=== PATIENT | male | born 1960 | race American Indian/Alaskan Native ===

== ENCOUNTER 2016-05-05 17:54 | Inpatient (IN) | payer MEDICARE, BC ==
[2016-05-05 17:55] VITALS: BMI 23.9
[2016-05-05] MEDS ORDERED: Sodium Chloride 0.9% 1,000 ML IV STA ×4 (18:15→23:33)
[2016-05-05] MEDS ORDERED: Barium Sulfate Susp 2.1% w/v, 2.0% w/w 450 mL Bottle PO ONE ×3 (18:30→18:35)
[2016-05-05 18:48] LABS: BASO # 0.1 K/uL (0.0-0.2); BASO % 0.5 % (0.0-2.0); LYMPH # 0.7 K/uL (1.0-4.3); LYMPH % 5.2 % (20.0-40.0); MEAN CORPUSCULAR HEMOGLOBIN 23.8 pg (27.0-31.0); MEAN CORPUSCULAR HGB CONC 31.7 g/dL (33.0-37.0); MONO # 0.9 K/uL (0.0-0.8); MONO % 6.4 % (0.0-10.0); NEUT # 12.2 K/uL (1.8-7.0); NEUT % 87.9 % (50.0-75.0); PLATELET COUNT 300 K/uL (130-400); RED CELL DISTRIBUTION WIDTH 14.9 % (11.5-14.5); WHITE BLOOD COUNT 13.9 K/uL (4.8-10.8)
[2016-05-05 18:54] LABS: MEAN CELL VOLUME 75.2 fl (80.0-94.0)
[2016-05-05 18:56] LABS: ALB/GLOB RATIO 1.3 (1.0-2.1); ALKALINE PHOSPHATASE 116 U/L (38-126); ALT/SGPT 47 U/L (21-72); AST/SGOT 45 U/L (17-59); BILIRUBIN,TOTAL 1.1 mg/dl (0.2-1.3); BLOOD UREA NITROGEN 23 mg/dl (9-20); CALCIUM 9.9 mg/dL (8.4-10.2); CARBON DIOXIDE 26 mmol/L (22-30); CHLORIDE 93 mmol/L (98-107); GFR AFRICAN-AMERICAN > 60; GLUCOSE,RANDOM 340 mg/dL (75-110); LIPASE 69 U/L (23-300); POTASSIUM 3.6 MMOL/L (3.6-5.0); SODIUM 149 mmol/l (132-148); TOTAL PROTEIN 9.4 G/DL (6.3-8.2)
[2016-05-05 19:16] LABS: NEUTROPHIL 90 % (42-75); TOTAL CELLS COUNTED 100
[2016-05-05 19:18] LABS: GIANT PLATELETS PRESENT; LARGE PLATELETS PRESENT
--- NOTE | 2016-05-05 20:04 | ED PDOC ---
HPI: Abdomen Time Seen by Provider: 05/05/16 18:13 Chief Complaint (Nursing): GI Problem Chief Complaint (Provider): GI problem History Per: Patient History/Exam Limitations: no limitations Onset/Duration Of Symptoms: Hrs (24x) Current Symptoms Are (Timing): Still Present Severity: Moderate Location Of Pain/Discomfort: Epigastric Associated Symptoms: Vomiting (non bloody, non bilious). denies: Fever, Other ( cough, shortness of breath) Last Bowel Movement: Today (small BM today, 2 episodes of diarrhea 24x hours ago ) Additional Complaint(s): 55 year old male with a pertinent medical history of gastroparesis, chronic pain neuropathy, HTN, and IDDM presents to the ED with complaints of a GI problem that started 24x hours ago. He reports having abdominal pain and vomiting (non bloody, non bilious), feeling weak and dehydrated, and having 2 episodes of diarrhea yesterday, but a small normal bowel movement today. He is unable to tolerate fluid and any other PO intake and reports that his symptoms are similar to previous episodes of gastroparesis attacks. He denies having any other associated symptoms including fever, cough and shortness of breath. Of note, patient usually is on insulin pump, however he reports he recently moved homes and as of yesterday evening was unable to use insulin pump due to supplies being packed. PMD: Dr. Gomez Past Medical History Reviewed: Historical Data, Nursing Documentation, Vital Signs Vital Signs: Last Vital Signs Temp 98.0 F 05/05/16 17:58 Pulse 107 H 05/05/16 23:18 Resp 18 05/05/16 23:18 BP 135/81 05/05/16 23:18 Pulse Ox 100 05/06/16 00:13 - Medical History PMH: Bronchitis, Diabetes (type I, insulin pump), HTN, Pneumonia Denies: CAD, HIV, Chronic Kidney Disease - Surgical History Surgical History: Tonsillectomy - Family History Family History: States: Diabetes (grandparents), Hypertension (grandparents) - Social History Current smoker - smoking cessation education provided: No Alcohol: None Drugs: Denies - Home Medications Home Medications: Ambulatory Orders Medication Instructions Recorded HYDROmorphone [Dilaudid] 4 mg PO Q6H PRN 08/25/15 Methadone 15 mg PO BID 08/25/15 Pregabalin [Lyrica] 100 mg PO BID 08/25/15 Atenolol [Tenormin] 100 mg PO DAILY 01/05/16 - Allergies Allergies/Adverse Reactions: Allergies Allergy/AdvReac Type Severity Reaction Status Date / Time iodine Allergy RASH Verified 05/05/16 17:58 shellfish derived Allergy RASH Verified 05/05/16 17:58 Review of Systems ROS Statement: Except As Marked, All Systems Reviewed And Found Negative Constitutional: Negative for: Fever Respiratory: Negative for: Cough, Shortness of Breath Gastrointestinal: Positive for: Nausea, Vomiting, Abdominal Pain. Negative for : Diarrhea Physical Exam - Reviewed Nursing Documentation Reviewed: Yes Vital Signs Reviewed: Yes - Physical Exam Appears: Positive for: Well, Non-toxic, Uncomfortable Head Exam: Positive for: ATRAUMATIC, NORMOCEPHALIC Skin: Positive for: Normal Color, Warm, Dry Eye Exam: Positive for: Other (tachy mucous membranes) Cardiovascular/Chest: Positive for: Regular Rate, Rhythm, Chest Non Tender Respiratory: Positive for: Normal Breath Sounds. Negative for: Respiratory Distress Gastrointestinal/Abdominal: Positive for: Tenderness (epigastric tenderness) Neurologic/Psych: Positive for: Alert, Oriented (3x) - Laboratory Results Result Diagrams: 05/05/16 18:43 05/05/16 18:43 - ECG O2 Sat by Pulse Oximetry: 100 (RA) Pulse Ox Interpretation: Normal - Critical Care Total Time (In Min): 60 Medical Decision Making Medical Decision Makin:13 Initial impression: 55 year old male has abdominal pain and vomiting insetting of gastroparesis. Initial plan: * CT abd and pelvis PO contrast only * EKG * CMP * lipase * udip * CBC * dilaudid 1mg IVP * sodium chloride 1,000ml IV 1,000mls/hr * pepcid 20mg IV * readi-cat 2 150ml PO * readi-cat 2 300ml PO * readi-cat 2 450ml PO * zofran 4mg IV * accuchek * urinalysis * reevaluation 2330: Labs reviewed, show no clinically significant abnormalities with exception of mild leukocytosis, hypernatremia, and hyperglycemia consistent with patient's known diabetes. Patient reports marked improvement in symptoms after fluid boluses, IV insulin, dilaudid, and zofran. ABG shows no indication of DKA. Case discussed with Dr. Gomez who asked provider to call Dr. Metzger. Case discussed with Dr. Metzger who is covering for Dr. Mac for GI consultation. Patient admitted under Dr. Gomez. Dx: diabetic gastroparesis, hypernatremia, hyperglycemia, abdominal pain itz 0009: CT A/P impression: 1. Stable wall thickening in the distal esophagus, cannot exclude esophagitis. 2. Stable mild colonic diverticulosis without evidence for acute diverticulitis. 3. There may be punctate nonobstructive left nephrolithiasis. Scribe Attestation: Documented by Columba Faulkner and Oswald Trujillo acting as scribes for Hair Roth MD. Provider Scribe Attestation: All medical record entries made by the Scribe were at my direction and personally dictated by me. I have reviewed the chart and agree that the record accurately reflects my personal performance of the history, physical exam, medical decision making, and the department course for this patient. I have also personally directed, reviewed, and agree with the discharge instructions and disposition. Disposition - Clinical Impression Clinical Impression: Abdominal pain, Hyperglycemia, Hypernatremia, Gastroparesis due to DM - Patient ED Disposition Is Patient to be Admitted: Yes - Disposition Disposition Time: 23:30 Condition: FAIR
[2016-05-05] MEDS ORDERED: Insulin Regular 100 units/ml IV ONE (21:26)
[2016-05-05 21:55] LABS: RBC URINE 1 /hpf (0-3); URINE BILIRUBIN NEGATIVE (NEGATIVE); URINE BLOOD SMALL (NEGATIVE); URINE COLOR YELLOW (YELLOW); URINE GLUCOSE (UA) >=500 mg/dL (Normal); URINE KETONE 80 mg/dL (NEGATIVE); URINE LEUKOCYTE ESTERASE NEG Leu/uL (Negative); URINE PROTEIN 100 mg/dL (NEGATIVE); URINE UROBILINOGEN 0.2-1.0 mg/dL (0.2-1.0); WBC URINE < 1 /hpf (0-5)
[2016-05-05] MEDS ORDERED: Insulin Regular 100 units/ml ONE (22:30)
[2016-05-05] MEDS ORDERED: Glucagon Recombinant 1 mg Inj IM PRN (23:14)
[2016-05-05] MEDS ORDERED: Dextrose 50% SYRINGE Inj (50 ml) IV PRN (23:14)
[2016-05-05 23:30] LABS: ABG ALLEN TEST YES; ARTERIAL BLOOD GAS HCO3 30.1 mmol/L (21-28); ARTERIAL BLOOD GAS MODE ROOM AIR; ARTERIAL BLOOD GAS PH 7.49 (7.35-7.45); ARTERIAL BLOOD GAS PO2 88 mm/Hg (80-100)
[2016-05-05] MEDS ORDERED: Sucralfate 1 gm/10 ml Oral Susp UD PO STA (23:57)
[2016-05-06] MEDS ORDERED: Sucralfate 1 gm/10 ml Oral Susp UD ONE (00:40)
[2016-05-06] MEDS: Insulin Regular 100 units/ml SC SCH ×3 (07:30→17:07)
--- NOTE | 2016-05-06 08:06 | CARD ---
APPROVED REPORT EKG Measurement Heart [id number] <Conclusion> Normal sinus rhythm Possible Left atrial enlargement Nonspecific ST abnormality Prolonged QT Abnormal ECG
[2016-05-06] MEDS ORDERED: Enoxaparin 30 mg Syringe SC SCH (09:00)
[2016-05-06 09:22] LABS: BASO # 0.1 K/uL (0.0-0.2); BASO % 0.3 % (0.0-2.0); LYMPH # 1.2 K/uL (1.0-4.3); LYMPH % 6.2 % (20.0-40.0); MEAN CORPUSCULAR HEMOGLOBIN 24.4 pg (27.0-31.0); MEAN CORPUSCULAR HGB CONC 32.1 g/dL (33.0-37.0); MEAN PLATELET VOLUME 9.1 fl (7.2-11.7); MONO # 1.7 K/uL (0.0-0.8); MONO % 8.2 % (0.0-10.0); NEUT # 17.2 K/uL (1.8-7.0); NEUT % 85.3 % (50.0-75.0); RED CELL DISTRIBUTION WIDTH 14.8 % (11.5-14.5); WHITE BLOOD COUNT 20.2 K/uL (4.8-10.8)
[2016-05-06 09:26] LABS: CHLORIDE 102 mmol/L (98-107); SODIUM 142 mmol/l (132-148)
[2016-05-06 09:27] LABS: POTASSIUM 3.5 MMOL/L (3.6-5.0)
[2016-05-06 09:29] LABS: ALB/GLOB RATIO 1.3 (1.0-2.1); ALKALINE PHOSPHATASE 84 U/L (38-126); ALT/SGPT 36 U/L (21-72); AST/SGOT 26 U/L (17-59); BLOOD UREA NITROGEN 18 mg/dl (9-20); CALCIUM 8.5 mg/dL (8.4-10.2); CARBON DIOXIDE 26 mmol/L (22-30); GFR AFRICAN-AMERICAN > 60; GLUCOSE,RANDOM 183 mg/dL (75-110)
[2016-05-06 09:33] LABS: PARTIAL THROMBOPLASTIN TIME 28.6 SECONDS (23.3-32.5)
[2016-05-06] MEDS: Sodium Chloride 0.45% 1,000 ML IV SCH ×2 (10:00→19:20)
--- NOTE | 2016-05-06 11:18 | CT ---
PROCEDURE: CT Abdomen and Pelvis without IV contrast. HISTORY: abd pain COMPARISON: CT abdomen and pelvis without IV contrast performed 06/17/15 TECHNIQUE: Contiguous axial images of the abdomen and pelvis. Oral contrast was administered. No IV contrast given. Coronal and Sagittal reformats generated and reviewed. Radiation dose: Total exam DLP = 535.10 mGy-cm. FINDINGS: There is limited evaluation of the solid organs without the administration of IV contrast. LOWER THORAX: No visible consolidation, pleural effusion, or pneumothorax. Marked wall thickening of the distal esophagus. LIVER: Unremarkable unenhanced appearance. GALLBLADDER AND BILE DUCTS: Unremarkable unenhanced appearance. PANCREAS: Unremarkable unenhanced appearance. SPLEEN: Unremarkable unenhanced appearance. ADRENALS: Unremarkable unenhanced appearance. KIDNEYS AND URETERS: Punctate nonobstructing left renal calculus. No hydronephrosis or obstructing renal calculus. Minimal perinephric stranding. BLADDER: The urinary bladder appears unremarkable. REPRODUCTIVE: The prostate gland appears borderline enlarged. APPENDIX: The appendix appears within normal limits of caliber. No secondary signs of acute appendicitis. BOWEL: The stomach is nondistended. The bowel loops appear within normal limits of caliber without evidence of intestinal obstruction. Diverticulosis without CT evidence of acute diverticulitis. Circumferential thickening of the rectosigmoid colon. PERITONEUM: No significant free fluid. No definite free air. LYMPH NODES: Prominent mesenteric lymph nodes and associated inflammatory changes ; correlate clinically for possibility of mesenteric panniculitis. VASCULATURE: No aortic aneurysm. BONES: Degenerative changes of the spine. Large at L2 superior endplate Schmorl's node. OTHER FINDINGS: None. IMPRESSION: Marked wall thickening of the distal esophagus. Correlate clinically including endoscopy if indicated. Circumferential thickening of the rectosigmoid colon can be seen in setting of chronic diverticulosis. Clinical correlation is recommended to exclude colitis (I.e. infectious, inflammatory, ischemic), however this is considered less likely due to lack of associated inflammatory changes. Follow-up may be considered with colonoscopy when clinically feasible. Mild diverticulosis without CT evidence of acute diverticulitis. Punctate nonobstructing left renal calculus. Prominent mesenteric lymph nodes and associated inflammatory changes ; correlate clinically for possibility of mesenteric panniculitis. Borderline enlargement of the prostate gland. Recommend correlation with PSA. Preliminary impression was provided by [facility].
--- NOTE | 2016-05-06 13:57 | CP.PCM.CON ---
<Kwadwo Mathias - Last Filed: 05/06/16 17:17> History of Present Illness - History of Present Illness History of Present Illness: PGY4 GI Fellow Consult Note Patient is a 55yo male with PMHx significant for DMT2, suspected gastroparesis, HTN, opioid induced constipation, diabetic foot ulcers who presented to the ED with nausea and vomiting. Patient states that tow days prior to arrival he ate some questionable [place] food and immediately felt ill shortly thereafter with abdominal cramping, nausea and vomiting. He continued to have multiple bouts of emesis and began to notice some dark black/maroon emesis prompting him to come to the ED. Symptoms are similar to episodes he has had in the past of intractable vomiting which he attributes to gastroparesis. Does admit to more liquid/loose stool in the days leading up to admission but believes this could be secondary to his Movantik which he uses on an as needed basis. No weight loss , fever, chills, sick contacts or recent antibiotic usage. PMHx: See HPI PSHx: Right foot osteomyelitis debridement FHx: Denies Social: Denies tobacco, EtOH, illicit drug use Endo: 04/05 - EGD/Colonoscopy - 8mm cecal tubular adenoma, diverticulosis; H pylori negative gastritis Review of Systems - Constitutional Constitutional: Anorexia, Weakness. absent: Chills, Fever - EENT Eyes: absent: Change in Vision Nose/Mouth/Throat: absent: Sore Throat - Cardiovascular Cardiovascular: absent: Chest Pain, Claudication, Diaphoresis - Respiratory Respiratory: absent: Cough, Dyspnea, Excessive Mucous Production - Gastrointestinal Gastrointestinal: Abdominal Pain, Constipation, Cramping, Diarrhea, Loose Stools , Nausea, Vomiting. absent: Dyspepsia, Dysphagia, Heartburn, Hematochezia, Odynophagia - Genitourinary Genitourinary: absent: Change in Urinary Stream, Dysuria, Urinary Urgency - Musculoskeletal Musculoskeletal: absent: Back Pain, Neck Pain - Integumentary Integumentary: absent: New Lesions, Rash - Neurological Neurological: absent: Dizziness, Numbness, Focal Weakness - Psychiatric Psychiatric: absent: Anxiety, Depression - Endocrine Endocrine: absent: Polydipsia, Polyphagia, Polyuria - Hematologic/Lymphatic Hematologic: absent: Easy Bleeding, Easy Bruising, Lymphadenopathy Past Patient History - Past Medical History & Family History Past Medical History?: Yes - Past Social History Smoking Status: Never Smoked - CARDIAC Hx Cardiac Disorders: Yes Hx Hypertension: Yes - PULMONARY Hx Respiratory Disorders: Yes Hx Bronchitis: Yes Hx Pneumonia: Yes - NEUROLOGICAL Hx Neurological Disorder: Yes (Neuropathy) - HEENT Hx HEENT Problems: No - RENAL Hx Chronic Kidney Disease: No - ENDOCRINE/METABOLIC Hx Endocrine Disorders: Yes Hx Diabetes Mellitus Type 2: Yes - HEMATOLOGICAL/ONCOLOGICAL Hx Blood Disorders: No Hx Human Immunodeficiency Virus (HIV): No - INTEGUMENTARY Hx Dermatological Problems: No Other/Comment: Diabetic ulcer left foot - MUSCULOSKELETAL/RHEUMATOLOGICAL Hx Musculoskeletal Disorders: No Hx Falls: No - GASTROINTESTINAL Hx Gastrointestinal Disorders: Yes Other/Comment: gastroparesis - GENITOURINARY/GYNECOLOGICAL Hx Genitourinary Disorders: No - PSYCHIATRIC Hx Substance Use: No - SURGICAL HISTORY Hx Surgeries: Yes Hx Tonsillectomy: Yes - ANESTHESIA Hx Anesthesia: Yes Hx Anesthesia Reactions: No Hx Malignant Hyperthermia: No Has any member of the family had a problem w/ anesthesia?: No Meds Allergies/Adverse Reactions: Allergies Allergy/AdvReac Type Severity Reaction Status Date / Time iodine Allergy RASH Verified 05/05/16 17:58 shellfish derived Allergy RASH Verified 05/05/16 17:58 - Medications Medications: Current Medications Atenolol (Atenolol) 100 mg PO DAILY [facility] Dextrose (Glutose 15) 0 gm PO ONCE PRN; Protocol PRN Reason: Hypoglycemia Protocol Dextrose (Dextrose 50% Inj) 0 ml IV STAT PRN; Protocol PRN Reason: Hyglycemia Protocol Enoxaparin Sodium (Lovenox) 40 mg SC DAILY [facility] PRN Reason: Protocol Famotidine (Pepcid) 20 mg IVP Q12 [facility] Last Admin: 05/06/16 12:05 Dose: 20 mg Glucagon (Glucagen Diagnostic Kit) 0 mg IM STAT PRN; Protocol PRN Reason: Hypoglycemia Protocol Hydromorphone HCl (Dilaudid) 1 mg IVP Q6 PRN PRN Reason: abdominal pain Sodium Chloride (Sodium Chloride 0.45%) 1,000 mls @ 100 mls/hr IV .Q10H [facility] Stop: 05/07/16 09:16 Last Admin: 05/06/16 10:00 Dose: 100 mls/hr Insulin Human Regular (Humulin R) 0 units SC ACHS [facility]GEN[facility] PRN Reason: Protocol Metoclopramide HCl (Reglan) 10 mg IVPB Q6 PRN PRN Reason: Nausea/Vomiting Last Admin: 05/06/16 06:05 Dose: 10 mg Physical Exam - Constitutional Appears: Non-toxic, No Acute Distress - Eye Exam Eye Exam: EOMI, PERRL - ENT Exam ENT Exam: Mucous Membranes Moist - Respiratory Exam Respiratory Exam: Clear to Auscultation Bilateral. absent: Rales, Rhonchi, Wheezes - Cardiovascular Exam Cardiovascular Exam: RRR, +S1, +S2 - GI/Abdominal Exam GI & Abdominal Exam: Normal Bowel Sounds, Soft. absent: Distended, Firm, Guarding, Organomegaly, Rigid, Tenderness - Extremities Exam Extremities exam: Positive for: normal inspection. Negative for: pedal edema - Neurological Exam Neurological exam: Alert, Oriented x3 - Psychiatric Exam Psychiatric exam: Normal Affect, Normal Mood - Skin Skin Exam: Dry, Warm Results - Vital Signs Recent Vital Signs: Last Vital Signs Temp 99 F 05/06/16 07:53 Pulse 109 H 05/06/16 07:53 Resp 20 05/06/16 07:53 BP 155/90 H 05/06/16 07:53 Pulse Ox 98 05/06/16 07:53 - Labs Result Diagrams: 05/06/16 09:10 05/06/16 09:10 Labs: Laboratory Results - last 24 hr 05/05/16 05/05/16 05/05/16 21:43 22:34 23:02 WBC RBC Hgb Hct MCV MCH MCHC RDW Plt Count MPV Neut % (Auto) Lymph % (Auto) Clayton % (Auto) Eos % (Auto) Baso % (Auto) Neut # Lymph # Clayton # Eos # Baso # PT INR APTT pCO2 40 pO2 88 HCO3 30.1 H ABG pH 7.49 H ABG Total CO2 31.7 H ABG O2 Saturation 99.4 H ABG Base Excess 6.6 H Edmund Test Yes ABG Potassium 3.2 L A-a O2 Difference 12.0 Sodium 138.0 Chloride 106.0 Glucose 193 H Lactate 2.0 Vent Mode Room air FiO2 21.0 Crit Value Called To etta Roth md Crit Value Called By Sb Crit Value Read Back Y Blood Gas Notified Time 2330 Potassium Carbon Dioxide Anion Gap BUN Creatinine Est GFR ( Amer) Est GFR (Non-Af Amer) POC Glucose (mg/dL) 262 H Random Glucose Calcium Total Bilirubin AST ALT Alkaline Phosphatase Total Protein Albumin Globulin Albumin/Globulin Ratio Arterial Blood Potassium 3.2 L Urine Color Yellow Urine Clarity Clear Urine pH 5.0 Ur Specific Dresher 1.032 H Urine Protein 100 Urine Glucose (UA) >=500 Urine Ketones 80 Urine Blood Small Urine Nitrate Negative Urine Bilirubin Negative Urine Urobilinogen 0.2-1.0 Ur Leukocyte Esterase Neg Urine RBC (Auto) 1 Urine Microscopic WBC < 1 05/05/16 05/06/16 05/06/16 23:46 05:43 09:10 WBC 20.2 H RBC 5.66 Hgb 13.8 Hct 43.0 MCV 76.0 L MCH 24.4 L MCHC 32.1 L RDW 14.8 H Plt Count 229 MPV 9.1 Neut % (Auto) 85.3 H Lymph % (Auto) 6.2 L Clayton % (Auto) 8.2 Eos % (Auto) 0.0 Baso % (Auto) 0.3 Neut # 17.2 H Lymph # 1.2 Clayton # 1.7 H Eos # 0.0 Baso # 0.1 PT 12.1 H INR 1.16 H APTT 28.6 pCO2 pO2 HCO3 ABG pH ABG Total CO2 ABG O2 Saturation ABG Base Excess Edmund Test ABG Potassium A-a O2 Difference Sodium 142 Chloride 102 Glucose Lactate Vent Mode FiO2 Crit Value Called To Crit Value Called By Crit Value Read Back Blood Gas Notified Time Potassium 3.5 L Carbon Dioxide 26 Anion Gap 18 BUN 18 Creatinine 0.8 Est GFR ( Amer) > 60 Est GFR (Non-Af Amer) > 60 POC Glucose (mg/dL) 199 H 185 H Random Glucose 183 H Calcium 8.5 Total Bilirubin 1.0 AST 26 ALT 36 Alkaline Phosphatase 84 Total Protein 7.0 Albumin 4.0 Globulin 3.0 Albumin/Globulin Ratio 1.3 Arterial Blood Potassium Urine Color Urine Clarity Urine pH Ur Specific Dresher Urine Protein Urine Glucose (UA) Urine Ketones Urine Blood Urine Nitrate Urine Bilirubin Urine Urobilinogen Ur Leukocyte Esterase Urine RBC (Auto) Urine Microscopic WBC Assessment & Plan - Assessment and Plan (Free Text) Assessment: Patient is a 55yo male with PMHx significant for DMT2, suspected gastroparesis, HTN, opioid induced constipation, diabetic foot ulcers who presented to the ED with nausea and vomiting. -Nausea and vomiting; suspected gastroparesis -Opioid induced constipation -Diverticulosis Plan: -Zofran and reglan PRN -Advance diet as tolerated, full liquid today -Recent EGD/Colonoscopy reviewed -CT A/P reviewed, esophageal changes likely a result of frequent vomiting in setting of recent unremarkable EGD - Date & Time Date: 05/06/16 Time: 11:20 <Eamon Mac MD - Last Filed: 05/06/16 20:14> Meds - Medications Medications: Current Medications Atenolol (Atenolol) 100 mg PO DAILY [facility] Last Admin: 05/06/16 14:05 Dose: 100 mg Dextrose (Glutose 15) 0 gm PO ONCE PRN; Protocol PRN Reason: Hypoglycemia Protocol Dextrose (Dextrose 50% Inj) 0 ml IV STAT PRN; Protocol PRN Reason: Hyglycemia Protocol Enoxaparin Sodium (Lovenox) 40 mg SC DAILY [facility] PRN Reason: Protocol Last Admin: 05/06/16 14:06 Dose: 40 mg Famotidine (Pepcid) 20 mg IVP Q12 [facility] Last Admin: 05/06/16 12:05 Dose: 20 mg Glucagon (Glucagen Diagnostic Kit) 0 mg IM STAT PRN; Protocol PRN Reason: Hypoglycemia Protocol Hydromorphone HCl (Dilaudid) 1 mg IVP Q6 PRN PRN Reason: abdominal pain Sodium Chloride (Sodium Chloride 0.45%) 1,000 mls @ 100 mls/hr IV .Q10H [facility] Stop: 05/07/16 09:16 Last Admin: 05/06/16 10:00 Dose: 100 mls/hr Insulin Human Regular (Humulin R) 0 units SC ACHS [facility] PRN Reason: Protocol Last Admin: 05/06/16 17:07 Dose: 3 units Methadone HCl (Methadone) 5 mg PO Q8 [facility] Metoclopramide HCl (Reglan) 10 mg IVPB Q6 PRN PRN Reason: Nausea/Vomiting Last Admin: 05/06/16 06:05 Dose: 10 mg Pregabalin (Lyrica) 100 mg PO BID [facility] Results - Vital Signs Recent Vital Signs: Last Vital Signs Temp 99.3 F 05/06/16 17:40 Pulse 80 05/06/16 17:40 Resp 20 05/06/16 17:40 BP 130/86 05/06/16 17:40 Pulse Ox 96 05/06/16 17:40 - Labs Result Diagrams: 05/06/16 09:10 05/06/16 09:10 Labs: Laboratory Results - last 24 hr 05/05/16 05/05/16 05/05/16 21:43 22:34 23:02 WBC RBC Hgb Hct MCV MCH MCHC RDW Plt Count MPV Neut % (Auto) Lymph % (Auto) Clayton % (Auto) Eos % (Auto) Baso % (Auto) Neut # Lymph # Clayton # Eos # Baso # PT INR APTT pCO2 40 pO2 88 HCO3 30.1 H ABG pH 7.49 H ABG Total CO2 31.7 H ABG O2 Saturation 99.4 H ABG Base Excess 6.6 H Edmund Test Yes ABG Potassium 3.2 L A-a O2 Difference 12.0 Sodium 138.0 Chloride 106.0 Glucose 193 H Lactate 2.0 Vent Mode Room air FiO2 21.0 Crit Value Called To etta Roth md Crit Value Called By Sb Crit Value Read Back Y Blood Gas Notified Time 2330 Potassium Carbon Dioxide Anion Gap BUN Creatinine Est GFR ( Amer) Est GFR (Non-Af Amer) POC Glucose (mg/dL) 262 H Random Glucose Calcium Total Bilirubin AST ALT Alkaline Phosphatase Total Protein Albumin Globulin Albumin/Globulin Ratio Arterial Blood Potassium 3.2 L Urine Color Yellow Urine Clarity Clear Urine pH 5.0 Ur Specific Dresher 1.032 H Urine Protein 100 Urine Glucose (UA) >=500 Urine Ketones 80 Urine Blood Small Urine Nitrate Negative Urine Bilirubin Negative Urine Urobilinogen 0.2-1.0 Ur Leukocyte Esterase Neg Urine RBC (Auto) 1 Urine Microscopic WBC < 1 05/05/16 05/06/16 05/06/16 23:46 05:43 09:10 WBC 20.2 H RBC 5.66 Hgb 13.8 Hct 43.0 MCV 76.0 L MCH 24.4 L MCHC 32.1 L RDW 14.8 H Plt Count 229 MPV 9.1 Neut % (Auto) 85.3 H Lymph % (Auto) 6.2 L Clayton % (Auto) 8.2 Eos % (Auto) 0.0 Baso % (Auto) 0.3 Neut # 17.2 H Lymph # 1.2 Clayton # 1.7 H Eos # 0.0 Baso # 0.1 PT 12.1 H INR 1.16 H APTT 28.6 pCO2 pO2 HCO3 ABG pH ABG Total CO2 ABG O2 Saturation ABG Base Excess Edmund Test ABG Potassium A-a O2 Difference Sodium 142 Chloride 102 Glucose Lactate Vent Mode FiO2 Crit Value Called To Crit Value Called By Crit Value Read Back Blood Gas Notified Time Potassium 3.5 L Carbon Dioxide 26 Anion Gap 18 BUN 18 Creatinine 0.8 Est GFR ( Amer) > 60 Est GFR (Non-Af Amer) > 60 POC Glucose (mg/dL) 199 H 185 H Random Glucose 183 H Calcium 8.5 Total Bilirubin 1.0 AST 26 ALT 36 Alkaline Phosphatase 84 Total Protein 7.0 Albumin 4.0 Globulin 3.0 Albumin/Globulin Ratio 1.3 Arterial Blood Potassium Urine Color Urine Clarity Urine pH Ur Specific Dresher Urine Protein Urine Glucose (UA) Urine Ketones Urine Blood Urine Nitrate Urine Bilirubin Urine Urobilinogen Ur Leukocyte Esterase Urine RBC (Auto) Urine Microscopic WBC Attending/Attestation - Attestation I have personally seen and examined this patient.: Yes I have fully participated in the care of the patient.: Yes I have reviewed all pertinent clinical information: Yes Notes (Text): 05/06/16 20:12 Patient seen and examined with GI fellow on rounds. This is a 55 yr old male with PMHx significant for DMT2, suspected gastroparesis, HTN, opioid induced constipation, diabetic foot ulcers who presented to the ED with nausea and vomiting after finishing insulin in his pump on friday. Had big lunch on friday that aggravated symptoms likely due to gastroparesis. Also on 50 mg methadone bid that induces constipation. Will give laxatives and bowel regimen and start clear liquid diet. Strict glycemic control. Advance diet as tolerated. Zofran prn.
[2016-05-06] MEDS: ATENOLOL 100 MG TAB PO SCH (14:05)
[2016-05-06] MEDS: Enoxaparin 40 mg Syringe SC SCH (14:06)
[2016-05-06] MEDS ORDERED: Potassium Chloride 20 mEq ER Tab PO ONE (14:47)
--- NOTE | 2016-05-06 19:14 | CP.PCM.HP ---
History of Present Illness - History of Present Illness History of Present Illness: Patient is a 55yo male with Hx significant for DM, gastroparesis, HTN, opioid induced constipation, diabetic foot ulcers who presented with nausea and vomiting. Present on Admission - Present on Admission Any Indicators Present on Admission: No Past Patient History - Past Medical History & Family History Past Medical History?: Yes - Past Social History Smoking Status: Never Smoked - CARDIAC Hx Cardiac Disorders: Yes Hx Hypertension: Yes - PULMONARY Hx Respiratory Disorders: Yes Hx Bronchitis: Yes Hx Pneumonia: Yes - NEUROLOGICAL Hx Neurological Disorder: Yes (Neuropathy) - HEENT Hx HEENT Problems: No - RENAL Hx Chronic Kidney Disease: No - ENDOCRINE/METABOLIC Hx Endocrine Disorders: Yes Hx Diabetes Mellitus Type 2: Yes - HEMATOLOGICAL/ONCOLOGICAL Hx Blood Disorders: No Hx Human Immunodeficiency Virus (HIV): No - INTEGUMENTARY Hx Dermatological Problems: No Other/Comment: Diabetic ulcer left foot - MUSCULOSKELETAL/RHEUMATOLOGICAL Hx Musculoskeletal Disorders: No Hx Falls: No - GASTROINTESTINAL Hx Gastrointestinal Disorders: Yes Other/Comment: gastroparesis - GENITOURINARY/GYNECOLOGICAL Hx Genitourinary Disorders: No - PSYCHIATRIC Hx Substance Use: No - SURGICAL HISTORY Hx Surgeries: Yes Hx Tonsillectomy: Yes - ANESTHESIA Hx Anesthesia: Yes Hx Anesthesia Reactions: No Hx Malignant Hyperthermia: No Has any member of the family had a problem w/ anesthesia?: No Meds Allergies/Adverse Reactions: Allergies Allergy/AdvReac Type Severity Reaction Status Date / Time iodine Allergy RASH Verified 05/05/16 17:58 shellfish derived Allergy RASH Verified 05/05/16 17:58 Results - Vital Signs Recent Vital Signs: Last Vital Signs Temp 99.3 F 05/06/16 17:40 Pulse 80 05/06/16 17:40 Resp 20 05/06/16 17:40 BP 130/86 05/06/16 17:40 Pulse Ox 96 05/06/16 17:40 - Labs Result Diagrams: 05/06/16 09:10 05/06/16 09:10 Labs: Laboratory Results - last 24 hr 05/05/16 05/05/16 05/05/16 21:43 22:34 23:02 WBC RBC Hgb Hct MCV MCH MCHC RDW Plt Count MPV Neut % (Auto) Lymph % (Auto) Mcdowell % (Auto) Eos % (Auto) Baso % (Auto) Neut # Lymph # Mcdowell # Eos # Baso # PT INR APTT pCO2 40 pO2 88 HCO3 30.1 H ABG pH 7.49 H ABG Total CO2 31.7 H ABG O2 Saturation 99.4 H ABG Base Excess 6.6 H Edmund Test Yes ABG Potassium 3.2 L A-a O2 Difference 12.0 Sodium 138.0 Chloride 106.0 Glucose 193 H Lactate 2.0 Vent Mode Room air FiO2 21.0 Crit Value Called To etta Roth md Crit Value Called By Sb Crit Value Read Back Y Blood Gas Notified Time 2330 Potassium Carbon Dioxide Anion Gap BUN Creatinine Est GFR ( Amer) Est GFR (Non-Af Amer) POC Glucose (mg/dL) 262 H Random Glucose Calcium Total Bilirubin AST ALT Alkaline Phosphatase Total Protein Albumin Globulin Albumin/Globulin Ratio Arterial Blood Potassium 3.2 L Urine Color Yellow Urine Clarity Clear Urine pH 5.0 Ur Specific Walker 1.032 H Urine Protein 100 Urine Glucose (UA) >=500 Urine Ketones 80 Urine Blood Small Urine Nitrate Negative Urine Bilirubin Negative Urine Urobilinogen 0.2-1.0 Ur Leukocyte Esterase Neg Urine RBC (Auto) 1 Urine Microscopic WBC < 1 05/05/16 05/06/16 05/06/16 23:46 05:43 09:10 WBC 20.2 H RBC 5.66 Hgb 13.8 Hct 43.0 MCV 76.0 L MCH 24.4 L MCHC 32.1 L RDW 14.8 H Plt Count 229 MPV 9.1 Neut % (Auto) 85.3 H Lymph % (Auto) 6.2 L Mcdowell % (Auto) 8.2 Eos % (Auto) 0.0 Baso % (Auto) 0.3 Neut # 17.2 H Lymph # 1.2 Mcdowell # 1.7 H Eos # 0.0 Baso # 0.1 PT 12.1 H INR 1.16 H APTT 28.6 pCO2 pO2 HCO3 ABG pH ABG Total CO2 ABG O2 Saturation ABG Base Excess Edmund Test ABG Potassium A-a O2 Difference Sodium 142 Chloride 102 Glucose Lactate Vent Mode FiO2 Crit Value Called To Crit Value Called By Crit Value Read Back Blood Gas Notified Time Potassium 3.5 L Carbon Dioxide 26 Anion Gap 18 BUN 18 Creatinine 0.8 Est GFR ( Amer) > 60 Est GFR (Non-Af Amer) > 60 POC Glucose (mg/dL) 199 H 185 H Random Glucose 183 H Calcium 8.5 Total Bilirubin 1.0 AST 26 ALT 36 Alkaline Phosphatase 84 Total Protein 7.0 Albumin 4.0 Globulin 3.0 Albumin/Globulin Ratio 1.3 Arterial Blood Potassium Urine Color Urine Clarity Urine pH Ur Specific Walker Urine Protein Urine Glucose (UA) Urine Ketones Urine Blood Urine Nitrate Urine Bilirubin Urine Urobilinogen Ur Leukocyte Esterase Urine RBC (Auto) Urine Microscopic WBC Assessment & Plan - Assessment and Plan (Free Text) Assessment: Diabetic Gastroparesis with vomiting IVF PPI Reglan GI NIIDDM IVF Endo Chronic pain Dysthymia Opiod induced constipation Elevated WBC ?? cultures ID Chronic foot ulcer ID Podiatry
[2016-05-06] MEDS ORDERED: Piperacillin/Tazobact 3.375 GM in Sodium Chloride 0.9% 100 ML IVPB STA (23:32)
[2016-05-07] MEDS: Insulin Regular 100 units/ml SC SCH ×3 (00:38→12:37)
--- NOTE | 2016-05-07 02:59 | CON ---
DATE: 05/06/2016 ROOM: 651 HISTORY OF PRESENT ILLNESS: This is a 55-year-old male with known history of type 2 insulin-requirin g diabetes, currently using a Medtronic insulin pump who presents here with loose watery diarrhea and supervening nausea, dyspepsia, and vomiting with significant history of diabetic gastroparesis and i s now being admitted for closer workup and management and is also being referred for diabetic evaluat ion and management. PAST MEDICAL HISTORY: As mentioned above, history of type 2 insulin-requiring diabetes on a Medtroni c insulin pump that gives him basal insulin therapy continuously for 24 hours with a bolus insulin do sing for mealtime and has been doing fairly well with near optimal glycemic control and A1c ranging f rom 7% and 8% as noted. However, he also has significant history of diabetic gastroparesis and has h ad multiple admissions for exacerbations of intractable vomiting episodes as noted thereof. History of hypertension and dyslipidemia, history of diabetic retinopathy and polyneuropathy with diabetic ne phropathy and underlying proteinuria. Also significant history of coronary artery disease and periph eral arterial disease and vasculopathy. FAMILY HISTORY: Positive for hypertension and diabetes. SOCIAL HISTORY: The patient has supportive family. No known substance use. REVIEW OF SYSTEMS: As mentioned above, admits to generalized body weakness with easy fatigability an d tiredness and suboptimal energy level. Also admits to episodic dizziness and lightheadedness, wors e on the day of admission. No chest pains or palpitations or PNDs. His oral intake has been variabl e and suboptimal with recent bouts of nausea, dyspepsia, and intractable vomiting episodes with super vening loose watery diarrhea. No recent alterations of urinary patterns otherwise. PHYSICAL EXAMINATION: GENERAL: An average built male in no apparent distress. VITAL SIGNS: Blood pressure 144/80, pulse of 70 beats per minute and regular, temperature 98, respir ations 20. Height is 5 feet 7, weight is 162 pounds. HEENT: Head normocephalic. Eyes anicteric with pink conjunctivae. Fundoscopy not possible at this time. Ears, nose and throat otherwise normal. NECK: Supple. Thyroid gland is normal size. No carotid bruits. No cervical adenopathy. CARDIOPULMONARY: Some adynamic precordium. S1, S2 is rapid and regular. LUNGS: Clear to auscultation. ABDOMEN: Flat, soft with positive bowel sounds. EXTREMITIES: No peripheral edema. Pulses are +2 bilaterally. LABORATORY DATA: The initial chemistries showed a BUN of 23, sodium 149, potassium 3.6, chloride 93, CO2 of 26, glucose 340 and creatinine 1.1. His subsequent glucose levels have ranged from 185-262 m g/dL. ASSESSMENT: This is a 55-year-old male with uncontrolled and decompensated type 2 insulin-requiring diabetes, presenting here with hyperglycemic accelerations and concomitant exacerbation of diabetic g astroparesis with nausea, dyspepsia, intractable vomiting episodes and supervening loose watery diarr hea. He also has significant diabetic microvascular complications of diabetic retinopathy, polyneuro raya, and nephropathy with diabetic macrovascular complications of coronary artery disease and perip heral arterial disease and vasculopathy. PLAN OF MANAGEMENT: As discussed with the patient and staff, we will continue the low dose coverage scale and we will modify furthermore his low dose algorithm with regular insulin as given. He is cur rently on a liquid diet at this time and, once the diet is advanced to solid foods, then we will swit ch him over to a more physiologic basal and bolus insulin dose regimen as indicated. He does not hav e the adequate insulin supplies at this time, so we cannot restart or resume his Medtronic insulin pu mp. He has yet to call the [facility] for supplies to be mailed into his home at this time. We will obtain a hemoglobin A1c to confirm his prior glycemic control and baseline thyroid function s tudies and lipid panel will be ordered. We will obtain serial chemistries and supplement accordingly as needed and we will continue the IV hydration as ordered. We will follow. Rizwana Raygoza MD cc: [id number] TT: 05/07/2016 02:58:16 Confirmation # [id number] Dictation # [id number] [email or web address]
[2016-05-07] MEDS: Sodium Chloride 0.45% 1,000 ML IV SCH (06:05)
[2016-05-07 06:44] LABS: BASO # 0.1 K/uL (0.0-0.2); BASO % 0.6 % (0.0-2.0); EOS # 0.1 K/uL (0.0-0.7); EOS % 0.7 % (0.0-4.0); HEMATOCRIT 40.9 % (35.0-51.0); LYMPH # 2.7 K/uL (1.0-4.3); LYMPH % 19.1 % (20.0-40.0); MEAN CELL VOLUME 76.6 fl (80.0-94.0); MEAN CORPUSCULAR HGB CONC 31.3 g/dL (33.0-37.0); MONO # 1.4 K/uL (0.0-0.8); MONO % 9.8 % (0.0-10.0); NEUT # 9.7 K/uL (1.8-7.0); NEUT % 69.8 % (50.0-75.0); NRBC % 0.1 % (0.0-0.0); RED CELL DISTRIBUTION WIDTH 15.2 % (11.5-14.5)
[2016-05-07 06:52] LABS: ALB/GLOB RATIO 1.2 (1.0-2.1); ALKALINE PHOSPHATASE 73 U/L (38-126); ALT/SGPT 33 U/L (21-72); AST/SGOT 20 U/L (17-59); BILIRUBIN,TOTAL 1.3 mg/dl (0.2-1.3); BLOOD UREA NITROGEN 17 mg/dl (9-20); CALCIUM 8.5 mg/dL (8.4-10.2); CARBON DIOXIDE 30 mmol/L (22-30); CHLORIDE 96 mmol/L (98-107); CHOLESTEROL 139 mg/dL (0-199); GFR AFRICAN-AMERICAN > 60; GLUCOSE,RANDOM 222 mg/dL (75-110); POTASSIUM 3.5 MMOL/L (3.6-5.0); SODIUM 137 mmol/l (132-148); TOTAL PROTEIN 6.3 G/DL (6.3-8.2)
[2016-05-07 07:21] LABS: THYROID STIMULATING HORMONE 0.57 mIU/ML (0.46-4.68)
[2016-05-07] MEDS: ATENOLOL 100 MG TAB PO SCH (08:24)
[2016-05-07] MEDS: Enoxaparin 40 mg Syringe SC SCH (08:25)
[2016-05-07] MEDS ORDERED: Potassium Chloride 20 mEq ER Tab PO ONE (10:15)
--- NOTE | 2016-05-07 10:28 | CP.PCM.CON ---
History of Present Illness - History of Present Illness History of Present Illness: 55yo male with PMHx significant for DMT2, suspected gastroparesis, HTN, opioid induced constipation, diabetic foot ulcers who presented to the ED with nausea and vomiting. Patient states that 2 days prior to arrival he ate some questionable [place] food and immediately felt ill shortly thereafter with abdominal cramping, nausea and vomiting. PMHx: See HPI PSHx: Right foot osteomyelitis debridement FHx: Denies Social: Denies tobacco, EtOH, illicit drug use Review of Systems - Constitutional Constitutional: As Per HPI - EENT Eyes: As Per HPI, Blurred Vision Ears: absent: As Per HPI, Decreased Hearing, Ear Discharge, Ear Pain, Tinnitus, Abnormal Hearing, Disequilibrium, Dizziness, Other Nose/Mouth/Throat: absent: As Per HPI, Epistaxis, Nasal Congestion, Nasal Discharge, Nasal Obstruction, Nasal Trauma, Nose Pain, Post Nasal Drip, Sinus Pain, Sinus Pressure, Bleeding Gums, Change in Voice, Dental Pain, Dry Mouth, Dysphagia, Halitosis, Hoarsness, Lip Swelling, Mouth Lesions, Mouth Pain, Odynophagia, Sore Throat, Throat Swelling, Tongue Swelling, Facial Pain, Neck Pain, Neck Mass, Other - Cardiovascular Cardiovascular: absent: As Per HPI, Acrocyanosis, Chest Pain, Chest Pain at Rest , Chest Pain with Activity, Claudication, Diaphoresis, Dyspnea, Dyspnea on Exertion, Edema, Irregular Heart Rhythm, Pain Radiating to Arm/Neck/Jaw, Leg Edema, Leg Ulcers, Lightheadedness, Orthopnea, Palpitations, Paroxysmal Nocturnal Dyspnea, Pedal Edema, Radiating Pain, Rapid Heart Rate, Slow Heart Rate, Syncope, Other - Respiratory Respiratory: absent: As Per HPI, Cough, Dyspnea, Hemoptysis, Dyspnea on Exertion , Wheezing, Snoring, Stridor, Pain on Inspiration, Chest Congestion, Excessive Mucous Production, Change in Mucous Color, Pain with Coughing, Other - Gastrointestinal Gastrointestinal: As Per HPI - Genitourinary Genitourinary: absent: As Per HPI, Change in Urinary Stream, Difficulty Urinating, Dysuria, Flank Pain, Hematuria, Pyuria, Nocturia, Urinary Incontinence, Urinary Frequency, Urinary Hesitance, Urinary Urgency, Voiding Freq/Small Amts, Freq UTI, Hx Renal/Bladder Calculi, Hx /Renal Surgery, Bladder Distension, Other - Musculoskeletal Musculoskeletal: As Per HPI - Integumentary Integumentary: As Per HPI, Skin Pain, Wounds - Neurological Neurological: As Per HPI - Psychiatric Psychiatric: absent: As Per HPI, Abnormal Sleep Pattern, Anhedonia, Anxiety, Auditory Hallucinations, Behavioral Changes, Change in Appetite, Change in Libido, Confusion, Depression, Difficulty Concentrating, Hallucinations, Homicidal Ideation, Hopelessness, Irritability, Memory Loss, Mood Swings, Panic Attacks, Paranoia, Suicidal Ideation, Visual Hallucinations, Tactile Hallucinations, Other - Endocrine Endocrine: As Per HPI - Hematologic/Lymphatic Hematologic: absent: As Per HPI, Easy Bleeding, Easy Bruising, Lymphadenopathy, Other Past Patient History - Past Medical History & Family History Past Medical History?: Yes - Past Social History Smoking Status: Never Smoked - CARDIAC Hx Cardiac Disorders: Yes Hx Hypertension: Yes - PULMONARY Hx Respiratory Disorders: Yes Hx Bronchitis: Yes Hx Pneumonia: Yes - NEUROLOGICAL Hx Neurological Disorder: Yes (Neuropathy) - HEENT Hx HEENT Problems: No - RENAL Hx Chronic Kidney Disease: No - ENDOCRINE/METABOLIC Hx Endocrine Disorders: Yes Hx Diabetes Mellitus Type 2: Yes - HEMATOLOGICAL/ONCOLOGICAL Hx Blood Disorders: No Hx Human Immunodeficiency Virus (HIV): No - INTEGUMENTARY Hx Dermatological Problems: No Other/Comment: Diabetic ulcer left foot - MUSCULOSKELETAL/RHEUMATOLOGICAL Hx Musculoskeletal Disorders: No Hx Falls: No - GASTROINTESTINAL Hx Gastrointestinal Disorders: Yes Other/Comment: gastroparesis - GENITOURINARY/GYNECOLOGICAL Hx Genitourinary Disorders: No - PSYCHIATRIC Hx Substance Use: No - SURGICAL HISTORY Hx Surgeries: Yes Hx Tonsillectomy: Yes - ANESTHESIA Hx Anesthesia: Yes Hx Anesthesia Reactions: No Hx Malignant Hyperthermia: No Has any member of the family had a problem w/ anesthesia?: No Meds Allergies/Adverse Reactions: Allergies Allergy/AdvReac Type Severity Reaction Status Date / Time iodine Allergy RASH Verified 05/05/16 17:58 shellfish derived Allergy RASH Verified 05/05/16 17:58 - Medications Medications: Current Medications Atenolol (Atenolol) 100 mg PO DAILY [facility] Last Admin: 05/07/16 08:24 Dose: 100 mg Dextrose (Glutose 15) 0 gm PO ONCE PRN; Protocol PRN Reason: Hypoglycemia Protocol Dextrose (Dextrose 50% Inj) 0 ml IV STAT PRN; Protocol PRN Reason: Hyglycemia Protocol Enoxaparin Sodium (Lovenox) 40 mg SC DAILY [facility] PRN Reason: Protocol Last Admin: 05/07/16 08:25 Dose: 40 mg Famotidine (Pepcid) 20 mg IVP Q12 [facility] Last Admin: 05/07/16 08:24 Dose: 20 mg Glucagon (Glucagen Diagnostic Kit) 0 mg IM STAT PRN; Protocol PRN Reason: Hypoglycemia Protocol Hydromorphone HCl (Dilaudid) 1 mg IVP Q6 PRN PRN Reason: abdominal pain Last Admin: 05/06/16 22:07 Dose: 1 mg Metronidazole (Flagyl 500mg/100ml Ns) 100 mls @ 100 mls/hr IVPB Q8 [facility] Piperacillin Sod/Tazobactam (Sod 2.25 gm/ Sodium Chloride) 100 mls @ 100 mls/ hr IVPB Q8 [facility] Insulin Human Regular (Humulin R) 0 units SC ACHS [facility] PRN Reason: Protocol Last Admin: 05/07/16 06:38 Dose: 2 units Methadone HCl (Methadone) 5 mg PO Q8 [facility] Last Admin: 05/07/16 08:30 Dose: 5 mg Metoclopramide HCl (Reglan) 10 mg IVPB Q6 PRN PRN Reason: Nausea/Vomiting Last Admin: 05/07/16 08:18 Dose: 10 mg Pregabalin (Lyrica) 100 mg PO BID [facility] Last Admin: 05/07/16 08:30 Dose: 100 mg Physical Exam - Constitutional Appears: Cachectic, Chronically Ill - Head Exam Head Exam: ATRAUMATIC, NORMAL INSPECTION, NORMOCEPHALIC - Eye Exam Eye Exam: PERRL. absent: Scleral icterus - ENT Exam ENT Exam: Mucous Membranes Dry, Normal External Ear Exam, Normal Oropharynx - Neck Exam Neck exam: Negative for: Lymphadenopathy, Thyromegaly - Respiratory Exam Respiratory Exam: Decreased Breath Sounds, Clear to Auscultation Bilateral - Cardiovascular Exam Cardiovascular Exam: REGULAR RHYTHM, +S1, +S2 - GI/Abdominal Exam GI & Abdominal Exam: Diminished Bowel Sounds, Soft. absent: Tenderness - Rectal Exam Rectal Exam: Deferred - Exam Exam: NORMAL INSPECTION - Extremities Exam Extremities exam: Negative for: calf tenderness, pedal edema - Back Exam Back exam: absent: CVA tenderness (L), CVA tenderness (R), paraspinal tenderness - Neurological Exam Neurological exam: Alert, CN II-XII Intact, Oriented x3, Reflexes Normal - Psychiatric Exam Psychiatric exam: Depressed, Normal Mood - Skin Skin Exam: Dry, Intact Results - Vital Signs Recent Vital Signs: Last Vital Signs Temp 97.6 F 05/07/16 08:12 Pulse 77 05/07/16 08:24 Resp 20 05/07/16 08:12 BP 102/68 05/07/16 08:24 Pulse Ox 98 05/07/16 08:12 - Labs Result Diagrams: 05/07/16 05:30 05/07/16 05:30 Labs: Laboratory Results - last 24 hr 05/06/16 05/06/16 05/06/16 10:50 17:06 22:48 WBC RBC Hgb Hct MCV MCH MCHC RDW Plt Count MPV Neut % (Auto) Lymph % (Auto) Prentiss % (Auto) Eos % (Auto) Baso % (Auto) Neut # Lymph # Prentiss # Eos # Baso # Sodium Potassium Chloride Carbon Dioxide Anion Gap BUN Creatinine Est GFR ( Amer) Est GFR (Non-Af Amer) POC Glucose (mg/dL) 189 H 251 H 202 H Random Glucose Calcium Total Bilirubin AST ALT Alkaline Phosphatase Total Protein Albumin Globulin Albumin/Globulin Ratio Triglycerides Cholesterol LDL Cholesterol Direct HDL Cholesterol TSH 3rd Generation 05/07/16 05/07/16 05:30 06:15 WBC 14.0 H RBC 5.34 Hgb 12.8 Hct 40.9 MCV 76.6 L MCH 24.0 L MCHC 31.3 L RDW 15.2 H Plt Count 239 MPV 10.0 Neut % (Auto) 69.8 Lymph % (Auto) 19.1 L Prentiss % (Auto) 9.8 Eos % (Auto) 0.7 Baso % (Auto) 0.6 Neut # 9.7 H Lymph # 2.7 Prentiss # 1.4 H Eos # 0.1 Baso # 0.1 Sodium 137 Potassium 3.5 L Chloride 96 L Carbon Dioxide 30 Anion Gap 15 BUN 17 Creatinine 0.9 Est GFR ( Amer) > 60 Est GFR (Non-Af Amer) > 60 POC Glucose (mg/dL) 201 H Random Glucose 222 H Calcium 8.5 Total Bilirubin 1.3 AST 20 ALT 33 Alkaline Phosphatase 73 Total Protein 6.3 Albumin 3.5 Globulin 2.8 Albumin/Globulin Ratio 1.2 Triglycerides 130 D Cholesterol 139 LDL Cholesterol Direct 72 HDL Cholesterol 43 TSH 3rd Generation 0.57 Assessment & Plan (1) Abdominal pain Status: Acute (2) DM2 (diabetes mellitus, type 2) Status: Acute (3) Gastroparesis due to DM Status: Acute (4) Hyperglycemia Status: Acute (5) Hypernatremia Status: Acute (6) Intractable vomiting Status: Acute (7) Diabetic foot infection Status: Acute - Assessment and Plan (Free Text) Assessment: leukocytosis - multifactorial r/o systemic infection check cultures will follow
[2016-05-07] MEDS: metroNIDAZOLE 500mg/100ml NS 100 ML IVPB SCH ×2 (11:01→17:12)
--- NOTE | 2016-05-07 11:47 | RAD ---
HISTORY: elevated wbcs COMPARISON: 02/15/2016 FINDINGS: LUNGS: No active pulmonary disease. PLEURA: No significant pleural effusion identified, no pneumothorax apparent. CARDIOVASCULAR: Normal. OSSEOUS STRUCTURES: No significant abnormalities. VISUALIZED UPPER ABDOMEN: Normal. OTHER FINDINGS: None. IMPRESSION: No active disease.
--- NOTE | 2016-05-07 14:27 | CP.PCM.PN ---
Subjective - Date & Time of Evaluation Date of Evaluation: 05/07/16 Time of Evaluation: 12:00 - Subjective Subjective: Patient seen at bedside. Had liquid diet. Nausea perists. Denies vomiting and diarrhea. Moving regular bowels. Objective - Vital Signs/Intake and Output Vital Signs (last 24 hours): Temp Pulse Resp BP Pulse Ox 97.6 F 77 20 102/68 98 05/07/16 08:12 05/07/16 08:24 05/07/16 08:12 05/07/16 08:24 05/07/16 08:12 - Medications Medications: Current Medications Atenolol (Atenolol) 100 mg PO DAILY [facility] Last Admin: 05/07/16 08:24 Dose: 100 mg Dextrose (Glutose 15) 0 gm PO ONCE PRN; Protocol PRN Reason: Hypoglycemia Protocol Dextrose (Dextrose 50% Inj) 0 ml IV STAT PRN; Protocol PRN Reason: Hyglycemia Protocol Enoxaparin Sodium (Lovenox) 40 mg SC DAILY [facility] PRN Reason: Protocol Last Admin: 05/07/16 08:25 Dose: 40 mg Famotidine (Pepcid) 20 mg IVP Q12 [facility] Last Admin: 05/07/16 08:24 Dose: 20 mg Glucagon (Glucagen Diagnostic Kit) 0 mg IM STAT PRN; Protocol PRN Reason: Hypoglycemia Protocol Hydromorphone HCl (Dilaudid) 1 mg IVP Q6 PRN PRN Reason: abdominal pain Last Admin: 05/06/16 22:07 Dose: 1 mg Metronidazole (Flagyl 500mg/100ml Ns) 100 mls @ 100 mls/hr IVPB Q8 [facility] Last Admin: 05/07/16 11:01 Dose: 100 mls/hr Piperacillin Sod/Tazobactam (Sod 2.25 gm/ Sodium Chloride) 100 mls @ 100 mls/ hr IVPB Q8 [facility] Last Admin: 05/07/16 14:07 Dose: 100 mls/hr Insulin Human Regular (Humulin R) 0 units SC ACHS [facility] PRN Reason: Protocol Last Admin: 05/07/16 12:37 Dose: 2 units Methadone HCl (Methadone) 5 mg PO Q8 [facility] Last Admin: 05/07/16 08:30 Dose: 5 mg Metoclopramide HCl (Reglan) 10 mg IVPB Q6 PRN PRN Reason: Nausea/Vomiting Last Admin: 05/07/16 14:07 Dose: 10 mg Pregabalin (Lyrica) 100 mg PO BID [facility] Last Admin: 05/07/16 08:30 Dose: 100 mg - Labs Labs: 05/07/16 05:30 05/07/16 05:30 PT 12.1 SECONDS (9.6-11.2) H 05/06/16 09:10 INR 1.16 (0.92-1.08) H 05/06/16 09:10 APTT 28.6 SECONDS (23.3-32.5) 05/06/16 09:10 - Constitutional Appears: Well, No Acute Distress - Head Exam Head Exam: ATRAUMATIC, NORMAL INSPECTION, NORMOCEPHALIC - Eye Exam Eye Exam: EOMI, Normal appearance, PERRL - ENT Exam ENT Exam: Mucous Membranes Moist, Normal Exam - Respiratory Exam Respiratory Exam: Clear to Ausculation Bilateral, NORMAL BREATHING PATTERN - Cardiovascular Exam Cardiovascular Exam: REGULAR RHYTHM, +S1, +S2. absent: Murmur - GI/Abdominal Exam GI & Abdominal Exam: Soft, Normal Bowel Sounds. absent: Tenderness - Extremities Exam Extremities Exam: Full ROM, Normal Capillary Refill, Normal Inspection. absent : Joint Swelling, Pedal Edema - Neurological Exam Neurological Exam: Alert, Awake, CN II-XII Intact, Normal Gait, Oriented x3 - Psychiatric Exam Psychiatric exam: Normal Affect, Normal Mood - Skin Skin Exam: Dry, Intact, Normal Color, Warm Assessment and Plan - Assessment and Plan (Free Text) Assessment: 55yo male with PMHx significant for DMT2, suspected gastroparesis, HTN, opioid induced constipation, diabetic foot ulcers who presented to the ED with nausea and vomiting. Had recent EGD/ colonoscopy on 04/05/16. H pylori negative gastritis -Nausea and vomiting; suspected gastroparesis -Opioid induced constipation -Diverticulosis Plan: -Zofran and reglan PRN -Advance diet as tolerated, full liquid today -Recent EGD/Colonoscopy reviewed -CT A/P reviewed, esophageal changes likely a result of frequent vomiting in setting of recent unremarkable EGD
[2016-05-07] MEDS: Insulin Lispro (humaLOG) 100 Units/ml Inj SC SCH ×3 (17:13→22:32)
--- NOTE | 2016-05-07 20:00 | PN ---
DATE: 05/07/2016 ROOM: 652. SUBJECTIVE: This is a 55-year-old male with recent uncontrolled type 2 insulin-requiring diabetes, p resenting here with intractable nausea, dyspepsia and vomiting with supervening diarrhea and is now b eing followed closely for metabolic management. He also has significant diabetic gastroparesis and h as had multiple admissions for exacerbation of the same. His oral intake is quite variable and subop timal at this time as per the nursing staff. However, he also has been using a [employer] insulin pum p and always runs out of insulin supplies related to the formidable expense of his monthly copay as n oted. His glycemic levels are fluctuating, but improved, and the latest glucose levels have ranged f rom 201-251 mg/dL. His latest chemistry showed a BUN of 17, sodium 137, potassium 3.5, chloride 96, CO2 30, glucose 222, and creatinine 0.9. So, at this time, we will actually start him now on a basal and bolus insulin regimen with a low dose combination of Levemir given as 8 units subQ at bedtime da chaparro to start tonight. We will also add Humalog given as 4 units subQ t.i.d. before meals to start at dinnertime today as ordered. We will modify the coverage scale with a low dose algorithm using Jennifer log insulin as given. We will titrate incrementally as indicated to optimize metabolic control. We will follow. Rizwana Raygoza MD cc: [id number] TT: 05/07/2016 19:59:06 Confirmation # [id number] Dictation # [id number] [email or web address]
--- NOTE | 2016-05-07 21:34 | CP.PCM.PN ---
Subjective - Date & Time of Evaluation Date of Evaluation: 05/07/16 Time of Evaluation: 22:22 - Subjective Subjective: Improving Objective - Vital Signs/Intake and Output Vital Signs (last 24 hours): Temp Pulse Resp BP Pulse Ox 97.8 F 76 20 114/79 100 05/07/16 17:36 05/07/16 17:36 05/07/16 17:36 05/07/16 17:36 05/07/16 17:36 - Medications Medications: Current Medications Atenolol (Atenolol) 100 mg PO DAILY [facility] Last Admin: 05/07/16 08:24 Dose: 100 mg Dextrose (Glutose 15) 0 gm PO ONCE PRN; Protocol PRN Reason: Hypoglycemia Protocol Dextrose (Dextrose 50% Inj) 0 ml IV STAT PRN; Protocol PRN Reason: Hyglycemia Protocol Enoxaparin Sodium (Lovenox) 40 mg SC DAILY [facility] PRN Reason: Protocol Last Admin: 05/07/16 08:25 Dose: 40 mg Famotidine (Pepcid) 20 mg IVP Q12 [facility] Last Admin: 05/07/16 21:18 Dose: 20 mg Glucagon (Glucagen Diagnostic Kit) 0 mg IM STAT PRN; Protocol PRN Reason: Hypoglycemia Protocol Hydromorphone HCl (Dilaudid) 1 mg IVP Q6 PRN PRN Reason: abdominal pain Last Admin: 05/06/16 22:07 Dose: 1 mg Metronidazole (Flagyl 500mg/100ml Ns) 100 mls @ 100 mls/hr IVPB Q8 [facility] Last Admin: 05/07/16 17:12 Dose: 100 mls/hr Piperacillin Sod/Tazobactam (Sod 2.25 gm/ Sodium Chloride) 100 mls @ 100 mls/ hr IVPB Q8 [facility] Last Admin: 05/07/16 17:30 Dose: 100 mls/hr Insulin Detemir (Levemir) 8 units SC HS [facility] Insulin Human Lispro (Humalog) 4 units SC AC [facility] Last Admin: 05/07/16 17:13 Dose: 4 unit Insulin Human Lispro (Humalog) 0 units SC ACHS [facility] PRN Reason: Protocol Last Admin: 05/07/16 17:29 Dose: Not Given Methadone HCl (Methadone) 5 mg PO Q8 [facility] Last Admin: 05/07/16 17:16 Dose: 5 mg Metoclopramide HCl (Reglan) 10 mg IVPB Q6 PRN PRN Reason: Nausea/Vomiting Last Admin: 05/07/16 21:22 Dose: 10 mg Pregabalin (Lyrica) 100 mg PO BID [facility] Last Admin: 05/07/16 17:16 Dose: 100 mg - Labs Labs: 05/07/16 05:30 05/07/16 05:30 PT 12.1 SECONDS (9.6-11.2) H 05/06/16 09:10 INR 1.16 (0.92-1.08) H 05/06/16 09:10 APTT 28.6 SECONDS (23.3-32.5) 05/06/16 09:10 - Respiratory Exam Respiratory Exam: NORMAL BREATHING PATTERN - Cardiovascular Exam Cardiovascular Exam: REGULAR RHYTHM - GI/Abdominal Exam GI & Abdominal Exam: Normal Bowel Sounds Assessment and Plan - Assessment and Plan (Free Text) Assessment: Diabetic Gastroparesis with vomiting IVF PPI Reglan GI NIIDDM IVF Endo Chronic pain Dysthymia Opiod induced constipation Elevated WBC ?? cultures ID Chronic foot ulcer ID Podiatry
[2016-05-07] MEDS ORDERED: Sucralfate 1 gm/10 ml Oral Susp UD PO ONE (22:29)
[2016-05-07] MEDS: Insulin Detemir 100 Units/ml Inj SC SCH (22:40)
[2016-05-08] MEDS: metroNIDAZOLE 500mg/100ml NS 100 ML IVPB SCH ×3 (01:09→17:44)
[2016-05-08 07:07] LABS: HEMATOCRIT 44.4 % (35.0-51.0); MEAN CELL VOLUME 77.2 fl (80.0-94.0); MEAN CORPUSCULAR HEMOGLOBIN 24.4 pg (27.0-31.0); MEAN CORPUSCULAR HGB CONC 31.6 g/dL (33.0-37.0); RED CELL DISTRIBUTION WIDTH 14.9 % (11.5-14.5); WHITE BLOOD COUNT 9.6 K/uL (4.8-10.8)
[2016-05-08 07:12] LABS: BLOOD UREA NITROGEN 19 mg/dl (9-20); CALCIUM 8.8 mg/dL (8.4-10.2); CARBON DIOXIDE 27 mmol/L (22-30); CHLORIDE 100 mmol/L (98-107); GFR AFRICAN-AMERICAN > 60; GLUCOSE,RANDOM 162 mg/dL (75-110); POTASSIUM 3.5 MMOL/L (3.6-5.0); SODIUM 136 mmol/l (132-148)
[2016-05-08] MEDS: Insulin Lispro (humaLOG) 100 Units/ml Inj SC SCH ×7 (07:21→21:42)
[2016-05-08] MEDS: Enoxaparin 40 mg Syringe SC SCH (08:48)
[2016-05-08] MEDS: ATENOLOL 100 MG TAB PO SCH (09:00)
[2016-05-08] MEDS ORDERED: Sucralfate 1 gm/10 ml Oral Susp UD PO SCH (09:45)
[2016-05-08] MEDS ORDERED: Potassium Chloride 20 mEq ER Tab PO ONE (12:00)
[2016-05-08] MEDS: Sucralfate 1 gm/10 ml Oral Susp UD PO SCH ×3 (12:17→21:26)
--- NOTE | 2016-05-08 15:23 | CP.PCM.PN ---
Subjective - Date & Time of Evaluation Date of Evaluation: 05/08/16 Time of Evaluation: 15:18 - Subjective Subjective: RFV: Gastroparesis S: No acute events. Tolerating liquids. Complains of abdominal pressure in the upper area. Requesting carafate. Objective - Vital Signs/Intake and Output Vital Signs (last 24 hours): Temp Pulse Resp BP Pulse Ox 98.4 F 72 20 126/82 99 05/08/16 07:52 05/08/16 07:52 05/08/16 07:52 05/08/16 07:52 05/08/16 07:52 - Medications Medications: Current Medications Atenolol (Atenolol) 100 mg PO DAILY [facility] Last Admin: 05/07/16 08:24 Dose: 100 mg Dextrose (Glutose 15) 0 gm PO ONCE PRN; Protocol PRN Reason: Hypoglycemia Protocol Dextrose (Dextrose 50% Inj) 0 ml IV STAT PRN; Protocol PRN Reason: Hyglycemia Protocol Enoxaparin Sodium (Lovenox) 40 mg SC DAILY [facility] PRN Reason: Protocol Last Admin: 05/08/16 08:48 Dose: 40 mg Famotidine (Pepcid) 20 mg IVP Q12 [facility] Last Admin: 05/08/16 08:57 Dose: 20 mg Glucagon (Glucagen Diagnostic Kit) 0 mg IM STAT PRN; Protocol PRN Reason: Hypoglycemia Protocol Hydromorphone HCl (Dilaudid) 1 mg IVP Q6 PRN PRN Reason: abdominal pain Last Admin: 05/06/16 22:07 Dose: 1 mg Metronidazole (Flagyl 500mg/100ml Ns) 100 mls @ 100 mls/hr IVPB Q8 [facility] Last Admin: 05/08/16 08:45 Dose: 100 mls/hr Piperacillin Sod/Tazobactam (Sod 2.25 gm/ Sodium Chloride) 100 mls @ 100 mls/ hr IVPB Q8 [facility] Last Admin: 05/08/16 00:09 Dose: 100 mls/hr Insulin Detemir (Levemir) 8 units SC HS [facility] Last Admin: 05/07/16 22:40 Dose: 8 units Insulin Human Lispro (Humalog) 4 units SC AC [facility] Last Admin: 05/08/16 12:19 Dose: 4 unit Insulin Human Lispro (Humalog) 0 units SC ACHS [facility] PRN Reason: Protocol Last Admin: 05/08/16 12:21 Dose: Not Given Methadone HCl (Methadone) 5 mg PO Q8 [facility] Last Admin: 05/08/16 08:51 Dose: 5 mg Metoclopramide HCl (Reglan) 10 mg IVPB Q6 PRN PRN Reason: Nausea/Vomiting Last Admin: 05/07/16 21:22 Dose: 10 mg Pregabalin (Lyrica) 100 mg PO BID [facility] Last Admin: 05/08/16 08:51 Dose: 100 mg Sucralfate (Carafate Oral Susp) 1 gm PO QID [facility] Last Admin: 05/08/16 12:17 Dose: 1 gm - Labs Labs: 05/08/16 05:30 05/08/16 05:30 PT 12.1 SECONDS (9.6-11.2) H 05/06/16 09:10 INR 1.16 (0.92-1.08) H 05/06/16 09:10 APTT 28.6 SECONDS (23.3-32.5) 05/06/16 09:10 - Constitutional Appears: No Acute Distress, Chronically Ill - Head Exam Head Exam: ATRAUMATIC, NORMOCEPHALIC - Eye Exam Eye Exam: Normal appearance - ENT Exam ENT Exam: Mucous Membranes Moist, Normal Oropharynx - Respiratory Exam Respiratory Exam: NORMAL BREATHING PATTERN. absent: Respiratory Distress - Cardiovascular Exam Cardiovascular Exam: +S1, +S2 - GI/Abdominal Exam GI & Abdominal Exam: Soft. absent: Distended, Tenderness - Neurological Exam Neurological Exam: Alert, Oriented x3 Assessment and Plan - Assessment and Plan (Free Text) Assessment: 55 year old male with h/o DM, suspected gastroparesis, HTN, opioid induced constipation, diabetic foot ulcers, on methadone who presented to the ED with nausea and vomiting. Had recent EGD/ colonoscopy on 04/05/16. H pylori negative gastritis 1. Gastroparesis 2. Opiod induced constipation 3. Diverticulosis 4. Gastritis Plan: -advance diet as tolerated -minimize narcotics -tight glycemic control -bowel regimen with miralax 17 g bid -IV hydration/electrolyte replacement -s/p recent EGD/colonoscopy -s/p CT without obstruction -recommend reglan prn nausea/vomiting -recommend protonix 40 mg daily -recommend carafate 1 g oral solution po qid -supportive care -discharge when tolerating diet -will sign off at this time
--- NOTE | 2016-05-08 16:05 | PN ---
DATE: 05/08/2016 ROOM: 652 This is a 55-year-old male with recent uncontrolled type 2 insulin-requiring diabetes, now being foll owed closely for metabolic management. He was actually using a [employer] insulin pump giving him con tinuous basal and bolus insulin regimen, but apparently ran out of supplies as noted thereof. He was admitted here with intractable nausea, dyspepsia, and vomiting, and supervening loose watery diarrhe a with underlying significant history of diabetic gastroparesis. His latest chemistry showed a BUN of 19, sodium 136, potassium 3.5, chloride 100, CO2 27, glucose 162 and creatinine 0.9. His glucose values have ranged from 138-229 mg/dL. So at this time, we will continue the same basal and bolus insulin regimen as the patient is quite ad amant and barely eats with very nil and suboptimal meal portions as per the nursing staff. So to all ow for dose equilibration, we will keep him on the low dose basal and bolus insulin regimen as given. We will continue the Levemir given as 8 units subQ at bedtime daily as ordered. We will also sidney nue the Humalog given as 4 units subQ t.i.d. before meals as given. We will titrate incrementally as indicated to optimize metabolic control. We will continue the low-dose correction scale using Humal og insulin as given. We will follow and advise accordingly. Rizwana Raygoza MD cc: [id number] TT: 05/08/2016 16:04:28 Confirmation # [id number] Dictation # [id number]
[2016-05-08] MEDS: POLYETHYLENE GLYCOL 3350 17 GM/Dose PACKET PO SCH (17:46)
--- NOTE | 2016-05-08 20:07 | CP.PCM.PN ---
Subjective - Date & Time of Evaluation Date of Evaluation: 05/08/16 Time of Evaluation: 22:22 - Subjective Subjective: GI note appreciated Tolerating liquids Objective - Vital Signs/Intake and Output Vital Signs (last 24 hours): Temp Pulse Resp BP Pulse Ox 99.2 F 82 18 113/78 97 05/08/16 16:53 05/08/16 16:53 05/08/16 16:53 05/08/16 16:53 05/08/16 16:53 - Medications Medications: Current Medications Atenolol (Atenolol) 100 mg PO DAILY [facility] Last Admin: 05/08/16 09:00 Dose: 100 mg Dextrose (Glutose 15) 0 gm PO ONCE PRN; Protocol PRN Reason: Hypoglycemia Protocol Dextrose (Dextrose 50% Inj) 0 ml IV STAT PRN; Protocol PRN Reason: Hyglycemia Protocol Enoxaparin Sodium (Lovenox) 40 mg SC DAILY [facility] PRN Reason: Protocol Last Admin: 05/08/16 08:48 Dose: 40 mg Famotidine (Pepcid) 20 mg IVP Q12 [facility] Last Admin: 05/08/16 08:57 Dose: 20 mg Glucagon (Glucagen Diagnostic Kit) 0 mg IM STAT PRN; Protocol PRN Reason: Hypoglycemia Protocol Hydromorphone HCl (Dilaudid) 1 mg IVP Q6 PRN PRN Reason: abdominal pain Last Admin: 05/06/16 22:07 Dose: 1 mg Metronidazole (Flagyl 500mg/100ml Ns) 100 mls @ 100 mls/hr IVPB Q8 [facility] Last Admin: 05/08/16 17:44 Dose: 100 mls/hr Piperacillin Sod/Tazobactam (Sod 2.25 gm/ Sodium Chloride) 100 mls @ 100 mls/ hr IVPB Q8 [facility] Last Admin: 05/08/16 00:09 Dose: 100 mls/hr Insulin Detemir (Levemir) 8 units SC HS [facility] Last Admin: 05/07/16 22:40 Dose: 8 units Insulin Human Lispro (Humalog) 4 units SC AC [facility] Last Admin: 05/08/16 17:34 Dose: 4 unit Insulin Human Lispro (Humalog) 0 units SC ACHS [facility] PRN Reason: Protocol Last Admin: 05/08/16 17:35 Dose: Not Given Methadone HCl (Methadone) 5 mg PO Q8 [facility] Last Admin: 05/08/16 17:42 Dose: 5 mg Metoclopramide HCl (Reglan) 10 mg IVPB Q6 PRN PRN Reason: Nausea/Vomiting Last Admin: 05/07/16 21:22 Dose: 10 mg Pantoprazole Sodium (Protonix Ec Tab) 40 mg PO DAILY [facility] Polyethylene Glycol (Miralax) 17 gm PO BID [facility] Last Admin: 05/08/16 17:46 Dose: Not Given Pregabalin (Lyrica) 100 mg PO BID [facility] Last Admin: 05/08/16 17:42 Dose: 100 mg Sucralfate (Carafate Oral Susp) 1 gm PO QID [facility] Last Admin: 05/08/16 17:32 Dose: 1 gm - Labs Labs: 05/08/16 05:30 05/08/16 05:30 PT 12.1 SECONDS (9.6-11.2) H 05/06/16 09:10 INR 1.16 (0.92-1.08) H 05/06/16 09:10 APTT 28.6 SECONDS (23.3-32.5) 05/06/16 09:10 - Respiratory Exam Respiratory Exam: NORMAL BREATHING PATTERN - Cardiovascular Exam Cardiovascular Exam: REGULAR RHYTHM - GI/Abdominal Exam GI & Abdominal Exam: Normal Bowel Sounds Assessment and Plan - Assessment and Plan (Free Text) Assessment: Diabetic Gastroparesis with vomiting IVF PPI Reglan carafate GI note appreciated Hypokalemia K+ suppl repeat lab in AM NIIDDM IVF Endo Chronic pain Dysthymia Opiod induced constipation Elevated WBC ?? cultures ID Zosyn Flagyl Chronic foot ulcer ID Podiatry
[2016-05-08 21:13] VITALS: RESP 20
[2016-05-08] MEDS: Insulin Detemir 100 Units/ml Inj SC SCH (22:19)
[2016-05-09] MEDS: metroNIDAZOLE 500mg/100ml NS 100 ML IVPB SCH ×3 (01:08→17:07)
[2016-05-09 07:16] LABS: BLOOD UREA NITROGEN 23 mg/dl (9-20); CALCIUM 8.4 mg/dL (8.4-10.2); CARBON DIOXIDE 25 mmol/L (22-30); CHLORIDE 101 mmol/L (98-107); GFR AFRICAN-AMERICAN > 60; GLUCOSE,RANDOM 170 mg/dL (75-110); POTASSIUM 3.6 MMOL/L (3.6-5.0); SODIUM 134 mmol/l (132-148)
[2016-05-09 07:50] LABS: HEMATOCRIT 42.8 % (35.0-51.0); MEAN CELL VOLUME 77.1 fl (80.0-94.0); MEAN CORPUSCULAR HEMOGLOBIN 24.5 pg (27.0-31.0); MEAN CORPUSCULAR HGB CONC 31.8 g/dL (33.0-37.0); RED CELL DISTRIBUTION WIDTH 15.1 % (11.5-14.5)
[2016-05-09 08:33] VITALS: BP 113/74; PULSE 88; TEMP 98.1; O2SAT 100
[2016-05-09] MEDS: ATENOLOL 100 MG TAB PO SCH (08:38)
[2016-05-09] MEDS: Sucralfate 1 gm/10 ml Oral Susp UD PO SCH ×3 (08:38→17:02)
[2016-05-09] MEDS: Insulin Lispro (humaLOG) 100 Units/ml Inj SC SCH ×5 (08:39→17:00)
[2016-05-09] MEDS: POLYETHYLENE GLYCOL 3350 17 GM/Dose PACKET PO SCH ×3 (08:41→17:07)
[2016-05-09] MEDS: Enoxaparin 40 mg Syringe SC SCH (08:41)
[2016-05-09] MEDS ORDERED: Pantoprazole 40 mg EC Tab PO SCH (09:00)
--- NOTE | 2016-05-09 09:24 | CP.PCM.CON ---
History of Present Illness - History of Present Illness History of Present Illness: 55 year old male with pmhx of DM, HTN, bronchitis, seen at bedside this morning after request for podiatry consultation concerning elongated toe nails. Patient was resting comfortably in bed AAO x 3. Patient states that he cannot see because of blurry vision, but he feels like the toenails are growing too long. He also mentions that his feet are very dry. He denies of any pain to bilateral feet. No other pedal complaints. Patient denies of any N/V/F/C or SOB today. Past Patient History - Past Medical History & Family History Past Medical History?: Yes - Past Social History Smoking Status: Never Smoked - CARDIAC Hx Cardiac Disorders: Yes Hx Hypertension: Yes - PULMONARY Hx Respiratory Disorders: Yes Hx Bronchitis: Yes Hx Pneumonia: Yes - NEUROLOGICAL Hx Neurological Disorder: Yes (Neuropathy) - HEENT Hx HEENT Problems: No - RENAL Hx Chronic Kidney Disease: No - ENDOCRINE/METABOLIC Hx Endocrine Disorders: Yes Hx Diabetes Mellitus Type 2: Yes - HEMATOLOGICAL/ONCOLOGICAL Hx Blood Disorders: No Hx Human Immunodeficiency Virus (HIV): No - INTEGUMENTARY Hx Dermatological Problems: No Other/Comment: Diabetic ulcer left foot - MUSCULOSKELETAL/RHEUMATOLOGICAL Hx Musculoskeletal Disorders: No Hx Falls: No - GASTROINTESTINAL Hx Gastrointestinal Disorders: Yes Other/Comment: gastroparesis - GENITOURINARY/GYNECOLOGICAL Hx Genitourinary Disorders: No - PSYCHIATRIC Hx Substance Use: No - SURGICAL HISTORY Hx Surgeries: Yes Hx Tonsillectomy: Yes - ANESTHESIA Hx Anesthesia: Yes Hx Anesthesia Reactions: No Hx Malignant Hyperthermia: No Has any member of the family had a problem w/ anesthesia?: No Meds Allergies/Adverse Reactions: Allergies Allergy/AdvReac Type Severity Reaction Status Date / Time iodine Allergy RASH Verified 05/05/16 17:58 shellfish derived Allergy RASH Verified 05/05/16 17:58 - Medications Medications: Current Medications Atenolol (Atenolol) 100 mg PO DAILY [facility] Last Admin: 05/09/16 08:38 Dose: 100 mg Dextrose (Glutose 15) 0 gm PO ONCE PRN; Protocol PRN Reason: Hypoglycemia Protocol Dextrose (Dextrose 50% Inj) 0 ml IV STAT PRN; Protocol PRN Reason: Hyglycemia Protocol Enoxaparin Sodium (Lovenox) 40 mg SC DAILY [facility] PRN Reason: Protocol Last Admin: 05/09/16 08:41 Dose: 40 mg Famotidine (Pepcid) 20 mg IVP Q12 [facility] Last Admin: 05/09/16 08:42 Dose: 20 mg Glucagon (Glucagen Diagnostic Kit) 0 mg IM STAT PRN; Protocol PRN Reason: Hypoglycemia Protocol Hydromorphone HCl (Dilaudid) 1 mg IVP Q6 PRN PRN Reason: abdominal pain Last Admin: 05/06/16 22:07 Dose: 1 mg Metronidazole (Flagyl 500mg/100ml Ns) 100 mls @ 100 mls/hr IVPB Q8 [facility] Last Admin: 05/09/16 08:38 Dose: 100 mls/hr Piperacillin Sod/Tazobactam (Sod 2.25 gm/ Sodium Chloride) 100 mls @ 100 mls/ hr IVPB Q8 [facility] Last Admin: 05/09/16 08:43 Dose: 100 mls/hr Insulin Detemir (Levemir) 8 units SC HS [facility] Last Admin: 05/08/16 22:19 Dose: 8 units Insulin Human Lispro (Humalog) 4 units SC AC [facility] Last Admin: 05/09/16 08:39 Dose: 4 unit Insulin Human Lispro (Humalog) 0 units SC ACHS [facility] PRN Reason: Protocol Last Admin: 05/09/16 08:41 Dose: Not Given Methadone HCl (Methadone) 5 mg PO Q8 [facility] Last Admin: 05/09/16 08:41 Dose: 5 mg Metoclopramide HCl (Reglan) 10 mg IVPB Q6 PRN PRN Reason: Nausea/Vomiting Last Admin: 05/09/16 08:52 Dose: 10 mg Pantoprazole Sodium (Protonix Ec Tab) 40 mg PO DAILY [facility] Last Admin: 05/09/16 08:42 Dose: 40 mg Polyethylene Glycol (Miralax) 17 gm PO BID [facility] Last Admin: 05/09/16 08:57 Dose: Not Given Pregabalin (Lyrica) 100 mg PO BID [facility] Last Admin: 05/09/16 08:41 Dose: 100 mg Sucralfate (Carafate Oral Susp) 1 gm PO QID [facility] Last Admin: 05/09/16 08:38 Dose: 1 gm Physical Exam - Constitutional Appears: Well, Non-toxic, No Acute Distress - Extremities Exam Additional comments: Vasc: DP pulses present 2/4 b/l, PT present 1/4 b/l. CFT < 3 seconds to all digits b/l. Skin temperature warm to warm from proximal to distal b/l. Ortho: No pain on palpation noted. Neuro: Gross sensation diminished b/l. Derm: No open wound is noted. No drainage. No erythema. No mal-odor. No sign of infection is noted. Elongated dystrophic toenails noted to digit x10 Left foot dorsum reveals some areas of hyperkeratotic scabs where used be open ulcerations. No open ulcer is present now but scabs are thick and fragile. - Neurological Exam Neurological exam: Alert, Oriented x3 - Psychiatric Exam Psychiatric exam: Normal Affect, Normal Mood - Skin Skin Exam: Normal Color, Warm Results - Vital Signs Recent Vital Signs: Last Vital Signs Temp 98.1 F 05/09/16 08:33 Pulse 88 05/09/16 08:38 Resp 20 05/09/16 08:33 BP 113/74 05/09/16 08:38 Pulse Ox 100 05/09/16 08:33 - Labs Result Diagrams: 05/09/16 05:40 05/09/16 05:40 Labs: Laboratory Results - last 24 hr 05/08/16 05/08/16 05/08/16 10:51 16:37 21:41 WBC RBC Hgb Hct MCV MCH MCHC RDW Plt Count Sodium Potassium Chloride Carbon Dioxide Anion Gap BUN Creatinine Est GFR ( Amer) Est GFR (Non-Af Amer) POC Glucose (mg/dL) 229 H 227 H 201 H Random Glucose Calcium 05/09/16 05/09/16 05:28 05:40 WBC 9.0 RBC 5.55 Hgb 13.6 Hct 42.8 MCV 77.1 L MCH 24.5 L MCHC 31.8 L RDW 15.1 H Plt Count 238 Sodium 134 Potassium 3.6 Chloride 101 Carbon Dioxide 25 Anion Gap 11 BUN 23 H Creatinine 1.0 Est GFR ( Amer) > 60 Est GFR (Non-Af Amer) > 60 POC Glucose (mg/dL) 180 H Random Glucose 170 H Calcium 8.4 Assessment & Plan - Assessment and Plan (Free Text) Assessment: 55 year old male with diabetic neuropathy presents with elongated toenails x10 Plan: Patient examined and evaluated, discussed in detail with attending, Dr. Garcia Chart and vitals reviewed. Elongated dystrophic toenails were sharply cut with a sterile large nail nipper up to level of normal length without any incident Ordered Lac hydrin topical No dressing is needed. Podiatry will follow in house
--- NOTE | 2016-05-09 10:44 | PQF GENQUE ---
Dr. Young, Is there an associated diagnosis to go along with the following clinical lab finding?: 05/06 @10:22:urine culture:final report: Enterococcus Faecalis 05/07: urine culture clean catch: final report: negative OR: Disagree OR: Other explanation of clinical findings 05/08: attending note: Elevated WBC ?cultures; ID; Zosyn Flagyl 05/07: ID consult:DM foot infection, leukocytosis: multifactorial; R/O systemic infection, check cultures will follow 05/06:piperacillin started @23:32 05/07: flagyl started WBC:13.9->20.2->14.0->9.6 left shift pulse:116->107->106-.109->109 This form is a permanent part of the medical record leukocytosis uti symptoms- cultures are often negative when pt has been on antibiotics , pt is symptomatic Clarification of your documentation is requested to better reflect the severity of illness and intensity of treatment of your patient. Indicators present [] Specify: [] [] Specify: [] [] Specify: [] [] Specify: [] Location in the medical record that reflects the above clinical findings: [] Treatment Provided: [] PHYSICIAN'S RESPONSE Based on your medical judgment of the clinical indicators outlined above please clarify the following: [] Practitioner response [] If unable to determine, please check the box, sign and date. Present On Admission (POA) Indicator: [] Present at the time of admission [] Not present at the time of admission [] Clinically Undetermined In responding to this query, please exercise your independent professional judgment. The fact that a question is asked does not imply that any particular answer is desired or expected. Thank you for your clarification on this documentation. If you have any questions please call:[ ] * Thank you, Joyce Ferrer RN BSN ext. #[phone] MTDD
--- NOTE | 2016-05-09 14:36 | CP.PCM.PCO ---
Assessment/Plan - Assessment/Plan Assessment (Free Text): Pt stable, tolerating small meals, although states he cannot eat a full meal yet. States he still has a little nausea but no vomitting, reglan helping. Pt cleared by GI and all consultants for d/c. Per Dr. Young, pt to continue taking Augmentin as per med rec, Rx given. Per Dr. Raygoza, pt to resume humalog 8 units tid AC and Levemir 8 units q HS. Pt states he has humalog at home, Rx given for Levemir flex pen. Pt reminded to call [employer] to order supplies for his insulin pump. Pt states he has Nexium and Carafate at home, Rx given for Reglan. Pt made aware to f/u with Dr. Hay and Dr. Mac next week - Problems Patient Problems: Problem List (Active/Current) Problem Status Priority Diagnosed Code Abdominal pain Acute R10.9 DM2 (diabetes mellitus, type 2) Acute E11.9 Diabetic foot infection Acute E11.69 Gastroparesis due to DM Acute E11.43 Hyperglycemia Acute R73.9 Hypernatremia Acute E87.0 Intractable vomiting Acute R11.10
--- NOTE | 2016-05-09 16:20 | PN ---
DATE: 05/09/2016 ROOM: 652 This is a 55-year-old male with recent uncontrolled type 2 insulin-requiring diabetes, presenting her e with acute exacerbation of diabetic gastroparesis and is now being followed closely for metabolic m anagement. His oral intake remains suboptimal and variable at this time with persistent dyspepsia as noted. His glucose values are fluctuating, but improved, and today's glucose levels have ranged fro m 180-214 mg/dL. His latest chemistries include a BUN of 23, sodium 134, potassium 3.6, chloride 101 , CO2 of 25, glucose 170 and creatinine 1.0. So, at this time, we will modify his basal and bolus insulin regimen and increase the Levemir to 12 u nits subQ at bedtime daily to start tonight. We will also continue the low-dose correction scale usi ng Humalog insulin as given. We will also increase the Humalog to 6 units subQ t.i.d. before meals a s given. This will also be started at dinnertime today as ordered. We will titrate incrementally as indicated to optimize metabolic control. He is cleared for eventual discharge today as discussed wi th the nurse practitioner accordingly. He will follow up with his medical doctor for outpatient meta bolic and diabetic management. He has been advised also to call the [employer] insulin pump company t o resend his diabetic supplies so he can resume his outpatient use of the [employer] insulin pump. We will follow. Rizwana Raygoza MD cc: [phone] TT: 05/09/2016 16:19:42 Confirmation # [id number] Dictation # [id number]
[2016-05-09] MEDS ORDERED: Insulin Lispro (humaLOG) 100 Units/ml Inj SC SCH (16:30)
--- NOTE | 2016-05-09 20:48 | CP.PCM.PN ---
Subjective - Date & Time of Evaluation Date of Evaluation: 05/09/16 Time of Evaluation: 22:22 - Subjective Subjective: Above noted Objective - Vital Signs/Intake and Output Vital Signs (last 24 hours): Temp Pulse Resp BP Pulse Ox 98.1 F 88 20 113/74 100 05/09/16 08:33 05/09/16 08:38 05/09/16 08:33 05/09/16 08:38 05/09/16 08:33 - Labs Labs: 05/09/16 05:40 05/09/16 05:40 PT 12.1 SECONDS (9.6-11.2) H 05/06/16 09:10 INR 1.16 (0.92-1.08) H 05/06/16 09:10 APTT 28.6 SECONDS (23.3-32.5) 05/06/16 09:10 - Respiratory Exam Respiratory Exam: NORMAL BREATHING PATTERN - Cardiovascular Exam Cardiovascular Exam: REGULAR RHYTHM - GI/Abdominal Exam GI & Abdominal Exam: Normal Bowel Sounds Assessment and Plan - Assessment and Plan (Free Text) Assessment: Diabetic Gastroparesis with vomiting IVF PPI Reglan carafate GI note appreciated Hypokalemia K+ suppl repeat lab 3.6 NIIDDM IVF Endo Chronic pain Dysthymia Opiod induced constipation Elevated WBC ?? cultures ID Peter Flagyl Chronic foot ulcer ID Podiatry
[2016-05-09] MEDS ORDERED: Insulin Detemir 100 Units/ml Inj SC SCH (22:00)
== END 2016-05-09 20:38 | disposition home or self-care (01) | DRG 74 ==
LOC: H.ER 17:54 → H.ERHOLD 21:22 → H.MEDSURG1 05-06 03:03
PROVIDERS: ADMIT Family Medicine Geriatric Medicine; ATTEND Family Medicine Geriatric Medicine
DX: E11.43 Type 2 diabetes mellitus with diabetic autonomic (poly)neuropathy (principal); E87.0 Hyperosmolality and hypernatremia; E11.21 Type 2 diabetes mellitus with diabetic nephropathy; N39.0 Urinary tract infection, site not specified; E11.51 Type 2 diabetes mellitus with diabetic peripheral angiopathy without gangrene; E11.621 Type 2 diabetes mellitus with foot ulcer; E11.65 Type 2 diabetes mellitus with hyperglycemia; K31.84 Gastroparesis; Z79.4 Long term (current) use of insulin; Z96.41 Presence of insulin pump (external) (internal); E87.6 Hypokalemia; F34.1 Dysthymic disorder; G89.29 Other chronic pain; I10 Essential (primary) hypertension; K29.70 Gastritis, unspecified, without bleeding; K57.30 Diverticulosis of large intestine without perforation or abscess without bleeding; K59.03 Drug induced constipation; T40.2X5A Adverse effect of other opioids, initial encounter; E86.0 Dehydration; L97.529 Non-pressure chronic ulcer of other part of left foot with unspecified severity; E11.319 Type 2 diabetes mellitus with unspecified diabetic retinopathy without macular edema; L60.3 Nail dystrophy; Z91.041 Radiographic dye allergy status; Z91.013 Allergy to seafood

== ENCOUNTER 2016-09-09 12:02 | Inpatient (IN) | payer MEDICARE, BC ==
[2016-09-09 12:02] VITALS: BMI 23.9
[2016-09-09] MEDS ORDERED: Sodium Chloride 0.9% 1,000 ML IV STA ×2 (12:49→15:55)
[2016-09-09 13:55] LABS: BASO % 0.1 % (0.0-2.0); HEMOGLOBIN 15.1 g/dL (12.0-18.0); LYMPH % 5.7 % (20.0-40.0); MEAN CELL VOLUME 75.5 fl (80.0-94.0); MEAN CORPUSCULAR HEMOGLOBIN 24.6 pg (27.0-31.0); MEAN CORPUSCULAR HGB CONC 32.5 g/dL (33.0-37.0); MEAN PLATELET VOLUME 9.7 fl (7.2-11.7); MONO # 1.5 K/uL (0.0-0.8); MONO % 8.4 % (0.0-10.0); NEUT # 15.1 K/uL (1.8-7.0); NEUT % 85.8 % (50.0-75.0); NRBC % 0.1 % (0.0-0.0); PLATELET COUNT 333 K/uL (130-400); RBC 6.14 Mil/uL (4.40-5.90); RED CELL DISTRIBUTION WIDTH 15.2 % (11.5-14.5); WHITE BLOOD COUNT 17.6 K/uL (4.8-10.8)
[2016-09-09 14:03] LABS: ALB/GLOB RATIO 1.3 (1.0-2.1); ALBUMIN 5.1 g/dL (3.5-5.0); ALT/SGPT 16 U/L (21-72); AST/SGOT 32 U/L (17-59); BLOOD UREA NITROGEN 25 mg/dl (9-20); CALCIUM 10.1 mg/dL (8.4-10.2); GFR AFRICAN-AMERICAN > 60; GFR NON-AFRICAN AMERICAN > 60; LIPASE 59 U/L (23-300)
[2016-09-09 14:38] LABS: ANISOCYTOSIS SLIGHT; LYMPHOCYTE 7 % (20-50); MONOCYTE 8 % (0-10); NEUTROPHIL 85 % (42-75); PLATELET ESTIMATE NORMAL (NORMAL); TOTAL CELLS COUNTED 100
[2016-09-09] MEDS ORDERED: Iohexol 240 (50 ml) PO ONE (15:54)
[2016-09-09] MEDS ORDERED: Barium Sulfate Susp 2.1% w/v, 2.0% w/w 450 mL Bottle PO ONE ×3 (16:04→16:05)
--- NOTE | 2016-09-09 17:56 | ED PDOC ---
HPI:Nausea, Vomiting, Diarrhea Time Seen by Provider: 09/09/16 12:16 Chief Complaint (Nursing): GI Problem Chief Complaint (Provider): N/V x 3 days Past Medical History Vital Signs: Last Vital Signs Temp 98.2 F 09/09/16 12:09 Pulse 112 H 09/09/16 12:09 Resp 17 09/09/16 12:09 BP 164/108 H 09/09/16 12:09 Pulse Ox 100 09/09/16 12:09 - Medical History PMH: Bronchitis, Diabetes (type I, insulin pump), HTN, Pneumonia Denies: CAD, HIV, Chronic Kidney Disease - Surgical History Surgical History: Tonsillectomy - Family History Family History: States: Diabetes (grandparents), Hypertension (grandparents) - Home Medications Home Medications: Ambulatory Orders Medication Instructions Recorded HYDROmorphone [Dilaudid] 4 mg PO Q6H PRN 08/25/15 Methadone 15 mg PO BID 08/25/15 Pregabalin [Lyrica] 100 mg PO BID 08/25/15 Atenolol [Tenormin] 100 mg PO DAILY 01/05/16 Amoxicillin/Clavulanate [Augmentin 1 tab PO BID #14 tab 05/09/16 875 MG-125 MG] Esomeprazole Magnesium [Nexium] 40 mg PO DAILY #30 ecc 05/09/16 Insulin Detemir [Levemir] 12 units SC HS #1 vial 05/09/16 Insulin Lispro [Humalog (Insulin 8 unit SQ AC #1 cartridge 05/09/16 Lispro)] Metoclopramide [Reglan] 10 mg PO Q6 PRN #30 tab 05/09/16 Sucralfate [Carafate Oral Susp] 1 gm PO QID #20 udc 05/09/16 - Allergies Allergies/Adverse Reactions: Allergies Allergy/AdvReac Type Severity Reaction Status Date / Time iodine Allergy RASH Verified 09/09/16 12:09 shellfish derived Allergy RASH Verified 09/09/16 12:09 - Laboratory Results Result Diagrams: 09/09/16 13:25 09/09/16 13:25 - ECG O2 Sat by Pulse Oximetry: 100 Medical Decision Making Medical Decision Makin - Pt sleeping in room. NAD.
--- NOTE | 2016-09-09 19:45 | CT ---
EXAM: CT Abdomen and Pelvis Without Intravenous Contrast CLINICAL HISTORY: 55 years old, male; Pain; Abdominal pain; Generalized; Additional info: Abdominal pain, n/v, elevated wbc TECHNIQUE: Axial computed tomography images of the abdomen and pelvis without intravenous contrast. This CT exam was performed using one or more of the following dose reduction techniques: automated exposure control, adjustment of the mA and/or kV according to patient size, and/or use of iterative reconstruction technique. Coronal and sagittal reformatted images were created and reviewed. EXAM DATE/TIME: 09/09/2016 5:55 PM COMPARISON: CT - ABD PELVIS PO CONTRAST ONLY 05/05/2016 11:26:11 PM FINDINGS: Lower thorax: Heart size is normal. There is a hiatal hernia. Distal esophagus is difficult to evaluate. There may be distal esophageal wall thickening. There is minimal atelectasis and scarring at the lung bases. ABDOMEN: Liver: unremarkable Gallbladder and bile ducts: unremarkable Pancreas: Pancreas is mildly atrophic. Spleen: unremarkable Adrenals: There is bilateral adrenal thickening. Kidneys and ureters: There is a nonobstructing left renal stone. There is mild nonspecific perinephric stranding, unchanged. Kidneys and ureters are otherwise unremarkable. Stomach and bowel: Stomach is incompletely distended. Rotation is normal. Small bowel is mildly distended with fluid and air. There is no obstruction.Appendix and terminal ileum are unremarkable.Colon is incompletely distended which limits evaluation. There is scattered diverticulosis Appendix: See stomach and bowel PELVIS: Bladder: Bladder is incompletely distended. There is bladder wall thickening. Reproductive: Seminal vesicles and prostate are unremarkable. There are calcifications in the vas deferens. ABDOMEN and PELVIS: Intraperitoneal space: There is no free air or free fluid. Bones/joints: There is a large Schmorl's node at L2 with compression deformity, unchanged. There are degenerative changes in the osseus structures. Soft tissues: There is a fat containing right inguinal hernia. Vasculature: There are vascular calcifications. Lymph nodes: There is shotty adenopathy. IMPRESSION: Distal esophageal wall thickening, infectious/inflammatory versus neoplastic; no acute solid visceral or bowel abnormality, no CT findings of appendicitis or diverticulitis; bladder wall thickening, underdistention versus true thickening Additional findings as described above.
--- NOTE | 2016-09-09 21:32 | CP.PCM.PN ---
Subjective - Date & Time of Evaluation Date of Evaluation: 09/09/16 Time of Evaluation: 22:22 - Subjective Subjective: Patient is a 55yo male with Hx significant for DM, gastroparesis, HTN, opioid induced constipation, diabetic foot ulcers who presented with nausea and vomiting. Objective - Vital Signs/Intake and Output Vital Signs (last 24 hours): Temp Pulse Resp BP Pulse Ox 98.2 F 112 H 17 164/108 H 100 09/09/16 12:09 09/09/16 12:09/09/16 12:09/09/16 12:09/09/16 17:56 - Respiratory Exam Respiratory Exam: Wheezes - Cardiovascular Exam Cardiovascular Exam: Tachycardia - GI/Abdominal Exam GI & Abdominal Exam: Normal Bowel Sounds Assessment and Plan - Assessment and Plan (Free Text) Assessment: DM, gastroparesis, opioid induced constipation Elevated WBC Ct scan ordered D/W GI and Endo
[2016-09-10] MEDS ORDERED: Sodium Chloride 0.9% 1,000 ML IV SCH (00:15)
[2016-09-10] MEDS: Sodium Chloride 0.45% 1,000 ML IV SCH ×2 (01:12→16:27)
[2016-09-10] MEDS ORDERED: INSULIN LISPRO SC SCH (07:30)
[2016-09-10 07:49] LABS: BASO % 0.1 % (0.0-2.0); HEMOGLOBIN 13.3 g/dL (12.0-18.0); LYMPH # 1.7 K/uL (1.0-4.3); LYMPH % 7.1 % (20.0-40.0); MEAN CELL VOLUME 75.6 fl (80.0-94.0); MEAN CORPUSCULAR HEMOGLOBIN 24.2 pg (27.0-31.0); MEAN PLATELET VOLUME 9.8 fl (7.2-11.7); MONO # 2.2 K/uL (0.0-0.8); MONO % 9.1 % (0.0-10.0); NEUT % 83.7 % (50.0-75.0); RBC 5.48 Mil/uL (4.40-5.90); RED CELL DISTRIBUTION WIDTH 15.1 % (11.5-14.5); WHITE BLOOD COUNT 23.9 K/uL (4.8-10.8)
[2016-09-10 08:13] LABS: ALBUMIN 4.2 g/dL (3.5-5.0)
[2016-09-10 08:16] LABS: AST/SGOT 29 U/L (17-59)
[2016-09-10 08:17] LABS: ALB/GLOB RATIO 1.1 (1.0-2.1); ALT/SGPT 21 U/L (21-72); BLOOD UREA NITROGEN 22 mg/dl (9-20); CALCIUM 9.1 mg/dL (8.4-10.2)
[2016-09-10] MEDS ORDERED: Pantoprazole 40 mg EC Tab PO SCH (09:00)
[2016-09-10 09:06] LABS: GFR AFRICAN-AMERICAN > 60; GFR NON-AFRICAN AMERICAN > 60
--- NOTE | 2016-09-10 09:38 | CP.PCM.CON ---
History of Present Illness - History of Present Illness History of Present Illness: THE PATIENT IS A 55 YEAR OLD MALE WITH A HISTORY OF DM WITH GASTROPARESIS AND FOOT ULCERS WITH FREQUENT ADMISSIONS FOR SEVERE NAUSEA AND VOMITING. HE ALSO HAS A HISTORY OF SUPRAVENTRICULAR TACHYCARDIA AND HYPERTENSION. HE PRESENTED TO THE ER YESTERDAY WITH NAUSEA AND VOMITING AND WAS ADMITTED. CARDIOLOGY WAS ASKED TO SEE AND FOLLOW HIM DUE TO HIS SVT AND HYPERTENSION HISTORY. HE DENIES PALPITATIONS, CHEST PAIN OR SOB. Past Patient History - Past Medical History & Family History Past Medical History?: Yes - Past Social History Smoking Status: Never Smoked - CARDIAC Hx Cardiac Disorders: Yes Hx Hypertension: Yes - PULMONARY Hx Respiratory Disorders: Yes Hx Bronchitis: Yes Hx Pneumonia: Yes - NEUROLOGICAL Hx Neurological Disorder: Yes - HEENT Hx HEENT Problems: No - RENAL Hx Chronic Kidney Disease: No - ENDOCRINE/METABOLIC Hx Endocrine Disorders: Yes Hx Diabetes Mellitus Type 1: Yes - HEMATOLOGICAL/ONCOLOGICAL Hx Human Immunodeficiency Virus (HIV): No - INTEGUMENTARY Other/Comment: Diabetic ulcer left foot - MUSCULOSKELETAL/RHEUMATOLOGICAL Hx Musculoskeletal Disorders: No Hx Falls: No - GASTROINTESTINAL Other/Comment: gastroparesis - GENITOURINARY/GYNECOLOGICAL Hx Genitourinary Disorders: No - PSYCHIATRIC Hx Substance Use: No - SURGICAL HISTORY Hx Tonsillectomy: Yes - ANESTHESIA Hx Anesthesia: Yes Hx Anesthesia Reactions: No Hx Malignant Hyperthermia: No Meds Allergies/Adverse Reactions: Allergies Allergy/AdvReac Type Severity Reaction Status Date / Time iodine Allergy RASH Verified 09/09/16 12:09 shellfish derived Allergy RASH Verified 09/09/16 12:09 - Medications Medications: Current Medications Atenolol (Atenolol) 100 mg PO DAILY [facility] Enoxaparin Sodium (Lovenox) 30 mg SC DAILY [facility] PRN Reason: Protocol Home Med (Insulin Lispro [Humalog (Insulin Lispro)]) 0 unit SC AC [facility] Hydromorphone HCl (Dilaudid) 4 mg PO Q6H PRN PRN Reason: Pain, severe (8-10) Sodium Chloride (Sodium Chloride 0.45%) 1,000 mls @ 80 mls/hr IV .[id number] [facility] Stop: 09/11/16 01:04 Last Admin: 09/10/16 01:12 Dose: 80 mls/hr Methadone HCl (Methadone) 15 mg PO BID [facility] Metoclopramide HCl (Reglan) 10 mg IVP Q6 PRN PRN Reason: Nausea/Vomiting Last Admin: 09/10/16 01:44 Dose: 10 mg Pantoprazole Sodium (Protonix Ec Tab) 40 mg PO DAILY [facility] Pregabalin (Lyrica) 100 mg PO BID [facility] Sucralfate (Carafate Oral Susp) 1 gm PO QID [facility] Physical Exam - Respiratory Exam Respiratory Exam: Clear to Auscultation Bilateral - Cardiovascular Exam Cardiovascular Exam: REGULAR RHYTHM, +S1, +S2 - GI/Abdominal Exam GI & Abdominal Exam: Hypoactive Bowel Sounds, Soft - Extremities Exam Additional comments: FOOT ULCERS - Additional Findings Additional findings: THE PATIENT STATES THAT AN EKG WAS DONE IN THE ER BUT IT WASN'T SCANNED INTO THE EMR YET Results - Vital Signs Recent Vital Signs: Last Vital Signs Temp 99.2 F 09/10/16 08:06 Pulse 104 H 09/10/16 08:06 Resp 20 09/10/16 08:06 BP 146/83 09/10/16 08:06 Pulse Ox 100 09/10/16 08:06 - Labs Result Diagrams: 09/10/16 06:35 09/10/16 06:35 Labs: Laboratory Results - last 24 hr 09/10/16 09/10/16 09/10/16 00:57 06:33 06:35 WBC 23.9 H RBC 5.48 Hgb 13.3 Hct 41.4 MCV 75.6 L MCH 24.2 L MCHC 32.0 L RDW 15.1 H Plt Count 288 MPV 9.8 Neut % (Auto) 83.7 H Lymph % (Auto) 7.1 L [place] % (Auto) 9.1 Eos % (Auto) 0.0 Baso % (Auto) 0.1 Neut # 20.0 H Lymph # 1.7 [place] # 2.2 H Eos # 0.0 Baso # 0.0 Sodium Potassium Chloride Carbon Dioxide Anion Gap BUN Creatinine Est GFR ( Amer) Est GFR (Non-Af Amer) POC Glucose (mg/dL) 172 H 143 H Random Glucose Calcium Total Bilirubin AST ALT Alkaline Phosphatase Total Protein Albumin Globulin Albumin/Globulin Ratio 09/10/16 06:35 WBC RBC Hgb Hct MCV MCH MCHC RDW Plt Count MPV Neut % (Auto) Lymph % (Auto) [place] % (Auto) Eos % (Auto) Baso % (Auto) Neut # Lymph # [place] # Eos # Baso # Sodium 143 Potassium 3.6 Chloride 104 Carbon Dioxide 28 Anion Gap 17 BUN 22 H Creatinine 0.9 Est GFR ( Amer) > 60 Est GFR (Non-Af Amer) > 60 POC Glucose (mg/dL) Random Glucose 132 H Calcium 9.1 Total Bilirubin 1.5 H AST 29 ALT 21 D Alkaline Phosphatase 86 Total Protein 7.9 Albumin 4.2 Globulin 3.7 Albumin/Globulin Ratio 1.1 Assessment & Plan - Assessment and Plan (Free Text) Assessment: HYPERTENSION SVT HISTORY DM WITH SEVERE GASTROPARESIS Plan: CONTINUE IV FLUIDS, METOPROLOL, REGLAN, LOVENOX AND INSULIN GI, ENDOCRINOLOGY AND ID TO SEE
[2016-09-10] MEDS: ATENOLOL 100 MG TAB PO SCH (11:49)
[2016-09-10] MEDS: Sucralfate 1 gm/10 ml Oral Susp UD PO SCH ×4 (11:49→21:00)
[2016-09-10] MEDS: Insulin Lispro (humaLOG) 100 Units/ml Inj SC SCH ×3 (11:52→22:16)
--- NOTE | 2016-09-10 11:53 | CP.PCM.CON ---
History of Present Illness - History of Present Illness History of Present Illness: 55 YEAR OLD MALE WITH A HISTORY OF DM WITH GASTROPARESIS AND FOOT ULCERS WITH FREQUENT ADMISSIONS FOR SEVERE NAUSEA AND VOMITING. HE ALSO HAS A HISTORY OF SUPRAVENTRICULAR TACHYCARDIA AND HYPERTENSION. HE PRESENTED TO THE ER YESTERDAY WITH NAUSEA AND VOMITING AND WAS ADMITTED. CARDIOLOGY WAS ASKED TO SEE AND FOLLOW HIM DUE TO HIS SVT AND HYPERTENSION HISTORY. HE DENIES PALPITATIONS, CHEST PAIN OR SOB. Past Patient History - Past Medical History & Family History Past Medical History?: Yes - Past Social History Smoking Status: Never Smoked - CARDIAC Hx Cardiac Disorders: Yes Hx Hypertension: Yes - PULMONARY Hx Respiratory Disorders: Yes Hx Bronchitis: Yes Hx Pneumonia: Yes - NEUROLOGICAL Hx Neurological Disorder: Yes - HEENT Hx HEENT Problems: No - RENAL Hx Chronic Kidney Disease: No - ENDOCRINE/METABOLIC Hx Endocrine Disorders: Yes Hx Diabetes Mellitus Type 1: Yes - HEMATOLOGICAL/ONCOLOGICAL Hx Human Immunodeficiency Virus (HIV): No - INTEGUMENTARY Other/Comment: Diabetic ulcer left foot - MUSCULOSKELETAL/RHEUMATOLOGICAL Hx Musculoskeletal Disorders: No Hx Falls: No - GASTROINTESTINAL Other/Comment: gastroparesis - GENITOURINARY/GYNECOLOGICAL Hx Genitourinary Disorders: No - PSYCHIATRIC Hx Substance Use: No - SURGICAL HISTORY Hx Tonsillectomy: Yes - ANESTHESIA Hx Anesthesia: Yes Hx Anesthesia Reactions: No Hx Malignant Hyperthermia: No Meds Allergies/Adverse Reactions: Allergies Allergy/AdvReac Type Severity Reaction Status Date / Time iodine Allergy RASH Verified 09/09/16 12:09 shellfish derived Allergy RASH Verified 09/09/16 12:09 - Medications Medications: Current Medications Atenolol (Atenolol) 100 mg PO DAILY [facility] Last Admin: 09/10/16 11:49 Dose: Not Given Enoxaparin Sodium (Lovenox) 30 mg SC DAILY [facility] PRN Reason: Protocol Hydromorphone HCl (Dilaudid) 4 mg PO Q6H PRN PRN Reason: Pain, severe (8-10) Sodium Chloride (Sodium Chloride 0.45%) 1,000 mls @ 80 mls/hr IV .[id number] [facility] Stop: 09/11/16 01:04 Last Admin: 09/10/16 01:12 Dose: 80 mls/hr Metronidazole (Flagyl 500mg/100ml Ns) 100 mls @ 100 mls/hr IVPB Q8 [facility] Piperacillin Sod/Tazobactam (Sod 3.375 gm/ Sodium Chloride) 100 mls @ 100 mls/ hr IVPB Q12 [facility] Insulin Human Lispro (Humalog) 0 units SC ACHS [facility] Last Admin: 09/10/16 11:52 Dose: Not Given Methadone HCl (Methadone) 15 mg PO BID [facility] Last Admin: 09/10/16 11:50 Dose: Not Given Metoclopramide HCl (Reglan) 10 mg IVP Q6 PRN PRN Reason: Nausea/Vomiting Last Admin: 09/10/16 01:44 Dose: 10 mg Pantoprazole Sodium (Protonix Inj) 40 mg IVP DAILY [facility] Pregabalin (Lyrica) 100 mg PO BID [facility] Last Admin: 09/10/16 11:50 Dose: Not Given Sucralfate (Carafate Oral Susp) 1 gm PO QID [facility] Last Admin: 09/10/16 11:49 Dose: Not Given Results - Vital Signs Recent Vital Signs: Last Vital Signs Temp 99.2 F 09/10/16 09:00 Pulse 104 H 09/10/16 09:00 Resp 20 09/10/16 09:00 BP 146/83 09/10/16 09:00 Pulse Ox 100 09/10/16 09:00 - Labs Result Diagrams: 09/11/16 05:40 09/11/16 05:40 Labs: Laboratory Results - last 24 hr 09/10/16 11:24 POC Glucose (mg/dL) 160 H
[2016-09-10] MEDS: Piperacillin/Tazobact 3.375 GM in Sodium Chloride 0.9% 100 ML IVPB SCH ×2 (12:00→20:57)
[2016-09-10] MEDS: metroNIDAZOLE 500mg/100ml NS 100 ML IVPB SCH ×2 (13:11→16:30)
[2016-09-10] MEDS: Enoxaparin 30 mg Syringe SC SCH (13:11)
--- NOTE | 2016-09-10 18:40 | CP.PCM.CON ---
History of Present Illness - History of Present Illness History of Present Illness: Gi consult requested by Dr Sears- This is a 55 year old male with h/o DM, gastroparesis, HTN, opioid induced constipation, diabetic foot ulcers, on methadone who presented to the ED with nausea and vomiting with multiple previous admisisons for similar complaint. He was found to have leukocytosis. Had recent EGD/ colonoscopy on 04/05/16. H pylori negative gastritis. He denies diarrhea, constipation, rectal bleeding, cough, flu like symptoms Review of Systems - Review of Systems Review of Systems: 12 point ROS unremarkable except that documented in HPI Past Patient History - Past Medical History & Family History Past Medical History?: Yes - Past Social History Smoking Status: Never Smoked - CARDIAC Hx Cardiac Disorders: Yes Hx Hypertension: Yes - PULMONARY Hx Respiratory Disorders: Yes Hx Bronchitis: Yes Hx Pneumonia: Yes - NEUROLOGICAL Hx Neurological Disorder: Yes - HEENT Hx HEENT Problems: No - RENAL Hx Chronic Kidney Disease: No - ENDOCRINE/METABOLIC Hx Endocrine Disorders: Yes Hx Diabetes Mellitus Type 1: Yes - HEMATOLOGICAL/ONCOLOGICAL Hx Human Immunodeficiency Virus (HIV): No - INTEGUMENTARY Other/Comment: Diabetic ulcer left foot - MUSCULOSKELETAL/RHEUMATOLOGICAL Hx Musculoskeletal Disorders: No Hx Falls: No - GASTROINTESTINAL Other/Comment: gastroparesis - GENITOURINARY/GYNECOLOGICAL Hx Genitourinary Disorders: No - PSYCHIATRIC Hx Substance Use: No - SURGICAL HISTORY Hx Tonsillectomy: Yes - ANESTHESIA Hx Anesthesia: Yes Hx Anesthesia Reactions: No Hx Malignant Hyperthermia: No Meds Allergies/Adverse Reactions: Allergies Allergy/AdvReac Type Severity Reaction Status Date / Time iodine Allergy RASH Verified 09/09/16 12:09 shellfish derived Allergy RASH Verified 09/09/16 12:09 - Medications Medications: Current Medications Atenolol (Atenolol) 100 mg PO DAILY [facility] Last Admin: 09/10/16 11:49 Dose: Not Given Enoxaparin Sodium (Lovenox) 30 mg SC DAILY [facility] PRN Reason: Protocol Last Admin: 09/10/16 13:11 Dose: 30 mg Hydromorphone HCl (Dilaudid) 4 mg PO Q6H PRN PRN Reason: Pain, severe (8-10) Sodium Chloride (Sodium Chloride 0.45%) 1,000 mls @ 80 mls/hr IV .[id number] [facility] Stop: 09/11/16 01:04 Last Admin: 09/10/16 16:27 Dose: 80 mls/hr Metronidazole (Flagyl 500mg/100ml Ns) 100 mls @ 100 mls/hr IVPB Q8 [facility] Last Admin: 09/10/16 16:30 Dose: 100 mls/hr Piperacillin Sod/Tazobactam (Sod 3.375 gm/ Sodium Chloride) 100 mls @ 100 mls/ hr IVPB Q12 [facility] Last Admin: 09/10/16 12:00 Dose: 100 mls/hr Insulin Human Lispro (Humalog) 0 units SC ACHS [facility] Last Admin: 09/10/16 16:28 Dose: Not Given Methadone HCl (Methadone) 15 mg PO BID [facility] Last Admin: 09/10/16 17:51 Dose: 15 mg Metoclopramide HCl (Reglan) 10 mg IVP Q6 PRN PRN Reason: Nausea/Vomiting Last Admin: 09/10/16 01:44 Dose: 10 mg Pantoprazole Sodium (Protonix Inj) 40 mg IVP DAILY [facility] Last Admin: 09/10/16 12:00 Dose: 40 mg Pregabalin (Lyrica) 100 mg PO BID [facility] Last Admin: 09/10/16 17:50 Dose: 100 mg Sucralfate (Carafate Oral Susp) 1 gm PO QID [facility] Last Admin: 09/10/16 16:27 Dose: 1 gm Physical Exam - Constitutional Appears: Well, Non-toxic, No Acute Distress - Head Exam Head Exam: ATRAUMATIC, NORMAL INSPECTION, NORMOCEPHALIC - Eye Exam Eye Exam: EOMI, Normal appearance, PERRL - ENT Exam ENT Exam: Mucous Membranes Moist, Normal Exam - Neck Exam Neck exam: Positive for: Normal Inspection - Respiratory Exam Respiratory Exam: Clear to Auscultation Bilateral, NORMAL BREATHING PATTERN - Cardiovascular Exam Cardiovascular Exam: REGULAR RHYTHM, RRR, +S1, +S2 - GI/Abdominal Exam GI & Abdominal Exam: Normal Bowel Sounds, Soft. absent: Tenderness - Extremities Exam Extremities exam: Positive for: full ROM Additional comments: Chronic stasis changes - Neurological Exam Neurological exam: Alert, CN II-XII Intact, Normal Gait, Oriented x3, Reflexes Normal - Psychiatric Exam Psychiatric exam: Normal Affect, Normal Mood - Skin Skin Exam: Dry, Intact, Normal Color, Warm Results - Vital Signs Recent Vital Signs: Last Vital Signs Temp 99.3 F 07/25/17 17:00 Pulse 98 H 09/10/16 17:00 Resp 18 09/10/16 17:00 BP 144/90 09/10/16 17:00 Pulse Ox 97 09/10/16 17:00 - Labs Result Diagrams: 09/10/16 06:35 09/10/16 06:35 Labs: Laboratory Results - last 24 hr 09/10/16 09/10/16 11:24 15:41 POC Glucose (mg/dL) 160 H 165 H Assessment & Plan - Assessment and Plan (Free Text) Assessment: 55 year old male with h/o DM, suspected gastroparesis, HTN, opioid induced constipation, diabetic foot ulcers, on methadone who presented to the ED with nausea and vomiting. Had recent EGD/ colonoscopy on 04/05/16. H pylori negative gastritis. Unknown source of leukocytosis Plan: Plan: -advance diet as tolerated -minimize narcotics - Blood and urine cultures -tight glycemic control -bowel regimen with miralax 17 g bid -IV hydration/electrolyte replacement -recommend reglan prn nausea/vomiting -recommend protonix 40 mg daily -recommend carafate 1 g oral solution po qid -supportive care
[2016-09-10 20:40] LABS: URINE BILIRUBIN NEGATIVE (NEGATIVE); URINE BLOOD NEGATIVE (NEGATIVE); URINE CLARITY CLEAR (Clear); URINE COLOR YELLOW (YELLOW); URINE GLUCOSE (UA) >=500 mg/dL (Normal); URINE LEUKOCYTE ESTERASE NEG Leu/uL (Negative); URINE NITRATE NEGATIVE (NEGATIVE); URINE PROTEIN 30 mg/dL (NEGATIVE); URINE UROBILINOGEN 0.2-1.0 mg/dL (0.2-1.0)
--- NOTE | 2016-09-10 20:44 | CP.PCM.HP ---
History of Present Illness - History of Present Illness History of Present Illness: Patient is a 55yo male with Hx significant for DM, gastroparesis, HTN, opioid induced constipation, diabetic foot ulcers who presented with nausea and vomiting. Present on Admission - Present on Admission Any Indicators Present on Admission: No Past Patient History - Past Medical History & Family History Past Medical History?: Yes - Past Social History Smoking Status: Never Smoked - CARDIAC Hx Cardiac Disorders: Yes Hx Hypertension: Yes - PULMONARY Hx Respiratory Disorders: Yes Hx Bronchitis: Yes Hx Pneumonia: Yes - NEUROLOGICAL Hx Neurological Disorder: Yes - HEENT Hx HEENT Problems: No - RENAL Hx Chronic Kidney Disease: No - ENDOCRINE/METABOLIC Hx Endocrine Disorders: Yes Hx Diabetes Mellitus Type 1: Yes - HEMATOLOGICAL/ONCOLOGICAL Hx Human Immunodeficiency Virus (HIV): No - INTEGUMENTARY Other/Comment: Diabetic ulcer left foot - MUSCULOSKELETAL/RHEUMATOLOGICAL Hx Musculoskeletal Disorders: No Hx Falls: No - GASTROINTESTINAL Other/Comment: gastroparesis - GENITOURINARY/GYNECOLOGICAL Hx Genitourinary Disorders: No - PSYCHIATRIC Hx Substance Use: No - SURGICAL HISTORY Hx Tonsillectomy: Yes - ANESTHESIA Hx Anesthesia: Yes Hx Anesthesia Reactions: No Hx Malignant Hyperthermia: No Meds Allergies/Adverse Reactions: Allergies Allergy/AdvReac Type Severity Reaction Status Date / Time iodine Allergy RASH Verified 09/09/16 12:09 shellfish derived Allergy RASH Verified 09/09/16 12:09 Physical Exam - Respiratory Exam Respiratory Exam: NORMAL BREATHING PATTERN - Cardiovascular Exam Cardiovascular Exam: REGULAR RHYTHM - GI/Abdominal Exam GI & Abdominal Exam: Normal Bowel Sounds Results - Vital Signs Recent Vital Signs: Last Vital Signs Temp 99.3 F 09/10/16 17:00 Pulse 98 H 09/10/16 17:00 Resp 18 09/10/16 17:00 BP 144/90 09/10/16 17:00 Pulse Ox 97 09/10/16 17:00 - Labs Result Diagrams: 09/10/16 06:35 09/10/16 06:35 Labs: Laboratory Results - last 24 hr 09/10/16 09/10/16 11:24 15:41 POC Glucose (mg/dL) 160 H 165 H Assessment & Plan - Assessment and Plan (Free Text) Assessment: DM, gastroparesis, opioid induced constipation Elevated WBC ??? GI and ID consults appreciated ABX and GI meds - Date & Time Date: 09/10/16 Time: 22:22
[2016-09-11] MEDS: metroNIDAZOLE 500mg/100ml NS 100 ML IVPB SCH ×3 (00:22→17:07)
[2016-09-11 07:32] LABS: BASO % 0.3 % (0.0-2.0); EOS % 0.2 % (0.0-4.0); HEMOGLOBIN 11.6 g/dL (12.0-18.0); LYMPH % 14.3 % (20.0-40.0); MEAN CORPUSCULAR HEMOGLOBIN 24.2 pg (27.0-31.0); MEAN CORPUSCULAR HGB CONC 31.8 g/dL (33.0-37.0); MEAN PLATELET VOLUME 9.2 fl (7.2-11.7); MONO # 1.5 K/uL (0.0-0.8); MONO % 11.2 % (0.0-10.0); NEUT # 10.1 K/uL (1.8-7.0); RBC 4.8 Mil/uL (4.40-5.90); RED CELL DISTRIBUTION WIDTH 14.9 % (11.5-14.5); WHITE BLOOD COUNT 13.7 K/uL (4.8-10.8)
[2016-09-11 07:48] LABS: ALBUMIN 3.4 g/dL (3.5-5.0)
[2016-09-11 07:49] LABS: ALB/GLOB RATIO 1.3 (1.0-2.1); ALT/SGPT 30 U/L (21-72); AMYLASE 94 U/L (30-110); AST/SGOT 19 U/L (17-59); BLOOD UREA NITROGEN 24 mg/dl (9-20); CALCIUM 8.2 mg/dL (8.4-10.2); GFR AFRICAN-AMERICAN > 60; GFR NON-AFRICAN AMERICAN > 60; HDL CHOLESTEROL 35 MG/DL (30-70); LIPASE 55 U/L (23-300)
[2016-09-11 07:50] LABS: LDL CHOLESTEROL 83 mg/dL (0-129)
[2016-09-11] MEDS: Insulin Lispro (humaLOG) 100 Units/ml Inj SC SCH ×4 (08:02→21:19)
[2016-09-11] MEDS: Sucralfate 1 gm/10 ml Oral Susp UD PO SCH ×4 (08:25→21:14)
[2016-09-11] MEDS: Enoxaparin 30 mg Syringe SC SCH (08:31)
[2016-09-11] MEDS: ATENOLOL 100 MG TAB PO SCH ×2 (08:31→10:08)
--- NOTE | 2016-09-11 09:15 | CON ---
ENDOCRINOLOGY CONSULT LOCATION: Room 655. HISTORY OF PRESENT ILLNESS: This is a 55-year-old male with known history of type 2 insulin requiring diabetes presenting here with intractable vomiting and associated dyspepsia and upper abdominal pain, and is being referred now for diabetic evaluation and management. PAST MEDICAL HISTORY: History of type 2 insulin requiring diabetes, currently on a Medtronic insulin pump giving him continuous infusion as noted thereof. His glycemic profile has been fluctuating as noted. He has had multiple admissions for exacerbation of diabetic gastroparesis and has had multiple GI workup undertaken and continues to have the aforementioned symptomatology. History of diabetic retinopathy and polyneuropathy and denying coronary artery disease and peripheral artery disease and vasculopathy, history of lumbar disc disease and low back pain. He is also currently on Dilaudid taken as 4 mg p.o. q.6 hours and on maintenance methadone of 15 mg b.i.d. as noted. FAMILY HISTORY: Positive for diabetes and hypertension. SOCIAL HISTORY: The patient has supportive family. Past prior history of smoking, but quit a few months ago. REVIEW OF SYSTEMS: As mentioned above. Admits to generalized body weakness with easy fatigability and tiredness and suboptimal energy level. Also, admits to episodic bouts of dizziness and lightheadedness, worsened on the day of admission. No chest pains or palpitations or PND. His oral intake is variable with nausea, dyspepsia, intractable vomiting episodes brought to this admission, also admits to habitual constipation. PHYSICAL EXAMINATION: GENERAL: This is an average built male, in no apparent distress. VITAL SIGNS: Blood pressure of 150/90, pulse of 70 beats per minute and regular, temperature of 98, and respirations of 20. His height is 5 feet 7 inches. Weight is 170 pounds. HEENT: Head is normocephalic. Eyes anicteric with pink conjunctivae. Funduscopy is not possible at this time. Ears, nose and throat, otherwise normal. NECK: Supple. Thyroid gland is normal in size. No carotid bruits. No cervical adenopathy. CARDIOPULMONARY: Some adynamic precordium. S1 and S2 is rapid and regular. LUNGS: Clear to auscultation. ABDOMEN: Flat and soft with positive bowel sounds. EXTREMITIES: No peripheral edema and pulses are +2 bilaterally. LABORATORY DATA: Chemistries showed BUN of 25, sodium of 144, potassium of 3.9, chloride of 96, CO2 of 29, glucose of 323, and creatinine of 1.1. ASSESSMENT: This is a 55-year-old male with uncontrolled and decompensated type 2 insulin requiring diabetes, presenting here with acute exacerbation of underlying diabetic gastroparesis, with intractable vomiting episodes and now being referred for diabetic evaluation and management. He also has diabetic microvascular complications of retinopathy, and polyneuropathy with diabetic macrovascular complications of coronary artery disease and peripheral arterial disease and vasculopathy. PLAN: Plan of management was discussed with the patient and staff. We will allow the patient to continue his Medtronic insulin pump and we will also allow him to self adjust his own basal and bolus insulin dose regimen as ordered. Hemoglobin A1c will be done control and baseline thyroid function studies will be ordered. We will also order lipid panel and baseline thyroid function studies. As his vomiting subside then we will advance him to a soft to solid food as indicated. We continued the IV hydration as ordered and obtain serial chemistries accordingly. Rizwana Raygoza MD
--- NOTE | 2016-09-11 09:43 | CP.PCM.PN ---
Subjective - Date & Time of Evaluation Date of Evaluation: 09/11/16 Time of Evaluation: 08:00 - Subjective Subjective: NO CHEST PAIN OR PALPITATIONS Objective - Vital Signs/Intake and Output Vital Signs (last 24 hours): Temp Pulse Resp BP Pulse Ox 97 F L 82 20 156/97 H 98 09/11/16 07:48 09/11/16 07:48 09/11/16 07:48 09/11/16 07:48 09/11/16 07:48 - Medications Medications: Current Medications Atenolol (Atenolol) 100 mg PO DAILY [facility] Last Admin: 09/10/16 11:49 Dose: Not Given Enoxaparin Sodium (Lovenox) 30 mg SC DAILY [facility] PRN Reason: Protocol Last Admin: 09/11/16 08:31 Dose: 30 mg Hydromorphone HCl (Dilaudid) 4 mg PO Q6H PRN PRN Reason: Pain, severe (8-10) Metronidazole (Flagyl 500mg/100ml Ns) 100 mls @ 100 mls/hr IVPB Q8 [facility] Last Admin: 09/11/16 08:30 Dose: 100 mls/hr Piperacillin Sod/Tazobactam (Sod 3.375 gm/ Sodium Chloride) 100 mls @ 100 mls/ hr IVPB Q12 [facility] Last Admin: 09/10/16 20:57 Dose: 100 mls/hr Insulin Human Lispro (Humalog) 0 units SC ACHS [facility] Last Admin: 09/11/16 08:02 Dose: Not Given Methadone HCl (Methadone) 15 mg PO BID [facility] Last Admin: 09/10/16 17:51 Dose: 15 mg Metoclopramide HCl (Reglan) 10 mg IVP Q6 PRN PRN Reason: Nausea/Vomiting Last Admin: 09/11/16 08:38 Dose: 10 mg Pantoprazole Sodium (Protonix Inj) 40 mg IVP DAILY [facility] Last Admin: 09/11/16 08:31 Dose: 40 mg Pregabalin (Lyrica) 100 mg PO BID [facility] Last Admin: 09/10/16 17:50 Dose: 100 mg Sucralfate (Carafate Oral Susp) 1 gm PO QID [facility] Last Admin: 09/11/16 08:25 Dose: 1 gm - Labs Labs: 09/11/16 05:40 07/26/17 05:40 - Respiratory Exam Respiratory Exam: Clear to Ausculation Bilateral - Cardiovascular Exam Cardiovascular Exam: REGULAR RHYTHM, +S1, +S2 - Additional Findings Additional findings: GI CONSULT REVIEWED Assessment and Plan - Assessment and Plan (Free Text) Assessment: HYPERTENSION SVT HISTORY GASTROPARESIS DM Plan: CONTINUE ATENOLOL, REGLAN, ANTIBIOTICS AND LOVENOX
[2016-09-11] MEDS: Piperacillin/Tazobact 3.375 GM in Sodium Chloride 0.9% 100 ML IVPB SCH ×2 (10:08→21:17)
[2016-09-11 11:38] LABS: CORTISOL AM 12.3 ug/dL (4.46-22.7)
[2016-09-11] MEDS: Sodium Chloride 0.45% 1,000 ML IV SCH (12:14)
[2016-09-11] MEDS ORDERED: Potassium Chloride 20 mEq/15 ml LIQ UD PO ONE (12:15)
--- NOTE | 2016-09-11 13:29 | CP.PCM.PN ---
Subjective - Date & Time of Evaluation Date of Evaluation: 09/11/16 Time of Evaluation: 13:00 - Subjective Subjective: Patient comfortable at bedside. Denies vomiting, fever, chills or abdominal pain. States able to tolerate liquid diet and would like to stay on it for few days Objective - Vital Signs/Intake and Output Vital Signs (last 24 hours): Temp Pulse Resp BP Pulse Ox 97 F L 82 20 156/97 H 98 09/11/16 09:00 09/11/16 09:00 09/11/16 09:00 09/11/16 09:00 09/11/16 09:00 - Medications Medications: Current Medications Atenolol (Atenolol) 100 mg PO DAILY [facility] Last Admin: 09/11/16 10:08 Dose: Not Given Enoxaparin Sodium (Lovenox) 30 mg SC DAILY [facility] PRN Reason: Protocol Last Admin: 09/11/16 08:31 Dose: 30 mg Hydromorphone HCl (Dilaudid) 4 mg PO Q6H PRN PRN Reason: Pain, severe (8-10) Metronidazole (Flagyl 500mg/100ml Ns) 100 mls @ 100 mls/hr IVPB Q8 [facility] Last Admin: 09/11/16 08:30 Dose: 100 mls/hr Piperacillin Sod/Tazobactam (Sod 3.375 gm/ Sodium Chloride) 100 mls @ 100 mls/ hr IVPB Q12 [facility] Last Admin: 09/11/16 10:08 Dose: 100 mls/hr Sodium Chloride (Sodium Chloride 0.45%) 1,000 mls @ 80 mls/hr IV .[id number] [facility] Stop: 09/12/16 12:14 Insulin Human Lispro (Humalog) 0 units SC ACHS [facility] Last Admin: 09/11/16 11:56 Dose: Not Given Methadone HCl (Methadone) 15 mg PO BID [facility] Last Admin: 09/11/16 10:08 Dose: Not Given Metoclopramide HCl (Reglan) 10 mg IVP Q6 PRN PRN Reason: Nausea/Vomiting Last Admin: 09/11/16 08:38 Dose: 10 mg Pantoprazole Sodium (Protonix Inj) 40 mg IVP DAILY [facility] Last Admin: 09/11/16 08:31 Dose: 40 mg Pregabalin (Lyrica) 100 mg PO BID [facility] Last Admin: 09/11/16 10:08 Dose: Not Given Sucralfate (Carafate Oral Susp) 1 gm PO QID [facility] Last Admin: 09/11/16 12:50 Dose: 1 gm - Labs Labs: 09/11/16 05:40 09/11/16 05:40 - Constitutional Appears: Well, Non-toxic, No Acute Distress - Head Exam Head Exam: ATRAUMATIC, NORMAL INSPECTION, NORMOCEPHALIC - Eye Exam Eye Exam: EOMI, Normal appearance, PERRL - Respiratory Exam Respiratory Exam: Clear to Ausculation Bilateral, NORMAL BREATHING PATTERN - Cardiovascular Exam Cardiovascular Exam: REGULAR RHYTHM, RRR, +S1, +S2. absent: Murmur - GI/Abdominal Exam GI & Abdominal Exam: Soft, Hypoactive Bowel Sounds Additional comments: No guarding or rigidity - Extremities Exam Extremities Exam: Full ROM - Neurological Exam Neurological Exam: Alert, Awake, Oriented x3 - Psychiatric Exam Psychiatric exam: Normal Affect, Normal Mood - Skin Skin Exam: Dry, Intact, Normal Color Assessment and Plan - Assessment and Plan (Free Text) Assessment: 55 year old male with h/o DM, gastroparesis s/p EGD in Mar 2016 showing poor pristalsis, HTN, opioid induced constipation, diabetic foot ulcers, on methadone who presented to the ED with nausea and vomiting. Had recent EGD/ colonoscopy on 04/05/16. H pylori negative gastritis. Unknown source of leukocytosis now downtrending Plan: -advance diet as tolerated -minimize narcotics - Blood and urine cultures follow up -tight glycemic control -bowel regimen with miralax 17 g bid -IV hydration/electrolyte replacement -recommend reglan prn nausea/vomiting -recommend protonix 40 mg daily -recommend carafate 1 g oral solution po qid - EGD in mar showed esophagitis, hiatal hernia and poor peristalsis with moderate gastritis and H pylori negative - No indication for repeat EGD - CTAP reviewed -supportive care
--- NOTE | 2016-09-11 13:43 | PQF DM ---
This form is a permanent part of the medical record 09/11/16 Dr. Gomez, Please clarify if DM I or DM II. H&P with documentation of DM I in the PMH template and endocrine consult with DM II with DM gastroparesis, retinopathy, polyneuropathy, macrovascular complications of cad, pad and vasculopathy. Patient has an insulin pump. Clarification of your documentation is requested to better reflect the severity of illness and intensity of treatment of your patient. Indicators present: [x] Documented diagnosis of Diabetes [] Documented condition [] A1C results [x] Diabetic medications [] Elevated blood glucose [] Nutritional consults [] ADA diet [] Other: [] Location in the medical record that reflects the above clinical findings:[] Treatment Provided: PHYSICIAN'S RESPONSE Based on your medical judgment of the clinical indicators outlined above, are you treating this patient for a known or suspected: [] Diabetes Mellitus, Type I [] Controlled [] Uncontrolled [] Diabetes Mellitus, Type II [] Controlled [] Uncontrolled [] Diabetes, Steroid induced [] Controlled [] Uncontrolled [] Diabetic conditions/complications [] Other, please indicate [] [] If Unable to Determine, please check the box, sign and date. Present On Admission (POA) Indicator: [] Present at the time of admission [] Not present at the time of admission [] Clinically Undetermined In responding to this query, please exercise your independent professional judgment. The fact that a question is asked does not imply that any particular answer is desired or expected. Thank you for your clarification on this documentation. If you have any questions please call:ext [phone] or [phone] Medical Records Dept * Thank you, Nargis Manzanares RN CDMP MTDD
--- NOTE | 2016-09-11 18:56 | CP.PCM.PN ---
Subjective - Date & Time of Evaluation Date of Evaluation: 09/11/16 Time of Evaluation: 22:22 - Subjective Subjective: Still with nausea Loose BM WBC 13K Objective - Vital Signs/Intake and Output Vital Signs (last 24 hours): Temp Pulse Resp BP Pulse Ox 98.8 F 86 18 138/87 97 09/11/16 17:00 09/11/16 16:08 09/11/16 16:08 09/11/16 16:08 09/11/16 16:08 - Medications Medications: Current Medications Atenolol (Atenolol) 100 mg PO DAILY [facility] Last Admin: 09/11/16 10:08 Dose: Not Given Enoxaparin Sodium (Lovenox) 30 mg SC DAILY [facility] PRN Reason: Protocol Last Admin: 09/11/16 08:31 Dose: 30 mg Hydromorphone HCl (Dilaudid) 4 mg PO Q6H PRN PRN Reason: Pain, severe (8-10) Metronidazole (Flagyl 500mg/100ml Ns) 100 mls @ 100 mls/hr IVPB Q8 [facility] Last Admin: 09/11/16 17:07 Dose: 100 mls/hr Piperacillin Sod/Tazobactam (Sod 3.375 gm/ Sodium Chloride) 100 mls @ 100 mls/ hr IVPB Q12 [facility] Last Admin: 09/11/16 10:08 Dose: 100 mls/hr Sodium Chloride (Sodium Chloride 0.45%) 1,000 mls @ 80 mls/hr IV .[id number] [facility] Stop: 09/12/16 12:14 Last Admin: 09/11/16 12:14 Dose: 80 mls/hr Insulin Human Lispro (Humalog) 0 units SC ACHS [facility] Last Admin: 09/11/16 17:07 Dose: Not Given Methadone HCl (Methadone) 15 mg PO BID [facility] Last Admin: 09/11/16 17:07 Dose: Not Given Metoclopramide HCl (Reglan) 10 mg IVP Q6 PRN PRN Reason: Nausea/Vomiting Last Admin: 09/11/16 08:38 Dose: 10 mg Pantoprazole Sodium (Protonix Inj) 40 mg IVP DAILY [facility] Last Admin: 09/11/16 08:31 Dose: 40 mg Pregabalin (Lyrica) 100 mg PO BID [facility] Last Admin: 09/11/16 17:07 Dose: Not Given Sucralfate (Carafate Oral Susp) 1 gm PO ACHS [facility] Last Admin: 09/11/16 16:21 Dose: 1 gm - Labs Labs: 09/11/16 05:40 09/11/16 05:40 - Respiratory Exam Respiratory Exam: NORMAL BREATHING PATTERN - Cardiovascular Exam Cardiovascular Exam: REGULAR RHYTHM - GI/Abdominal Exam GI & Abdominal Exam: Normal Bowel Sounds Assessment and Plan - Assessment and Plan (Free Text) Assessment: DM, gastroparesis, opioid induced constipation Elevated WBC ??? GI and ID notes appreciated ABX and GI meds
--- NOTE | 2016-09-11 19:11 | CP.PCM.PN ---
Subjective - Date & Time of Evaluation Date of Evaluation: 09/11/16 Time of Evaluation: 08:00 - Subjective Subjective: vomiting still no pus from foot wound Objective - Vital Signs/Intake and Output Vital Signs (last 24 hours): Temp Pulse Resp BP Pulse Ox 98.8 F 86 18 138/87 97 09/11/16 17:00 09/11/16 16:08 09/11/16 16:08 09/11/16 16:08 09/11/16 16:08 - Medications Medications: Current Medications Atenolol (Atenolol) 100 mg PO DAILY [facility] Last Admin: 09/11/16 10:08 Dose: Not Given Enoxaparin Sodium (Lovenox) 30 mg SC DAILY [facility] PRN Reason: Protocol Last Admin: 09/11/16 08:31 Dose: 30 mg Hydromorphone HCl (Dilaudid) 4 mg PO Q6H PRN PRN Reason: Pain, severe (8-10) Metronidazole (Flagyl 500mg/100ml Ns) 100 mls @ 100 mls/hr IVPB Q8 [facility] Last Admin: 09/11/16 17:07 Dose: 100 mls/hr Piperacillin Sod/Tazobactam (Sod 3.375 gm/ Sodium Chloride) 100 mls @ 100 mls/ hr IVPB Q12 [facility] Last Admin: 09/11/16 10:08 Dose: 100 mls/hr Sodium Chloride (Sodium Chloride 0.45%) 1,000 mls @ 80 mls/hr IV .[id number] [facility] Stop: 09/12/16 12:14 Last Admin: 09/11/16 12:14 Dose: 80 mls/hr Insulin Human Lispro (Humalog) 0 units SC ACHS [facility] Last Admin: 09/11/16 17:07 Dose: Not Given Methadone HCl (Methadone) 15 mg PO BID [facility] Last Admin: 09/11/16 17:07 Dose: Not Given Metoclopramide HCl (Reglan) 10 mg IVP Q6 PRN PRN Reason: Nausea/Vomiting Last Admin: 09/11/16 08:38 Dose: 10 mg Pantoprazole Sodium (Protonix Inj) 40 mg IVP DAILY [facility] Last Admin: 09/11/16 08:31 Dose: 40 mg Pregabalin (Lyrica) 100 mg PO BID [facility] Last Admin: 09/11/16 17:07 Dose: Not Given Sucralfate (Carafate Oral Susp) 1 gm PO ACHS [facility] Last Admin: 09/11/16 16:21 Dose: 1 gm - Labs Labs: 09/11/16 05:40 09/11/16 05:40 - Constitutional Appears: Non-toxic, Cachectic, Chronically Ill - Head Exam Head Exam: NORMOCEPHALIC - Eye Exam Eye Exam: PERRL. absent: Scleral icterus - ENT Exam ENT Exam: Mucous Membranes Dry - Neck Exam Neck Exam: absent: Lymphadenopathy - Respiratory Exam Respiratory Exam: Decreased Breath Sounds - Cardiovascular Exam Cardiovascular Exam: REGULAR RHYTHM - GI/Abdominal Exam GI & Abdominal Exam: Distended, Soft Assessment and Plan - Assessment and Plan (Free Text) Plan: cont hydration rx gastroparesis
[2016-09-11] MEDS ORDERED: Acetaminophen 650mg/20.3ml solution UD PO PRN (21:20)
[2016-09-11] MEDS ORDERED: Acetaminophen 650mg/20.3ml solution UD PO STA (21:21)
--- NOTE | 2016-09-11 21:28 | CP.PCM.PN ---
Subjective - Date & Time of Evaluation Date of Evaluation: 09/11/16 Time of Evaluation: 21:28 - Subjective Subjective: Requested by Dr Hay evaluate patient with melena The patient is seen and examined at bedside. He is awake and alert, refers mild stomach upset, wants more carafate, had an episode of diarrhea with black stool. General: No respiratory distress, appears comfortable Resp: Clear lung [place] CVS: RRR no murmurs Abdomen: Full, +ve bowel sounds, mild general tenderness on palpation, no guarding, no rebound, Neuro: Non Focal I&P #. GI bleed Probably upper - GI on consult - Monitor Hb Q8hrs - Type and Screen - No immediate need for transfusion Patient does not want blood transfusion if it could be avoided #. Anemia. Hb has fallen from 15.1 to 11.6 since admission which is caused by hemodilution and blood loss. - follow HB Junaid Olivas MD Hospitalist Objective - Vital Signs/Intake and Output Vital Signs (last 24 hours): Temp Pulse Resp BP Pulse Ox 99.9 F H 86 20 148/90 97 09/11/16 20:55 09/11/16 20:55 09/11/16 20:55 09/11/16 20:55 09/11/16 16:08 - Medications Medications: Current Medications Acetaminophen (Tylenol 650mg/20.3ml Solution Ud) 650 mg PO Q4 PRN PRN Reason: Temperature Atenolol (Atenolol) 100 mg PO DAILY [facility] Last Admin: 09/11/16 10:08 Dose: Not Given Enoxaparin Sodium (Lovenox) 30 mg SC DAILY [facility] PRN Reason: Protocol Last Admin: 09/11/16 08:31 Dose: 30 mg Hydromorphone HCl (Dilaudid) 4 mg PO Q6H PRN PRN Reason: Pain, severe (8-10) Metronidazole (Flagyl 500mg/100ml Ns) 100 mls @ 100 mls/hr IVPB Q8 [facility] Last Admin: 09/11/16 17:07 Dose: 100 mls/hr Piperacillin Sod/Tazobactam (Sod 3.375 gm/ Sodium Chloride) 100 mls @ 100 mls/ hr IVPB Q12 [facility] Last Admin: 09/11/16 21:17 Dose: 100 mls/hr Sodium Chloride (Sodium Chloride 0.45%) 1,000 mls @ 80 mls/hr IV .[id number] [facility] Stop: 09/12/16 12:14 Last Admin: 09/11/16 12:14 Dose: 80 mls/hr Insulin Human Lispro (Humalog) 0 units SC [facility] Last Admin: 09/11/16 21:19 Dose: Not Given Methadone HCl (Methadone) 15 mg PO BID [facility] Last Admin: 09/11/16 17:07 Dose: Not Given Metoclopramide HCl (Reglan) 10 mg IVP Q6 PRN PRN Reason: Nausea/Vomiting Last Admin: 09/11/16 08:38 Dose: 10 mg Pantoprazole Sodium (Protonix Inj) 40 mg IVP DAILY [facility] Last Admin: 09/11/16 08:31 Dose: 40 mg Pregabalin (Lyrica) 100 mg PO BID [facility] Last Admin: 09/11/16 17:07 Dose: Not Given Sucralfate (Carafate Oral Susp) 1 gm PO [facility] Last Admin: 09/11/16 21:14 Dose: 1 gm - Labs Labs: 09/11/16 05:40 09/11/16 05:40
--- NOTE | 2016-09-12 00:14 | PN ---
ENDOCRINE FOLLOWUP NOTE: ROOM: 656 SUBJECTIVE: This is a 55-year-old male with recent uncontrolled type 2 insulin requiring diabetes, currently on a Medtronic insulin pump with continuous insulin infusion who was admitted here once again with intractable vomiting episodes and associated nausea, dyspepsia and upper abdominal pain with no history of diabetic gastroparesis and is now being followed closely for metabolic management. His glycemic levels are fluctuating, but much improved at this time and the latest glucose levels have ranged from 143 to 160 and 172 mg/dL. His latest chemistry showed BUN of 24, sodium 140, potassium 3.3, chloride 103, CO2 of 29, glucose 113, and creatinine 1.0. His A1c is 7.7% which is near optimal and indicative of very good diabetic control on the outpatient with his underlying Medtronic insulin pump. So, at this time, we will allow the patient to continue his self dose adjustments of his insulin pump with both basal and bolus insulin doses to be given by the patient depending on his fingerstick glucose done 4 times a day as ordered. We will obtain serum chemistries and supplement accordingly as needed. We will follow. Rizwana Raygoza MD
[2016-09-12] MEDS: metroNIDAZOLE 500mg/100ml NS 100 ML IVPB SCH ×3 (00:35→18:18)
[2016-09-12 05:28] LABS: BLOOD UREA NITROGEN 15 mg/dl (9-20); CALCIUM 8.1 mg/dL (8.4-10.2); GFR AFRICAN-AMERICAN > 60; GFR NON-AFRICAN AMERICAN > 60
[2016-09-12 05:32] LABS: HEMOGLOBIN 11.9 g/dL (12.0-18.0); MEAN CELL VOLUME 76.2 fl (80.0-94.0); MEAN CORPUSCULAR HEMOGLOBIN 24.1 pg (27.0-31.0); MEAN CORPUSCULAR HGB CONC 31.7 g/dL (33.0-37.0); RBC 4.95 Mil/uL (4.40-5.90); RED CELL DISTRIBUTION WIDTH 14.6 % (11.5-14.5); WHITE BLOOD COUNT 10.7 K/uL (4.8-10.8)
[2016-09-12] MEDS: Potassium CL 10mEq/100ml 100 ML IVPB SCH ×2 (06:54→09:12)
[2016-09-12] MEDS: Sucralfate 1 gm/10 ml Oral Susp UD PO SCH ×4 (06:55→21:12)
[2016-09-12] MEDS: Insulin Lispro (humaLOG) 100 Units/ml Inj SC SCH ×4 (07:00→21:12)
[2016-09-12] MEDS: Sodium Chloride 0.45% 1,000 ML IV SCH (07:01)
[2016-09-12] MEDS ORDERED: Potassium Chloride 20 mEq/15 ml LIQ UD PO ONE (08:44)
[2016-09-12] MEDS ORDERED: Potassium Chloride 20 MEQ in Sodium Chloride 0.45% 1,000 ML IV SCH (08:48)
[2016-09-12] MEDS: ATENOLOL 100 MG TAB PO SCH (09:10)
[2016-09-12] MEDS: Piperacillin/Tazobact 3.375 GM in Sodium Chloride 0.9% 100 ML IVPB SCH ×2 (09:14→21:10)
--- NOTE | 2016-09-12 09:23 | CP.PCM.PN ---
Subjective - Date & Time of Evaluation Date of Evaluation: 09/12/16 Time of Evaluation: 08:20 - Subjective Subjective: NO CHEST PAIN, PALPITATIONS OR SOB HAD MELENA Objective - Vital Signs/Intake and Output Vital Signs (last 24 hours): Temp Pulse Resp BP Pulse Ox 98.5 F 77 20 122/76 99 09/12/16 08:35 09/12/16 09:10 09/12/16 08:35 09/12/16 09:10 09/12/16 08:35 - Medications Medications: Current Medications Acetaminophen (Tylenol 650mg/20.3ml Solution Ud) 650 mg PO Q4 PRN PRN Reason: Temperature Atenolol (Atenolol) 100 mg PO DAILY [facility] Last Admin: 09/12/16 09:10 Dose: 100 mg Hydromorphone HCl (Dilaudid) 4 mg PO Q6H PRN PRN Reason: Pain, severe (8-10) Metronidazole (Flagyl 500mg/100ml Ns) 100 mls @ 100 mls/hr IVPB Q8 [facility] Last Admin: 09/12/16 09:11 Dose: 100 mls/hr Piperacillin Sod/Tazobactam (Sod 3.375 gm/ Sodium Chloride) 100 mls @ 100 mls/ hr IVPB Q12 [facility] Last Admin: 09/12/16 09:14 Dose: 100 mls/hr Potassium Chloride 20 meq/ (Sodium Chloride) 1,010 mls @ 80 mls/hr IV .[id number] [facility] Stop: 09/12/16 12:14 Insulin Human Lispro (Humalog) 0 units SC ACHS [facility] Last Admin: 09/12/16 07:00 Dose: Not Given Methadone HCl (Methadone) 15 mg PO BID [facility] Last Admin: 09/11/16 17:07 Dose: Not Given Metoclopramide HCl (Reglan) 10 mg IVP Q6 PRN PRN Reason: Nausea/Vomiting Last Admin: 09/11/16 08:38 Dose: 10 mg Pantoprazole Sodium (Protonix Inj) 40 mg IVP DAILY [facility] Last Admin: 09/12/16 09:14 Dose: 40 mg Polyethylene Glycol (Miralax) 17 gm PO BID [facility] Pregabalin (Lyrica) 100 mg PO BID [facility] Last Admin: 09/11/16 17:07 Dose: Not Given Sucralfate (Carafate Oral Susp) 1 gm PO ACHS [facility] Last Admin: 09/12/16 06:55 Dose: 1 gm - Labs Labs: 09/12/16 04:20 09/12/16 04:20 - Respiratory Exam Respiratory Exam: Clear to Ausculation Bilateral - Cardiovascular Exam Cardiovascular Exam: REGULAR RHYTHM, +S1, +S2 - Extremities Exam Additional comments: LEG ULCERS - Additional Findings Additional findings: PATIENT AND NURSES STATE THAT THE PATIENT HAD MELENA EKG ON ADMISSION SHOWED SINUS RHYTHM WITH PACS H/H K+ 3.3 Assessment and Plan - Assessment and Plan (Free Text) Assessment: DM WITH GASTROPARESIS HYPERTENSION PAST HISTORY OF SVT MELENA Plan: LOVENOX WAS STOPPED DUE TO THE MELENA CONTINUE ATENOLOL, REGLAN, PROTONIX, CARAFATE, IV FLUIDS WITH KCL
[2016-09-12] MEDS: POLYETHYLENE GLYCOL 3350 17 GM/Dose PACKET PO SCH ×3 (11:21→18:17)
[2016-09-12 12:41] LABS: HEMOGLOBIN 11.8 g/dL (12.0-18.0); MEAN CELL VOLUME 76.3 fl (80.0-94.0); MEAN CORPUSCULAR HEMOGLOBIN 24.3 pg (27.0-31.0); MEAN CORPUSCULAR HGB CONC 31.9 g/dL (33.0-37.0); RBC 4.86 Mil/uL (4.40-5.90); RED CELL DISTRIBUTION WIDTH 14.7 % (11.5-14.5); WHITE BLOOD COUNT 9.3 K/uL (4.8-10.8)
--- NOTE | 2016-09-12 12:48 | CP.PCM.PN ---
Subjective - Date & Time of Evaluation Date of Evaluation: 09/12/16 Time of Evaluation: 12:00 - Subjective Subjective: Patient seen at bedside. states had dark bowel movements yesterday which looked like blood. This morning as per nurse stool collected is brown. Rectal exam by me at bedside is yellow stool. On liquid diet. Complaining of nausea. No vomiting. States had 8 episodes of loose stools since yesterday. On IV antibiotics Objective - Vital Signs/Intake and Output Vital Signs (last 24 hours): Temp Pulse Resp BP Pulse Ox 98.5 F 77 20 122/76 99 09/12/16 08:35 09/12/16 09:10 09/12/16 08:35 09/12/16 09:10 09/12/16 08:35 - Medications Medications: Current Medications Acetaminophen (Tylenol 650mg/20.3ml Solution Ud) 650 mg PO Q4 PRN PRN Reason: Temperature Atenolol (Atenolol) 100 mg PO DAILY [facility] Last Admin: 09/12/16 09:10 Dose: 100 mg Hydromorphone HCl (Dilaudid) 4 mg PO Q6H PRN PRN Reason: Pain, severe (8-10) Metronidazole (Flagyl 500mg/100ml Ns) 100 mls @ 100 mls/hr IVPB Q8 [facility] Last Admin: 09/12/16 09:11 Dose: 100 mls/hr Piperacillin Sod/Tazobactam (Sod 3.375 gm/ Sodium Chloride) 100 mls @ 100 mls/ hr IVPB Q12 [facility] Last Admin: 09/12/16 09:14 Dose: 100 mls/hr Insulin Human Lispro (Humalog) 0 units SC ACHS [facility] Last Admin: 09/12/16 07:00 Dose: Not Given Methadone HCl (Methadone) 15 mg PO BID [facility] Last Admin: 09/12/16 11:16 Dose: 15 mg Metoclopramide HCl (Reglan) 10 mg IVP Q6 PRN PRN Reason: Nausea/Vomiting Last Admin: 09/11/16 08:38 Dose: 10 mg Pantoprazole Sodium (Protonix Inj) 40 mg IVP DAILY [facility] Last Admin: 09/12/16 09:14 Dose: 40 mg Polyethylene Glycol (Miralax) 17 gm PO BID [facility] Pregabalin (Lyrica) 100 mg PO BID [facility] Last Admin: 09/12/16 11:16 Dose: 100 mg Sucralfate (Carafate Oral Susp) 1 gm PO ACHS [facility] Last Admin: 09/12/16 06:55 Dose: 1 gm - Labs Labs: 09/12/16 04:20 09/12/16 04:20 - Constitutional Appears: Well, Non-toxic, No Acute Distress - Head Exam Head Exam: ATRAUMATIC, NORMAL INSPECTION, NORMOCEPHALIC - Eye Exam Eye Exam: EOMI, Normal appearance, PERRL - ENT Exam ENT Exam: Mucous Membranes Moist, Normal Exam - Cardiovascular Exam Cardiovascular Exam: REGULAR RHYTHM, Rubs, +S1, +S2. absent: Murmur - GI/Abdominal Exam GI & Abdominal Exam: Soft, Normal Bowel Sounds. absent: Tenderness Additional comments: Inuslin pump + - Rectal Exam Rectal Exam: NORMAL INSPECTION Additional comments: Stool yellow and without blood - Extremities Exam Additional comments: Feet under bandage - Neurological Exam Neurological Exam: Alert, Awake, CN II-XII Intact, Normal Gait, Oriented x3 - Psychiatric Exam Psychiatric exam: Normal Affect, Normal Mood Assessment and Plan - Assessment and Plan (Free Text) Assessment: 55 year old male with h/o DM, gastroparesis s/p EGD in Mar 2016 showing poor peristalsis, HTN, opioid induced constipation, diabetic foot ulcers, on methadone who presented to the ED with nausea and vomiting. Had recent EGD/ colonoscopy on 04/05/16. H pylori negative gastritis. Unknown source of leukocytosis now downtrending Plan: - Loose stools without blood on rectal exam - IVF - Supportive care - Send stool infectious work up- stool wbc, culture, C.diff, O and P - Diet as tolerated - Anti emetics as tolerated - Minimize narcotics - Trend daily wbc and fever curve - No active GI bleeding - PPI in am, Carafate po q 6 hours and H2 conner at night - Will follow
[2016-09-12 15:01] LABS: C DIFF TOXIN A B NEGATIVE (NEGATIVE)
[2016-09-12] MEDS ORDERED: Alum-Mag Hydrox-Simethicone Susp (30 mL) PO ONE (16:03)
--- NOTE | 2016-09-12 17:17 | PN ---
ROOM: 656. SUBJECTIVE: This is a 55-year-old male with recent uncontrolled type 2 insulin requiring diabetes, presenting here with acute exacerbation of diabetic gastroparesis and supervening intractable vomiting episodes with nausea, dyspepsia and vague upper abdominal pains. He is being followed closely now for diabetic management as noted. His glucose values are much improved at this time and the latest glucose levels have ranged from 108 to 140 and *------* mg/dL. His latest chemistry showed BUN of 15, sodium 138, potassium 3.3, chloride 104, CO2 28, glucose 112, and creatinine is 0.9. So, at this time, we will continue the patient*s Medtronic insulin pump, which will allow the patient to get both continuous basal insulin infusion with bolus insulin injections with each meal as indicated. We will titrate incremental as indicated to optimize metabolic control. We will also allow the patient to self adjust on basal and bolus insulin dosing accordingly. We will obtain serial chemistries and supplement accordingly as needed. We will follow. Rizwana Raygoza MD
--- NOTE | 2016-09-12 21:00 | CP.PCM.PN ---
Subjective - Date & Time of Evaluation Date of Evaluation: 09/12/16 Time of Evaluation: 22:22 - Subjective Subjective: Dec diarrhea Improved since yesterday Objective - Vital Signs/Intake and Output Vital Signs (last 24 hours): Temp Pulse Resp BP Pulse Ox 98.5 F 67 18 136/87 100 09/12/16 16:06 09/12/16 16:06 09/12/16 16:06 09/12/16 16:06 09/12/16 16:06 - Medications Medications: Current Medications Acetaminophen (Tylenol 650mg/20.3ml Solution Ud) 650 mg PO Q4 PRN PRN Reason: Temperature Atenolol (Atenolol) 100 mg PO DAILY [facility] Last Admin: 09/12/16 09:10 Dose: 100 mg Hydromorphone HCl (Dilaudid) 4 mg PO Q6H PRN PRN Reason: Pain, severe (8-10) Metronidazole (Flagyl 500mg/100ml Ns) 100 mls @ 100 mls/hr IVPB Q8 [facility] Last Admin: 09/12/16 18:18 Dose: 100 mls/hr Piperacillin Sod/Tazobactam (Sod 3.375 gm/ Sodium Chloride) 100 mls @ 100 mls/ hr IVPB Q12 [facility] Last Admin: 09/12/16 09:14 Dose: 100 mls/hr Insulin Human Lispro (Humalog) 0 units SC ACHS [facility] Last Admin: 09/12/16 18:16 Dose: Not Given Lactic Acid (Lac-Hydrin 12% Lotion (225 G)) 1 applic TOP TID [facility] Last Admin: 09/12/16 18:19 Dose: 1 u Methadone HCl (Methadone) 15 mg PO BID [facility] Last Admin: 09/12/16 18:35 Dose: 15 mg Metoclopramide HCl (Reglan) 10 mg IVP Q6 PRN PRN Reason: Nausea/Vomiting Last Admin: 09/12/16 13:00 Dose: 10 mg Pantoprazole Sodium (Protonix Inj) 40 mg IVP DAILY [facility] Last Admin: 09/12/16 09:14 Dose: 40 mg Polyethylene Glycol (Miralax) 17 gm PO BID [facility] Last Admin: 09/12/16 18:17 Dose: Not Given Pregabalin (Lyrica) 100 mg PO BID [facility] Last Admin: 07/27/17 18:36 Dose: 100 mg Sucralfate (Carafate Oral Susp) 1 gm PO ACHS [facility] Last Admin: 09/12/16 17:00 Dose: 1 gm - Labs Labs: 09/12/16 12:15 09/12/16 04:20 - Respiratory Exam Respiratory Exam: NORMAL BREATHING PATTERN - Cardiovascular Exam Cardiovascular Exam: REGULAR RHYTHM - GI/Abdominal Exam GI & Abdominal Exam: Normal Bowel Sounds Assessment and Plan - Assessment and Plan (Free Text) Assessment: DM, gastroparesis, opioid induced constipation Elevated WBC ??? GI and ID notes appreciated ABX and GI meds Falls, Unsteady Gait Neuro and Physiatry
[2016-09-13] MEDS: metroNIDAZOLE 500mg/100ml NS 100 ML IVPB SCH ×3 (00:27→16:51)
[2016-09-13 07:02] LABS: MEAN CELL VOLUME 76.7 fl (80.0-94.0); MEAN CORPUSCULAR HGB CONC 31.3 g/dL (33.0-37.0); RBC 4.56 Mil/uL (4.40-5.90); RED CELL DISTRIBUTION WIDTH 14.5 % (11.5-14.5); WHITE BLOOD COUNT 8.5 K/uL (4.8-10.8)
[2016-09-13 07:03] LABS: BLOOD UREA NITROGEN 11 mg/dl (9-20); CALCIUM 8.2 mg/dL (8.4-10.2); GFR AFRICAN-AMERICAN > 60; GFR NON-AFRICAN AMERICAN > 60
--- NOTE | 2016-09-13 07:05 | CP.PCM.PN ---
<Rima Martinez - Last Filed: 09/13/16 10:37> Subjective - Date & Time of Evaluation Date of Evaluation: 09/13/16 Time of Evaluation: 06:45 - Subjective Subjective: GI Fellow PGY4 Progress Note Pt seen and evaluated at bedside, reports feeling a little bit better this am. Pt says his diarrhea has slowed down and had only two episodes of loose stool overnight, less watery diarrhea and more formed, brown color, denies hematochezia or melena. Pt reports tolerating clear liquids and requesting diet advancement so can eat cheeseburger for lunch. Pt denies any fevers or chills at this time and abdominal bloating has improved since he is passing gas now. ROS: A 12pt ROS was obtained and was negative except as above. Objective - Vital Signs/Intake and Output Vital Signs (last 24 hours): Temp Pulse Resp BP Pulse Ox 98.8 F 68 20 116/72 98 09/13/16 00:47 09/13/16 00:47 09/13/16 00:47 09/13/16 00:47 09/13/16 00:47 Intake and Output: 09/13/16 09/13/16 06:59 18:59 Intake Total 1800 Balance 1800 - Medications Medications: Current Medications Acetaminophen (Tylenol 650mg/20.3ml Solution Ud) 650 mg PO Q4 PRN PRN Reason: Temperature Atenolol (Atenolol) 100 mg PO DAILY [facility] Last Admin: 09/12/16 09:10 Dose: 100 mg Hydromorphone HCl (Dilaudid) 4 mg PO Q6H PRN PRN Reason: Pain, severe (8-10) Metronidazole (Flagyl 500mg/100ml Ns) 100 mls @ 100 mls/hr IVPB Q8 [facility] Last Admin: 09/13/16 00:27 Dose: 100 mls/hr Piperacillin Sod/Tazobactam (Sod 3.375 gm/ Sodium Chloride) 100 mls @ 100 mls/ hr IVPB Q12 [facility] Last Admin: 09/12/16 21:10 Dose: 100 mls/hr Insulin Human Lispro (Humalog) 0 units SC ACHS [facility] Last Admin: 09/12/16 21:12 Dose: Not Given Lactic Acid (Lac-Hydrin 12% Lotion (225 G)) 1 applic TOP TID [facility] Last Admin: 09/12/16 18:19 Dose: 1 u Methadone HCl (Methadone) 15 mg PO BID [facility] Last Admin: 09/12/16 18:35 Dose: 15 mg Metoclopramide HCl (Reglan) 10 mg IVP Q6 PRN PRN Reason: Nausea/Vomiting Last Admin: 09/12/16 13:00 Dose: 10 mg Pantoprazole Sodium (Protonix Ec Tab) 40 mg PO DAILY [facility] Polyethylene Glycol (Miralax) 17 gm PO BID [facility] Pregabalin (Lyrica) 100 mg PO BID [facility] Last Admin: 09/12/16 18:36 Dose: 100 mg Sucralfate (Carafate Oral Susp) 1 gm PO ACHS [facility] Last Admin: 09/12/16 21:12 Dose: 1 gm - Labs Labs: 09/12/16 12:15 09/12/16 04:20 - Constitutional Appears: Well, Non-toxic, No Acute Distress - Head Exam Head Exam: ATRAUMATIC, NORMAL INSPECTION, NORMOCEPHALIC - Eye Exam Eye Exam: EOMI, Normal appearance, PERRL Pupil Exam: PERRL - ENT Exam ENT Exam: Mucous Membranes Moist, Normal Exam - Neck Exam Neck Exam: Full ROM, Normal Inspection - Respiratory Exam Respiratory Exam: Clear to Ausculation Bilateral, NORMAL BREATHING PATTERN. absent: Rales, Wheezes - Cardiovascular Exam Cardiovascular Exam: RRR, +S1, +S2 - GI/Abdominal Exam GI & Abdominal Exam: Soft, Normal Bowel Sounds. 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 1. Gastroparesis 2. Nausea and vomiting 3. Diarrhea 4. Diabetes 5. HTN 6. Anemia 7. Gastritis 8. Opioid Induced Constipation Plan: -Nausea and vomiting resolved pt requesting diet advancement-recommend starting full liquid diet and advance as tolerated to low fat, small frequent meals -Gastroparesis seen on recent EGD, continue tight glycemic control HgbA1c 7.7, continue Reglan 10mg with meals, will change to po from IV -Diarrhea improving, likely from IV abx, cdiff negative, waiting on further stool studies, recommend starting probiotic, hold miralax, and abx therapy per ID, no signs of leukocytosis, afebrile -Continue Sucralfate and PPI with recent EGD: small nonbleeding erosions in gastric body -No signs of active GI bleed, hemodynamicly stable, continue to monitor Hgb and supportive care -No plan for inpt endoscopic evaluation <Eamon Mac MD - Last Filed: 09/13/16 12:50> Objective - Vital Signs/Intake and Output Vital Signs (last 24 hours): Temp Pulse Resp BP Pulse Ox 99 F 79 18 114/78 98 09/13/16 08:50 09/13/16 08:50 09/13/16 08:50 09/13/16 08:50 09/13/16 08:50 Intake and Output: 09/13/16 09/13/16 06:59 18:59 Intake Total 1800 Balance 1800 - Medications Medications: Current Medications Acetaminophen (Tylenol 650mg/20.3ml Solution Ud) 650 mg PO Q4 PRN PRN Reason: Temperature Atenolol (Atenolol) 100 mg PO DAILY [facility] Last Admin: 09/13/16 08:58 Dose: 100 mg Hydromorphone HCl (Dilaudid) 4 mg PO Q6H PRN PRN Reason: Pain, severe (8-10) Metronidazole (Flagyl 500mg/100ml Ns) 100 mls @ 100 mls/hr IVPB Q8 [facility] Last Admin: 09/13/16 08:57 Dose: 100 mls/hr Piperacillin Sod/Tazobactam (Sod 3.375 gm/ Sodium Chloride) 100 mls @ 100 mls/ hr IVPB Q12 [facility] Last Admin: 09/13/16 08:57 Dose: 100 mls/hr Insulin Human Lispro (Humalog) 0 units SC ACHS [facility] Last Admin: 09/13/16 09:03 Dose: Not Given Lactic Acid (Lac-Hydrin 12% Lotion (225 G)) 1 applic TOP TID [facility] Last Admin: 09/13/16 09:03 Dose: 1 applic Methadone HCl (Methadone) 15 mg PO BID [facility] Last Admin: 09/13/16 10:54 Dose: 15 mg Metoclopramide HCl (Reglan) 10 mg PO ACHS [facility] Last Admin: 09/13/16 09:07 Dose: 10 mg Pantoprazole Sodium (Protonix Ec Tab) 40 mg PO DAILY [facility] Last Admin: 09/13/16 09:07 Dose: 40 mg Polyethylene Glycol (Miralax) 17 gm PO BID [facility] Last Admin: 09/13/16 09:04 Dose: Not Given Pregabalin (Lyrica) 100 mg PO BID [facility] Last Admin: 09/13/16 08:56 Dose: 100 mg Sucralfate (Carafate Oral Susp) 1 gm PO ACHS [facility] Last Admin: 09/13/16 09:00 Dose: 1 gm - Labs Labs: 09/13/16 05:45 09/13/16 05:45 Attending/Attestation - Attestation I have personally seen and examined this patient.: Yes I have fully participated in the care of the patient.: Yes I have reviewed all pertinent clinical information, including history, physical exam and plan: Yes Notes (Text): 09/13/16 12:47 Patient seen with Gi fellow on rounds. This is a 55 year old male with h/o DM, gastroparesis s/p EGD in Mar 2016 showing poor peristalsis, HTN, opioid induced constipation, diabetic foot ulcers, on methadone who presented to the ED with nausea and vomiting. Had recent EGD/ colonoscopy on 04/05/16. H pylori negative gastritis. Unknown source of leukocytosis now resolved. nausea and vomiting and diarrhea resolved. requesting cheesesburger. Advance diet as tolerated. H/Hct stable. No bloody episodes. PPi in am and carafate po q 6 hours. can be discharged from GI perspective. Will sign off now.
[2016-09-13] MEDS: Piperacillin/Tazobact 3.375 GM in Sodium Chloride 0.9% 100 ML IVPB SCH ×2 (08:57→21:56)
[2016-09-13] MEDS: ATENOLOL 100 MG TAB PO SCH (08:58)
--- NOTE | 2016-09-13 08:59 | CP.PCM.PN ---
Subjective - Date & Time of Evaluation Date of Evaluation: 09/13/16 Time of Evaluation: 08:20 - Subjective Subjective: NO CHEST PAIN OR SOB NO VOMITING OR DIARRHEA TODAY Objective - Vital Signs/Intake and Output Vital Signs (last 24 hours): Temp Pulse Resp BP Pulse Ox 99 F 79 18 114/78 98 09/13/16 08:50 09/13/16 08:50 09/13/16 08:50 09/13/16 08:50 09/13/16 08:50 Intake and Output: 09/13/16 09/13/16 06:59 18:59 Intake Total 1800 Balance 1800 - Medications Medications: Current Medications Acetaminophen (Tylenol 650mg/20.3ml Solution Ud) 650 mg PO Q4 PRN PRN Reason: Temperature Atenolol (Atenolol) 100 mg PO DAILY [facility] Last Admin: 09/12/16 09:10 Dose: 100 mg Hydromorphone HCl (Dilaudid) 4 mg PO Q6H PRN PRN Reason: Pain, severe (8-10) Metronidazole (Flagyl 500mg/100ml Ns) 100 mls @ 100 mls/hr IVPB Q8 [facility] Last Admin: 09/13/16 00:27 Dose: 100 mls/hr Piperacillin Sod/Tazobactam (Sod 3.375 gm/ Sodium Chloride) 100 mls @ 100 mls/ hr IVPB Q12 [facility] Last Admin: 09/12/16 21:10 Dose: 100 mls/hr Insulin Human Lispro (Humalog) 0 units SC [facility] Last Admin: 09/12/16 21:12 Dose: Not Given Lactic Acid (Lac-Hydrin 12% Lotion (225 G)) 1 applic TOP TID [facility] Last Admin: 09/12/16 18:19 Dose: 1 u Methadone HCl (Methadone) 15 mg PO BID [facility] Last Admin: 09/12/16 18:35 Dose: 15 mg Metoclopramide HCl (Reglan) 10 mg PO [facility] Pantoprazole Sodium (Protonix Ec Tab) 40 mg PO DAILY [facility] Polyethylene Glycol (Miralax) 17 gm PO BID [facility] Pregabalin (Lyrica) 100 mg PO BID [facility] Last Admin: 09/12/16 18:36 Dose: 100 mg Sucralfate (Carafate Oral Susp) 1 gm PO [facility] Last Admin: 09/12/16 21:12 Dose: 1 gm - Labs Labs: 09/13/16 05:45 09/13/16 05:45 - Respiratory Exam Respiratory Exam: Clear to Ausculation Bilateral - Cardiovascular Exam Cardiovascular Exam: REGULAR RHYTHM, +S1, +S2 - Additional Findings Additional findings: GI NOTE SEEN AND SHE DOESN'T BELIEVE THE PATIENT HAD A GI BLEED Assessment and Plan - Assessment and Plan (Free Text) Assessment: DM WITH GASTROPARESIS HYPERTENSION PAST HISTORY OF SVT Plan: CONTINUE ATENOLOL AND REGLAN
[2016-09-13] MEDS: Sucralfate 1 gm/10 ml Oral Susp UD PO SCH ×4 (09:00→21:56)
[2016-09-13] MEDS: Insulin Lispro (humaLOG) 100 Units/ml Inj SC SCH ×4 (09:03→21:57)
[2016-09-13] MEDS: POLYETHYLENE GLYCOL 3350 17 GM/Dose PACKET PO SCH ×2 (09:04→16:55)
[2016-09-13] MEDS: Pantoprazole 40 mg EC Tab PO SCH (09:07)
--- NOTE | 2016-09-13 14:13 | CP.PCM.PN ---
Subjective - Date & Time of Evaluation Date of Evaluation: 09/13/16 Time of Evaluation: 08:00 - Subjective Subjective: no fever less pain' abd soft distended Objective - Vital Signs/Intake and Output Vital Signs (last 24 hours): Temp Pulse Resp BP Pulse Ox 99 F 79 18 114/78 98 09/13/16 08:50 09/13/16 08:50 09/13/16 08:50 09/13/16 08:50 09/13/16 08:50 Intake and Output: 09/13/16 09/13/16 06:59 18:59 Intake Total 1800 Balance 1800 - Medications Medications: Current Medications Acetaminophen (Tylenol 650mg/20.3ml Solution Ud) 650 mg PO Q4 PRN PRN Reason: Temperature Atenolol (Atenolol) 100 mg PO DAILY [facility] Last Admin: 09/13/16 08:58 Dose: 100 mg Hydromorphone HCl (Dilaudid) 4 mg PO Q6H PRN PRN Reason: Pain, severe (8-10) Metronidazole (Flagyl 500mg/100ml Ns) 100 mls @ 100 mls/hr IVPB Q8 [facility] Last Admin: 09/13/16 08:57 Dose: 100 mls/hr Piperacillin Sod/Tazobactam (Sod 3.375 gm/ Sodium Chloride) 100 mls @ 100 mls/ hr IVPB Q12 [facility] Last Admin: 09/13/16 08:57 Dose: 100 mls/hr Insulin Human Lispro (Humalog) 0 units SC [facility] Last Admin: 09/13/16 13:10 Dose: Not Given Lactic Acid (Lac-Hydrin 12% Lotion (225 G)) 1 applic TOP TID [facility] Last Admin: 09/13/16 13:09 Dose: 1 applic Loperamide HCl (Imodium) 2 mg PO QID PRN PRN Reason: Diarrhea Methadone HCl (Methadone) 15 mg PO BID [facility] Last Admin: 09/13/16 10:54 Dose: 15 mg Metoclopramide HCl (Reglan) 10 mg PO ACHS [facility] Last Admin: 09/13/16 13:09 Dose: 10 mg Pantoprazole Sodium (Protonix Ec Tab) 40 mg PO DAILY [facility] Last Admin: 09/13/16 09:07 Dose: 40 mg Polyethylene Glycol (Miralax) 17 gm PO BID [facility] Last Admin: 09/13/16 09:04 Dose: Not Given Pregabalin (Lyrica) 100 mg PO BID [facility] Last Admin: 09/13/16 08:56 Dose: 100 mg Sucralfate (Carafate Oral Susp) 1 gm PO ACHS [facility] Last Admin: 09/13/16 13:06 Dose: 1 gm - Labs Labs: 09/13/16 05:45 09/13/16 05:45 - Constitutional Appears: Non-toxic, Chronically Ill - Head Exam Head Exam: NORMOCEPHALIC - Eye Exam Eye Exam: PERRL. absent: Scleral icterus - ENT Exam ENT Exam: Mucous Membranes Dry, Normal External Ear Exam - Neck Exam Neck Exam: absent: Lymphadenopathy - Respiratory Exam Respiratory Exam: Decreased Breath Sounds, Clear to Ausculation Bilateral - Cardiovascular Exam Cardiovascular Exam: REGULAR RHYTHM - GI/Abdominal Exam GI & Abdominal Exam: Distended, Soft - Rectal Exam Rectal Exam: Deferred - Exam Exam: NORMAL INSPECTION - Extremities Exam Extremities Exam: absent: Pedal Edema - Back Exam Back Exam: absent: CVA tenderness (L), CVA tenderness (R) - Neurological Exam Neurological Exam: Alert, Awake, Oriented x3 - Psychiatric Exam Psychiatric exam: Normal Mood - Skin Skin Exam: Dry Assessment and Plan (1) Abdominal pain Status: Acute (2) Acute kidney injury Status: Acute (3) DM2 (diabetes mellitus, type 2) Status: Acute (4) Dehydration Status: Acute (5) Diabetic foot infection Status: Acute (6) Neuropathic diabetic ulcer of foot Status: Acute
[2016-09-13 14:16] LABS: FECAL LEUKOCYTES NEGATIVE (NEGATIVE)
--- NOTE | 2016-09-13 18:55 | CP.PCM.PN ---
Subjective - Date & Time of Evaluation Date of Evaluation: 09/13/16 Time of Evaluation: 22:22 - Subjective Subjective: Improved Objective - Vital Signs/Intake and Output Vital Signs (last 24 hours): Temp Pulse Resp BP Pulse Ox 97.6 F 65 18 125/81 95 09/13/16 16:25 09/13/16 16:25 09/13/16 16:25 09/13/16 16:25 09/13/16 16:25 Intake and Output: 09/13/16 09/13/16 06:59 18:59 Intake Total 1800 Balance 1800 - Medications Medications: Current Medications Acetaminophen (Tylenol 650mg/20.3ml Solution Ud) 650 mg PO Q4 PRN PRN Reason: Temperature Atenolol (Atenolol) 100 mg PO DAILY [facility] Last Admin: 09/13/16 08:58 Dose: 100 mg Hydromorphone HCl (Dilaudid) 4 mg PO Q6H PRN PRN Reason: Pain, severe (8-10) Metronidazole (Flagyl 500mg/100ml Ns) 100 mls @ 100 mls/hr IVPB Q8 [facility] Last Admin: 09/13/16 16:51 Dose: 100 mls/hr Piperacillin Sod/Tazobactam (Sod 3.375 gm/ Sodium Chloride) 100 mls @ 100 mls/ hr IVPB Q12 [facility] Last Admin: 09/13/16 08:57 Dose: 100 mls/hr Insulin Human Lispro (Humalog) 0 units SC [facility] Last Admin: 09/13/16 16:49 Dose: Not Given Lactic Acid (Lac-Hydrin 12% Lotion (225 G)) 1 applic TOP TID [facility] Last Admin: 09/13/16 16:56 Dose: 1 applic Loperamide HCl (Imodium) 2 mg PO QID PRN PRN Reason: Diarrhea Last Admin: 09/13/16 16:49 Dose: 2 mg Methadone HCl (Methadone) 15 mg PO BID [facility] Last Admin: 09/13/16 16:48 Dose: 15 mg Metoclopramide HCl (Reglan) 10 mg PO ACHS [facility] Last Admin: 09/13/16 16:55 Dose: 10 mg Pantoprazole Sodium (Protonix Ec Tab) 40 mg PO DAILY [facility] Last Admin: 09/13/16 09:07 Dose: 40 mg Polyethylene Glycol (Miralax) 17 gm PO BID [facility] Last Admin: 09/13/16 16:55 Dose: Not Given Pregabalin (Lyrica) 100 mg PO BID [facility] Last Admin: 09/13/16 16:48 Dose: 100 mg Sucralfate (Carafate Oral Susp) 1 gm PO ACHS [facility] Last Admin: 09/13/16 16:46 Dose: 1 gm - Labs Labs: 09/13/16 05:45 09/13/16 05:45 - Respiratory Exam Respiratory Exam: NORMAL BREATHING PATTERN - Cardiovascular Exam Cardiovascular Exam: REGULAR RHYTHM - GI/Abdominal Exam GI & Abdominal Exam: Normal Bowel Sounds Assessment and Plan - Assessment and Plan (Free Text) Assessment: DM, gastroparesis, opioid induced constipation Elevated WBC ??? GI and ID notes appreciated ABX and GI meds Deconditioning PT Anemia Microcytic hypochromic ??
--- NOTE | 2016-09-13 20:38 | PN ---
ENDO-FOLLOWUP NOTE Room 656. SUBJECTIVE: This is a 55-year-old male with recent uncontrolled type 2 insulin requiring diabetes, presenting here with acute exacerbation of diabetic gastroparesis and is now being followed closely for metabolic management. His glycemic levels are fluctuated, but much improved at this time. He is actually using his Medtronic insulin pump, which gives him continuous insulin infusion as noted. His latest glucose levels today have ranged from 95 to 140 and 162 and 199 mg/dL. His latest chemistry showed a BUN of 11, sodium 136, potassium 3.6, chloride 104, CO2 27, glucose 112, and creatinine is 0.9. So at this time, we will allow the patient to self adjust his own basal and bolus insulin regimen using his Medtronic insulin pump due to his continuous insulin infusion as noted. We will obtain serial chemistries and supplement accordingly as needed. We will follow. Rizwana Raygoza MD
[2016-09-14] MEDS: metroNIDAZOLE 500mg/100ml NS 100 ML IVPB SCH ×3 (00:05→17:54)
[2016-09-14] MEDS: Insulin Lispro (humaLOG) 100 Units/ml Inj SC SCH ×4 (06:41→21:59)
[2016-09-14] MEDS: Sucralfate 1 gm/10 ml Oral Susp UD PO SCH ×4 (07:45→21:58)
[2016-09-14] MEDS: Piperacillin/Tazobact 3.375 GM in Sodium Chloride 0.9% 100 ML IVPB SCH ×2 (09:33→21:57)
[2016-09-14] MEDS: Pantoprazole 40 mg EC Tab PO SCH (09:37)
[2016-09-14] MEDS: POLYETHYLENE GLYCOL 3350 17 GM/Dose PACKET PO SCH ×2 (09:37→18:00)
[2016-09-14] MEDS: ATENOLOL 100 MG TAB PO SCH (09:37)
[2016-09-14 12:12] LABS: IRON 52 ug/dL (49-181)
[2016-09-14 12:21] LABS: % IRON SATURATION 20 % (20-55); TOTAL IRON BINDING CAPACITY 264 ug/dL (250-450)
--- NOTE | 2016-09-14 13:24 | CP.PCM.PN ---
Subjective - Date & Time of Evaluation Date of Evaluation: 09/14/16 Time of Evaluation: 12:15 - Subjective Subjective: DOING BETTER WITHOUT VOMITING OR DIARRHEA TODAY NO PALPITATIONS OR CHEST PAIN Objective - Vital Signs/Intake and Output Vital Signs (last 24 hours): Temp Pulse Resp BP Pulse Ox 98.9 F 82 18 128/81 97 09/14/16 08:09 09/14/16 09:37 09/14/16 08:09 09/14/16 09:37 09/14/16 08:09 - Medications Medications: Current Medications Acetaminophen (Tylenol 650mg/20.3ml Solution Ud) 650 mg PO Q4 PRN PRN Reason: Temperature Atenolol (Atenolol) 100 mg PO DAILY [facility] Last Admin: 09/14/16 09:37 Dose: 100 mg Hydromorphone HCl (Dilaudid) 4 mg PO Q6H PRN PRN Reason: Pain, severe (8-10) Metronidazole (Flagyl 500mg/100ml Ns) 100 mls @ 100 mls/hr IVPB Q8 [facility] Last Admin: 09/14/16 09:33 Dose: 100 mls/hr Piperacillin Sod/Tazobactam (Sod 3.375 gm/ Sodium Chloride) 100 mls @ 100 mls/ hr IVPB Q12 [facility] Last Admin: 09/14/16 09:33 Dose: 100 mls/hr Insulin Human Lispro (Humalog) 0 units SC ACHS [facility] Last Admin: 09/14/16 06:41 Dose: Not Given Lactic Acid (Lac-Hydrin 12% Lotion (225 G)) 1 applic TOP TID [facility] Last Admin: 09/14/16 09:40 Dose: 1 applic Loperamide HCl (Imodium) 2 mg PO QID PRN PRN Reason: Diarrhea Last Admin: 09/14/16 09:37 Dose: 2 mg Methadone HCl (Methadone) 15 mg PO BID [facility] Last Admin: 09/14/16 09:44 Dose: 15 mg Metoclopramide HCl (Reglan) 10 mg PO ACHS [facility] Last Admin: 09/14/16 07:45 Dose: 10 mg Pantoprazole Sodium (Protonix Ec Tab) 40 mg PO DAILY [facility] Last Admin: 09/14/16 09:37 Dose: 40 mg Polyethylene Glycol (Miralax) 17 gm PO BID [facility] Last Admin: 09/14/16 09:37 Dose: Not Given Pregabalin (Lyrica) 100 mg PO BID [facility] Last Admin: 09/14/16 09:44 Dose: 100 mg Sucralfate (Carafate Oral Susp) 1 gm PO ACHS [facility] Last Admin: 09/14/16 07:45 Dose: 1 gm - Labs Labs: 09/13/16 05:45 09/13/16 05:45 - Respiratory Exam Respiratory Exam: Clear to Ausculation Bilateral - Cardiovascular Exam Cardiovascular Exam: REGULAR RHYTHM, +S1, +S2 Assessment and Plan - Assessment and Plan (Free Text) Assessment: DM WITH GASTROPARESIS HYPERTENSION HISTORY OF SVT IN THE PAST Plan: CONTINUE ATENOLOL AND REGLAN
--- NOTE | 2016-09-14 17:11 | PN ---
DATE: ENDO FOLLOWUP NOTE LOCATION: Room 656. SUBJECTIVE: This is a 55-year-old male with recent uncontrolled type 2 insulin requiring diabetes, presenting here with intractable vomiting episodes related to the acute exacerbation of diabetic gastroparesis. He is using a Medtronic insulin pump, which gives him continuous insulin infusion as noted. LABORATORY DATA: His latest glycemic profile has improved and glucose values have ranged from 100 to 157 and 193 mg/dL. His latest chemistry showed a BUN of 11, sodium 136, potassium 3.6, chloride 102, CO2 of 27, glucose 120, and creatinine 0.9. ASSESSMENT AND PLAN: So, at this time, we will continue the Medtronic insulin pump which the patient uses at bedside and gives him the possibility of self-adjusting his own basal and bolus insulin dose regimen as indicated. We will obtain serial chemistries and supplement accordingly as needed. We will follow. Rizwana Raygoza MD
--- NOTE | 2016-09-14 19:47 | CP.PCM.PN ---
Subjective - Date & Time of Evaluation Date of Evaluation: 09/14/16 Time of Evaluation: 22:22 - Subjective Subjective: Cont to improve Objective - Vital Signs/Intake and Output Vital Signs (last 24 hours): Temp Pulse Resp BP Pulse Ox 98.3 F 71 18 100/63 100 09/14/16 16:35 09/14/16 16:35 09/14/16 16:35 09/14/16 16:35 09/14/16 16:35 - Medications Medications: Current Medications Acetaminophen (Tylenol 650mg/20.3ml Solution Ud) 650 mg PO Q4 PRN PRN Reason: Temperature Atenolol (Atenolol) 100 mg PO DAILY [facility] Last Admin: 09/14/16 09:37 Dose: 100 mg Hydromorphone HCl (Dilaudid) 4 mg PO Q6H PRN PRN Reason: Pain, severe (8-10) Metronidazole (Flagyl 500mg/100ml Ns) 100 mls @ 100 mls/hr IVPB Q8 [facility] Last Admin: 09/14/16 17:54 Dose: 100 mls/hr Piperacillin Sod/Tazobactam (Sod 3.375 gm/ Sodium Chloride) 100 mls @ 100 mls/ hr IVPB Q12 [facility] Last Admin: 09/14/16 09:33 Dose: 100 mls/hr Insulin Human Lispro (Humalog) 0 units SC ACHS [facility] Last Admin: 09/14/16 17:54 Dose: Not Given Lactic Acid (Lac-Hydrin 12% Lotion (225 G)) 1 applic TOP TID [facility] Last Admin: 09/14/16 17:55 Dose: 1 applic Loperamide HCl (Imodium) 2 mg PO QID PRN PRN Reason: Diarrhea Last Admin: 09/14/16 09:37 Dose: 2 mg Methadone HCl (Methadone) 15 mg PO BID [facility] Last Admin: 09/14/16 17:58 Dose: 15 mg Metoclopramide HCl (Reglan) 10 mg PO ACHS [facility] Last Admin: 09/14/16 16:00 Dose: 10 mg Pantoprazole Sodium (Protonix Ec Tab) 40 mg PO DAILY [facility] Last Admin: 09/14/16 09:37 Dose: 40 mg Polyethylene Glycol (Miralax) 17 gm PO BID [facility] Last Admin: 09/14/16 18:00 Dose: Not Given Pregabalin (Lyrica) 100 mg PO BID [facility] Last Admin: 09/14/16 17:58 Dose: 100 mg Sucralfate (Carafate Oral Susp) 1 gm PO ACHS [facility] Last Admin: 09/14/16 16:50 Dose: 1 gm - Labs Labs: 09/13/16 05:45 09/13/16 05:45 - Respiratory Exam Respiratory Exam: NORMAL BREATHING PATTERN - Cardiovascular Exam Cardiovascular Exam: REGULAR RHYTHM - GI/Abdominal Exam GI & Abdominal Exam: Normal Bowel Sounds Assessment and Plan - Assessment and Plan (Free Text) Assessment: DM, gastroparesis, opioid induced constipation Elevated WBC ??? GI and ID notes appreciated ABX and GI meds Deconditioning PT Anemia Microcytic hypochromic ?? + guaic w/u ordered
[2016-09-15] MEDS: metroNIDAZOLE 500mg/100ml NS 100 ML IVPB SCH ×3 (00:11→16:22)
[2016-09-15] MEDS: Insulin Lispro (humaLOG) 100 Units/ml Inj SC SCH ×2 (07:30→22:09)
[2016-09-15] MEDS: Piperacillin/Tazobact 3.375 GM in Sodium Chloride 0.9% 100 ML IVPB SCH (09:04)
[2016-09-15] MEDS: Sucralfate 1 gm/10 ml Oral Susp UD PO SCH ×4 (09:05→21:29)
[2016-09-15] MEDS: ATENOLOL 100 MG TAB PO SCH (09:05)
[2016-09-15] MEDS: Pantoprazole 40 mg EC Tab PO SCH (09:11)
[2016-09-15] MEDS: POLYETHYLENE GLYCOL 3350 17 GM/Dose PACKET PO SCH ×3 (09:11→16:43)
--- NOTE | 2016-09-15 12:23 | CP.PCM.PN ---
Subjective - Date & Time of Evaluation Date of Evaluation: 09/15/16 Time of Evaluation: 10:50 - Subjective Subjective: FEELING BETTER NO VOMITING OR DIARRHEA NO PALPITATIONS Objective - Vital Signs/Intake and Output Vital Signs (last 24 hours): Temp Pulse Resp BP Pulse Ox 98.4 F 80 20 131/80 95 09/15/16 09:23 09/15/16 09:23 09/15/16 09:23 09/15/16 09:23 09/15/16 09:23 - Medications Medications: Current Medications Acetaminophen (Tylenol 650mg/20.3ml Solution Ud) 650 mg PO Q4 PRN PRN Reason: Temperature Atenolol (Atenolol) 100 mg PO DAILY [facility] Last Admin: 09/15/16 09:05 Dose: 100 mg Hydromorphone HCl (Dilaudid) 4 mg PO Q6H PRN PRN Reason: Pain, severe (8-10) Metronidazole (Flagyl 500mg/100ml Ns) 100 mls @ 100 mls/hr IVPB Q8 [facility] Last Admin: 09/15/16 09:06 Dose: 100 mls/hr Insulin Human Lispro (Humalog) 0 units SC [facility] Last Admin: 09/15/16 07:30 Dose: Not Given Lactic Acid (Lac-Hydrin 12% Lotion (225 G)) 1 applic TOP TID [facility] Last Admin: 09/15/16 09:19 Dose: 1 applic Loperamide HCl (Imodium) 2 mg PO QID PRN PRN Reason: Diarrhea Last Admin: 09/15/16 05:23 Dose: 2 mg Methadone HCl (Methadone) 15 mg PO BID [facility] Last Admin: 09/15/16 09:09 Dose: 15 mg Metoclopramide HCl (Reglan) 10 mg PO [facility] Last Admin: 09/15/16 09:12 Dose: 10 mg Pantoprazole Sodium (Protonix Ec Tab) 40 mg PO DAILY [facility] Last Admin: 09/15/16 09:11 Dose: 40 mg Polyethylene Glycol (Miralax) 17 gm PO BID [facility] Last Admin: 09/15/16 09:16 Dose: Not Given Pregabalin (Lyrica) 100 mg PO BID [facility] Last Admin: 09/15/16 09:09 Dose: 100 mg Sucralfate (Carafate Oral Susp) 1 gm PO [facility] Last Admin: 09/15/16 09:05 Dose: 1 gm - Labs Labs: 09/13/16 05:45 09/13/16 05:45 - Respiratory Exam Respiratory Exam: Clear to Ausculation Bilateral - Cardiovascular Exam Cardiovascular Exam: REGULAR RHYTHM, +S1, +S2 Assessment and Plan - Assessment and Plan (Free Text) Assessment: DM WITH GASTROPARESIS HYPERTENSION HISTORY OF PAST SVT EPISODES Plan: CONTINUE ATENOLOL, REGLAN AND ANTIBIOTICS
--- NOTE | 2016-09-15 12:41 | CP.PCM.PN ---
Subjective - Date & Time of Evaluation Date of Evaluation: 09/15/16 Time of Evaluation: 08:00 - Subjective Subjective: less diarrhea no fever pain less IV rx renewed all cultures neg Objective - Vital Signs/Intake and Output Vital Signs (last 24 hours): Temp Pulse Resp BP Pulse Ox 98.4 F 80 20 131/80 95 09/15/16 09:23 09/15/16 09:23 09/15/16 09:23 09/15/16 09:23 09/15/16 09:23 - Medications Medications: Current Medications Acetaminophen (Tylenol 650mg/20.3ml Solution Ud) 650 mg PO Q4 PRN PRN Reason: Temperature Atenolol (Atenolol) 100 mg PO DAILY [facility] Last Admin: 09/15/16 09:05 Dose: 100 mg Hydromorphone HCl (Dilaudid) 4 mg PO Q6H PRN PRN Reason: Pain, severe (8-10) Metronidazole (Flagyl 500mg/100ml Ns) 100 mls @ 100 mls/hr IVPB Q8 [facility] Last Admin: 09/15/16 09:06 Dose: 100 mls/hr Insulin Human Lispro (Humalog) 0 units SC [facility] Last Admin: 09/15/16 07:30 Dose: Not Given Lactic Acid (Lac-Hydrin 12% Lotion (225 G)) 1 applic TOP TID [facility] Last Admin: 09/15/16 09:19 Dose: 1 applic Loperamide HCl (Imodium) 2 mg PO QID PRN PRN Reason: Diarrhea Last Admin: 09/15/16 05:23 Dose: 2 mg Methadone HCl (Methadone) 15 mg PO BID [facility] Last Admin: 09/15/16 09:09 Dose: 15 mg Metoclopramide HCl (Reglan) 10 mg PO [facility] Last Admin: 09/15/16 09:12 Dose: 10 mg Pantoprazole Sodium (Protonix Ec Tab) 40 mg PO DAILY [facility] Last Admin: 09/15/16 09:11 Dose: 40 mg Polyethylene Glycol (Miralax) 17 gm PO BID [facility] Last Admin: 09/15/16 09:16 Dose: Not Given Pregabalin (Lyrica) 100 mg PO BID [facility] Last Admin: 09/15/16 09:09 Dose: 100 mg Sucralfate (Carafate Oral Susp) 1 gm PO [facility] Last Admin: 09/15/16 09:05 Dose: 1 gm - Labs Labs: 09/13/16 05:45 09/13/16 05:45 - Constitutional Appears: Non-toxic - Head Exam Head Exam: NORMOCEPHALIC - Eye Exam Eye Exam: PERRL - ENT Exam ENT Exam: Mucous Membranes Dry - Neck Exam Neck Exam: absent: Lymphadenopathy - Respiratory Exam Respiratory Exam: Decreased Breath Sounds, Clear to Ausculation Bilateral - Cardiovascular Exam Cardiovascular Exam: REGULAR RHYTHM - GI/Abdominal Exam GI & Abdominal Exam: Distended, Soft - Rectal Exam Rectal Exam: Deferred - Exam Exam: NORMAL INSPECTION - Extremities Exam Extremities Exam: absent: Pedal Edema - Back Exam Back Exam: absent: CVA tenderness (L), CVA tenderness (R) - Neurological Exam Neurological Exam: Alert, Awake, Oriented x3 - Psychiatric Exam Psychiatric exam: Normal Mood - Skin Skin Exam: Dry Assessment and Plan (1) Abdominal pain Status: Acute (2) Acute kidney injury Status: Acute (3) DM2 (diabetes mellitus, type 2) Status: Acute (4) Dehydration Status: Acute (5) Diabetic foot infection Status: Acute (6) Neuropathic diabetic ulcer of foot Status: Acute - Assessment and Plan (Free Text) Assessment: to compl;ete iv rx in am GI follow up aas out pt for colonoscopy/egd
[2016-09-15] MEDS ORDERED: Insulin Lispro (humaLOG) 100 Units/ml Inj SC SCH (13:43)
--- NOTE | 2016-09-15 14:07 | PN ---
ENDO-FOLLOWUP NOTE Room 656. SUBJECTIVE: This is a 65-year-old male admitted with acute exacerbation of diabetic gastroparesis with intractable vomiting episodes and upper abdominal pain and he is now being followed closely for metabolic management. His glycemic values are fluctuating, but improved. He is currently using Medtronic insulin pump as noticed. His latest chemistries showed BUN of 11, sodium 136, potassium 3.6, chloride 102, CO2 of 27, glucose 120, and creatinine 0.9. His glucose values today have ranged from 129 to 145 and 235 mg/dL. So at this time, we will allow the patient to self adjust his basal and bolus insulin dose regimen using his Medtronic insulin pump as noted. We will obtain history of chemistries and supplement accordingly as needed. We will follow. Rizwana Raygoza MD
--- NOTE | 2016-09-15 15:42 | CP.PCM.PN ---
Subjective - Date & Time of Evaluation Date of Evaluation: 09/15/16 Time of Evaluation: 22:22 - Subjective Subjective: Above noted Objective - Vital Signs/Intake and Output Vital Signs (last 24 hours): Temp Pulse Resp BP Pulse Ox 98.4 F 80 20 131/80 95 09/15/16 09:23 09/15/16 09:23 09/15/16 09:23 09/15/16 09:23 09/15/16 09:23 - Medications Medications: Current Medications Acetaminophen (Tylenol 650mg/20.3ml Solution Ud) 650 mg PO Q4 PRN PRN Reason: Temperature Atenolol (Atenolol) 100 mg PO DAILY [facility] Last Admin: 09/15/16 09:05 Dose: 100 mg Hydromorphone HCl (Dilaudid) 4 mg PO Q6H PRN PRN Reason: Pain, severe (8-10) Metronidazole (Flagyl 500mg/100ml Ns) 100 mls @ 100 mls/hr IVPB Q8 [facility] Last Admin: 09/15/16 09:06 Dose: 100 mls/hr Insulin Human Lispro (Humalog) 0 units SC [facility] PRN Reason: Protocol Lactic Acid (Lac-Hydrin 12% Lotion (225 G)) 1 applic TOP TID [facility] Last Admin: 09/15/16 09:19 Dose: 1 applic Loperamide HCl (Imodium) 2 mg PO QID PRN PRN Reason: Diarrhea Last Admin: 09/15/16 05:23 Dose: 2 mg Methadone HCl (Methadone) 15 mg PO BID [facility] Last Admin: 09/15/16 09:09 Dose: 15 mg Metoclopramide HCl (Reglan) 10 mg PO [facility] Last Admin: 09/15/16 09:12 Dose: 10 mg Pantoprazole Sodium (Protonix Ec Tab) 40 mg PO DAILY [facility] Last Admin: 09/15/16 09:11 Dose: 40 mg Polyethylene Glycol (Miralax) 17 gm PO BID [facility] Last Admin: 09/15/16 09:16 Dose: Not Given Pregabalin (Lyrica) 100 mg PO BID [facility] Last Admin: 09/15/16 09:09 Dose: 100 mg Sucralfate (Carafate Oral Susp) 1 gm PO [facility] Last Admin: 09/15/16 09:05 Dose: 1 gm - Labs Labs: 09/13/16 05:45 09/13/16 05:45 - Respiratory Exam Respiratory Exam: NORMAL BREATHING PATTERN - Cardiovascular Exam Cardiovascular Exam: REGULAR RHYTHM - GI/Abdominal Exam GI & Abdominal Exam: Normal Bowel Sounds Assessment and Plan - Assessment and Plan (Free Text) Assessment: DM, gastroparesis, opioid induced constipation Elevated WBC ??? GI and ID notes appreciated ABX and GI meds Deconditioning PT Anemia Microcytic hypochromic ?? + guaic w/u negative Needs f/u with GI
[2016-09-16] MEDS: metroNIDAZOLE 500mg/100ml NS 100 ML IVPB SCH ×3 (00:03→16:34)
[2016-09-16] MEDS: Insulin Lispro (humaLOG) 100 Units/ml Inj SC SCH ×3 (07:12→16:11)
[2016-09-16 07:15] LABS: BASO # 0.1 K/uL (0.0-0.2); BASO % 0.9 % (0.0-2.0); EOS # 0.4 K/uL (0.0-0.7); EOS % 4.9 % (0.0-4.0); HEMOGLOBIN 11.1 g/dL (12.0-18.0); LYMPH # 2.6 K/uL (1.0-4.3); LYMPH % 28.7 % (20.0-40.0); MEAN CELL VOLUME 76.1 fl (80.0-94.0); MEAN CORPUSCULAR HEMOGLOBIN 24.6 pg (27.0-31.0); MEAN CORPUSCULAR HGB CONC 32.3 g/dL (33.0-37.0); MEAN PLATELET VOLUME 9.2 fl (7.2-11.7); MONO # 1.1 K/uL (0.0-0.8); MONO % 12.1 % (0.0-10.0); NEUT # 4.9 K/uL (1.8-7.0); NEUT % 53.4 % (50.0-75.0); NRBC % 0.1 % (0.0-0.0); RBC 4.51 Mil/uL (4.40-5.90); RED CELL DISTRIBUTION WIDTH 15.1 % (11.5-14.5); WHITE BLOOD COUNT 9.1 K/uL (4.8-10.8)
[2016-09-16 07:30] LABS: ALB/GLOB RATIO 1.3 (1.0-2.1); ALBUMIN 3.3 g/dL (3.5-5.0); ALT/SGPT 32 U/L (21-72); AST/SGOT 20 U/L (17-59); BLOOD UREA NITROGEN 7 mg/dl (9-20); CALCIUM 8.3 mg/dL (8.4-10.2); GFR AFRICAN-AMERICAN > 60; GFR NON-AFRICAN AMERICAN > 60
[2016-09-16] MEDS: ATENOLOL 100 MG TAB PO SCH (08:18)
[2016-09-16] MEDS: Sucralfate 1 gm/10 ml Oral Susp UD PO SCH ×3 (08:18→16:32)
[2016-09-16] MEDS: POLYETHYLENE GLYCOL 3350 17 GM/Dose PACKET PO SCH ×2 (08:19→16:35)
[2016-09-16] MEDS: Pantoprazole 40 mg EC Tab PO SCH (08:19)
--- NOTE | 2016-09-16 10:40 | CP.PCM.PN ---
Subjective - Date & Time of Evaluation Date of Evaluation: 09/16/16 Time of Evaluation: 08:20 - Subjective Subjective: FEELS BETTER NO CHEST PAIN OR PALPITATIONS Objective - Vital Signs/Intake and Output Vital Signs (last 24 hours): Temp Pulse Resp BP Pulse Ox 98.6 F 74 20 134/88 96 09/16/16 07:43 09/16/16 07:43 09/16/16 07:43 09/16/16 07:43 09/16/16 07:43 - Medications Medications: Current Medications Acetaminophen (Tylenol 650mg/20.3ml Solution Ud) 650 mg PO Q4 PRN PRN Reason: Temperature Atenolol (Atenolol) 100 mg PO DAILY [facility] Last Admin: 09/16/16 08:18 Dose: 100 mg Hydromorphone HCl (Dilaudid) 4 mg PO Q6H PRN PRN Reason: Pain, severe (8-10) Metronidazole (Flagyl 500mg/100ml Ns) 100 mls @ 100 mls/hr IVPB Q8 [facility] Last Admin: 09/16/16 08:20 Dose: 100 mls/hr Insulin Human Lispro (Humalog) 0 units SC [facility] PRN Reason: Protocol Last Admin: 09/16/16 07:12 Dose: Not Given Lactic Acid (Lac-Hydrin 12% Lotion (225 G)) 1 applic TOP TID [facility] Last Admin: 09/16/16 08:20 Dose: 1 applic Loperamide HCl (Imodium) 2 mg PO QID PRN PRN Reason: Diarrhea Last Admin: 09/15/16 21:29 Dose: 2 mg Methadone HCl (Methadone) 15 mg PO BID [facility] Last Admin: 09/16/16 08:19 Dose: 15 mg Metoclopramide HCl (Reglan) 10 mg PO [facility] Last Admin: 09/16/16 08:20 Dose: 10 mg Pantoprazole Sodium (Protonix Ec Tab) 40 mg PO DAILY [facility] Last Admin: 09/16/16 08:19 Dose: 40 mg Polyethylene Glycol (Miralax) 17 gm PO BID [facility] Last Admin: 09/16/16 08:19 Dose: Not Given Pregabalin (Lyrica) 100 mg PO BID [facility] Last Admin: 09/16/16 08:18 Dose: 100 mg Sucralfate (Carafate Oral Susp) 1 gm PO [facility] Last Admin: 09/16/16 08:18 Dose: 1 gm - Labs Labs: 09/16/16 06:30 09/16/16 06:30 - Respiratory Exam Respiratory Exam: Clear to Ausculation Bilateral - Cardiovascular Exam Cardiovascular Exam: REGULAR RHYTHM Assessment and Plan - Assessment and Plan (Free Text) Assessment: DM WITH GASTROPARESIS HYPERTENSION HISTORY OF SVT IN THE PAST Plan: CONTINUE ATENOLOL AND REGLAN
[2016-09-16 16:02] VITALS: BP 115/74; PULSE 83; RESP 18; TEMP 98.7; O2SAT 98
--- NOTE | 2016-09-16 17:50 | PN ---
DATE: ROOM: 656 SUBJECTIVE: This is a 55-year-old male with recent uncontrolled type 2 insulin requiring diabetes, now being followed closely for metabolic management. He has an ongoing Medtronic insulin pump, which he was using as inpatient on this admission, but apparently, he run out of supplies and so last night he was switched over to a low dose correction scale using Humalog insulin as given. His glycemic levels are fluctuating, but improved and the latest glucose levels have ranged from 147 to 244 mg/dL. It was 139 pre-breakfast this morning and 147 at bedtime last night. LABORATORY DATA: His latest chemistries showed BUN of 7, sodium 147, potassium 3.9, chloride 103, CO2 27, glucose 129, and creatinine 0.9. PLAN: So at this time, we will continue the low dose correct scale using Humalog insulin given every before meals and at bedtime as ordered. If hyperglycemic level supervene, then we will start and add basal insulin given overnight as indicated. We will follow and advice accordingly. Rizwana Raygoza MD
--- NOTE | 2016-09-16 18:18 | CP.PCM.PN ---
Subjective - Date & Time of Evaluation Date of Evaluation: 09/16/16 Time of Evaluation: 22:22 - Subjective Subjective: Above noted Objective - Vital Signs/Intake and Output Vital Signs (last 24 hours): Temp Pulse Resp BP Pulse Ox 98.7 F 83 18 115/74 98 09/16/16 16:01 09/16/16 16:01 09/16/16 16:01 09/16/16 16:01 09/16/16 16:01 - Medications Medications: Current Medications Acetaminophen (Tylenol 650mg/20.3ml Solution Ud) 650 mg PO Q4 PRN PRN Reason: Temperature Atenolol (Atenolol) 100 mg PO DAILY [facility] Last Admin: 09/16/16 08:18 Dose: 100 mg Hydromorphone HCl (Dilaudid) 4 mg PO Q6H PRN PRN Reason: Pain, severe (8-10) Metronidazole (Flagyl 500mg/100ml Ns) 100 mls @ 100 mls/hr IVPB Q8 [facility] Last Admin: 09/16/16 16:34 Dose: Not Given Insulin Human Lispro (Humalog) 0 units SC [facility] PRN Reason: Protocol Last Admin: 09/16/16 16:11 Dose: Not Given Lactic Acid (Lac-Hydrin 12% Lotion (225 G)) 1 applic TOP TID [facility] Last Admin: 09/16/16 16:32 Dose: 1 applic Loperamide HCl (Imodium) 2 mg PO QID PRN PRN Reason: Diarrhea Last Admin: 09/15/16 21:29 Dose: 2 mg Methadone HCl (Methadone) 15 mg PO BID [facility] Last Admin: 09/16/16 16:31 Dose: 15 mg Metoclopramide HCl (Reglan) 10 mg PO [facility] Last Admin: 09/16/16 16:33 Dose: 10 mg Pantoprazole Sodium (Protonix Ec Tab) 40 mg PO DAILY [facility] Last Admin: 09/16/16 08:19 Dose: 40 mg Polyethylene Glycol (Miralax) 17 gm PO BID [facility] Last Admin: 09/16/16 16:35 Dose: Not Given Pregabalin (Lyrica) 100 mg PO BID [facility] Last Admin: 09/16/16 16:31 Dose: 100 mg Sucralfate (Carafate Oral Susp) 1 gm PO [facility] Last Admin: 09/16/16 16:32 Dose: 1 gm - Labs Labs: 09/16/16 06:30 09/16/16 06:30 - Respiratory Exam Respiratory Exam: Wheezes - Cardiovascular Exam Cardiovascular Exam: REGULAR RHYTHM - GI/Abdominal Exam GI & Abdominal Exam: Normal Bowel Sounds Assessment and Plan - Assessment and Plan (Free Text) Assessment: DM, gastroparesis, opioid induced constipation Elevated WBC ??? GI and ID notes appreciated ABX and GI meds Deconditioning PT Anemia Microcytic hypochromic ?? + guaic w/u negative Needs f/u with GI
== END 2016-09-16 18:49 | DRG 74 ==
LOC: H.ER 12:02 → H.ERHOLD 17:52 → H.MEDSURG1 09-10 00:35 → OBSVTOIN 09-10 10:48 → H.MEDSURG1 09-10 17:19
PROVIDERS: ADMIT Family Medicine Geriatric Medicine; ATTEND Family Medicine Geriatric Medicine
DX: E11.43 Type 2 diabetes mellitus with diabetic autonomic (poly)neuropathy (principal); N17.9 Acute kidney failure, unspecified; E11.51 Type 2 diabetes mellitus with diabetic peripheral angiopathy without gangrene; E11.621 Type 2 diabetes mellitus with foot ulcer; I47.1 Supraventricular tachycardia; E11.65 Type 2 diabetes mellitus with hyperglycemia; K92.1 Melena; L97.529 Non-pressure chronic ulcer of other part of left foot with unspecified severity; D64.9 Anemia, unspecified; D72.829 Elevated white blood cell count, unspecified; E11.319 Type 2 diabetes mellitus with unspecified diabetic retinopathy without macular edema; E11.42 Type 2 diabetes mellitus with diabetic polyneuropathy; E86.0 Dehydration; I10 Essential (primary) hypertension; I25.10 Atherosclerotic heart disease of native coronary artery without angina pectoris; K29.70 Gastritis, unspecified, without bleeding; K31.84 Gastroparesis; K59.03 Drug induced constipation; T40.2X5A Adverse effect of other opioids, initial encounter; L08.9 Local infection of the skin and subcutaneous tissue, unspecified; Z79.4 Long term (current) use of insulin; Z83.3 Family history of diabetes mellitus; Z87.01 Personal history of pneumonia (recurrent); Z87.891 Personal history of nicotine dependence; Z96.41 Presence of insulin pump (external) (internal); J40 Bronchitis, not specified as acute or chronic; K30 Functional dyspepsia; R26.81 Unsteadiness on feet

== ENCOUNTER 2017-06-20 13:42 | Observation (INO) | payer MEDICARE, BC ==
[2017-06-20 13:43] VITALS: BMI 23.9
--- NOTE | 2017-06-20 14:15 | ED PDOC ---
HPI: Abdomen Chief Complaint (Provider): Abdominal Pain History Per: Patient History/Exam Limitations: no limitations Onset/Duration Of Symptoms: Days (2) Outside of [place] travel?: No Current Symptoms Are (Timing): Still Present Context: Other (gastroparesis) Location Of Pain/Discomfort: Diffuse Quality Of Discomfort: Unable To Describe, Dull Associated Symptoms: Nausea, Vomiting, Loss Of Appetite <Josh Downing - Last Filed: 06/20/17 19:19> <Oscar Heller - Last Filed: 06/20/17 20:39> Time Seen by Provider: 06/20/17 14:00 Chief Complaint (Nursing): Chest Pain Past Medical History - Medical History PMH: Bronchitis, Diabetes (type I, insulin pump), HTN, Pneumonia Denies: CAD, HIV, Chronic Kidney Disease - Surgical History Surgical History: Tonsillectomy - Family History Family History: States: Diabetes (grandparents), Hypertension (grandparents) <Josh Downing - Last Filed: 06/20/17 19:19> <Oscar Heller - Last Filed: 06/20/17 20:39> Vital Signs: Last Vital Signs Temp 98.0 F 06/20/17 20:23 Pulse 82 06/20/17 20:23 Resp 16 06/20/17 20:23 BP 142/79 06/20/17 20:23 Pulse Ox 98 06/20/17 20:23 - Home Medications Home Medications: Ambulatory Orders Medication Instructions Recorded HYDROmorphone [Dilaudid] 4 mg PO Q4 08/25/15 Methadone 5 mg PO Q8 PRN 08/25/15 Pregabalin [Lyrica] 100 mg PO BID 08/25/15 Ammonium Lactate 12% [Lac-Hydrin 1 applic TOP TID #1 bottle 09/16/16 12% Lotion (225 g)] DULoxetine [Cymbalta] 60 mg PO DAILY 06/20/17 Hydrocodone/Acetaminophen [Clarkson 1 tab PO Q6 PRN 06/20/17 325 mg-5 mg] Insulin Lispro [Humalog (Insulin 60 unit SQ DAILY 06/20/17 Lispro)] Methadone [Methadone HCl] 10 mg PO BID 06/20/17 Metoclopramide [Reglan] 10 mg PO TID 06/20/17 Rosuvastatin Calcium [Crestor] 10 mg PO HS 06/20/17 - Allergies Allergies/Adverse Reactions: Allergies Allergy/AdvReac Type Severity Reaction Status Date / Time iodine Allergy RASH Verified 09/09/16 12:09 peanut Allergy RASH Verified 06/20/17 13:49 shellfish derived Allergy RASH Verified 09/09/16 12:09 Review of Systems ROS Statement: Except As Marked, All Systems Reviewed And Found Negative Gastrointestinal: Positive for: Nausea, Vomiting <Josh Downing - Last Filed: 06/20/17 19:19> Physical Exam - Reviewed Nursing Documentation Reviewed: Yes Vital Signs Reviewed: Yes - Physical Exam Appears: Positive for: Uncomfortable, In Acute Distress Head Exam: Positive for: ATRAUMATIC, NORMAL INSPECTION, NORMOCEPHALIC Skin: Positive for: Normal Color, Diaphoresis Neck: Positive for: Normal, Painless ROM, Supple, Decreased ROM Cardiovascular/Chest: Positive for: Regular Rate, Rhythm, Chest Non Tender. Negative for: Edema, Gallop, Murmur, Bradycardia, Tachycardia, Friction Rub, Irregularly Irregular Respiratory: Positive for: Normal Breath Sounds. Negative for: Crackles, Rales , Rhonchi, Wheezing, Respiratory Distress, Plerual Rub Pulses-Carotid (L): 2+ Pulses-Carotid (R): 2+ Pulses-Radial (L): 2+ Pulses-Radial (R): 2+ Gastrointestinal/Abdominal: Positive for: Bowel Sounds (reduced), Soft, Tenderness. Negative for: Guarding, Rebound, Asicites <Josh Downing - Last Filed: 06/20/17 19:19> - Laboratory Results Result Diagrams: 06/20/17 14:58 06/20/17 15:19 - ECG O2 Sat by Pulse Oximetry: 100 <Josh Downing - Last Filed: 06/20/17 19:19> - Laboratory Results Result Diagrams: 06/20/17 14:58 06/20/17 15:19 <Oscar Heller - Last Filed: 06/20/17 20:39> Disposition - Patient ED Disposition Is Patient to be Admitted: Yes Discussed With : Faisal Gomez Doctor Will See Patient In The: Hospital Counseled Patient/Family Regarding: Studies Performed, Diagnosis, Need For Followup - Disposition Disposition Time: 19:17 - Pt Status Changed To: Hospital Disposition Of: Inpatient - Admit Certification Admit to Inpatient:: After my assessment, the patient will require hospitalization for at least two midnights. This is because of the severity of symptoms shown, intensity of services needed, and/or the medical risk in this patient being treated as an outpatient. <Josh Downing - Last Filed: 06/20/17 19:19> <Oscar Heller - Last Filed: 06/20/17 20:39> - Clinical Impression Clinical Impression: Intractable vomiting with nausea, Gastroparesis due to DM - Disposition Condition: STABLE ED Additional Note <Josh Downing - Last Filed: 06/20/17 19:19> <Oscar Heller - Last Filed: 06/20/17 20:39> - Physician Additional Note Physician Additional Note: 2036 Case d/w Dr. Metzger, covering for Dr. Mac, and she will see patient in hospital. (Oscar Heller)
[2017-06-20] MEDS ORDERED: Barium Sulfate Susp 2.1% w/v, 2.0% w/w 450 mL Bottle PO ONE ×3 (14:30→14:33)
[2017-06-20] MEDS ORDERED: Sodium Chloride 0.9% 1,000 ML IV SCH (14:45)
[2017-06-20 15:32] LABS: ALB/GLOB RATIO 1.2 (1.0-2.1); ALBUMIN 4.4 g/dL (3.5-5.0); ALT/SGPT 36 U/L (21-72); AST/SGOT 30 U/L (17-59); BLOOD UREA NITROGEN 22 mg/dl (9-20); CALCIUM 9.5 mg/dL (8.4-10.2); GFR AFRICAN-AMERICAN > 60; GFR NON-AFRICAN AMERICAN > 60; LIPASE 62 U/L (23-300)
[2017-06-20 15:52] LABS: URINE BILIRUBIN NEGATIVE (NEGATIVE); URINE BLOOD NEGATIVE (NEGATIVE); URINE CLARITY CLEAR (Clear); URINE COLOR STRAW (YELLOW); URINE GLUCOSE (UA) >=500 mg/dL (Normal); URINE LEUKOCYTE ESTERASE NEG Leu/uL (Negative); URINE PROTEIN NEGATIVE (NEGATIVE); URINE UROBILINOGEN 0.2-1.0 mg/dL (0.2-1.0)
[2017-06-20 16:07] LABS: BASO % 0.1 % (0.0-2.0); HEMOGLOBIN 13.7 g/dL (12.0-18.0); LYMPH % 6.9 % (20.0-40.0); MEAN CELL VOLUME 73.7 fl (80.0-94.0); MEAN CORPUSCULAR HEMOGLOBIN 23.5 pg (27.0-31.0); MEAN CORPUSCULAR HGB CONC 31.9 g/dL (33.0-37.0); MEAN PLATELET VOLUME 9.5 fl (7.2-11.7); MONO # 0.7 K/uL (0.0-0.8); MONO % 4.9 % (0.0-10.0); NEUT # 12.3 K/uL (1.8-7.0); NEUT % 88.1 % (50.0-75.0); NRBC % 0.1 % (0.0-0.0); PLATELET COUNT 369 K/uL (130-400); RBC 5.83 Mil/uL (4.40-5.90); RED CELL DISTRIBUTION WIDTH 14.7 % (11.5-14.5); WHITE BLOOD COUNT 13.9 K/uL (4.8-10.8)
[2017-06-20 16:30] LABS: LYMPHOCYTE 7 % (20-50); MONOCYTE 4 % (0-10); NEUTROPHIL 82 % (42-75); REACTIVE LYMPHOCYTES 7 % (0-0); TOTAL CELLS COUNTED 100
[2017-06-20 16:31] LABS: HYPOCHROMIC SLIGHT; TARGET CELLS SLIGHT
[2017-06-20 16:32] LABS: STOMATOCYTES SLIGHT
[2017-06-20 16:33] LABS: GIANT PLATELETS PRESENT; LARGE PLATELETS PRESENT; MICROCYTOSIS SLIGHT; PLATELET ESTIMATE NORMAL (NORMAL)
--- NOTE | 2017-06-20 17:04 | CT ---
PROCEDURE: CT Abdomen and Pelvis with contrast HISTORY: Vomiting COMPARISON: 09/09/2016 CT abdomen and pelvis. 06/17/2015 TECHNIQUE: Oral contrast only. Radiation dose: Total exam DLP = 531.92 mGy-cm. This CT exam was performed using one or more of the following dose reduction techniques: Automated exposure control, adjustment of the mA and/or kV according to patient size, and/or use of iterative reconstruction technique. FINDINGS: LOWER THORAX: Stable thickening of the distal esophagus without focal lesion. LIVER: Unremarkable. No gross lesion or ductal dilatation. GALLBLADDER AND BILE DUCTS: Unremarkable. PANCREAS: Unremarkable. No gross lesion or ductal dilatation. SPLEEN: Unremarkable. ADRENALS: Unremarkable. No mass. KIDNEYS AND URETERS: Unremarkable. No hydronephrosis. No solid mass. VASCULATURE: Unremarkable. No aortic aneurysm. BOWEL: Diverticulosis without an acute inflammatory component or other associated pathologic process. Stable thickening of the wall of the stomach and duodenum. APPENDIX: Normal appendix. PERITONEUM: Unremarkable. No free fluid. No free air. LYMPH NODES: Unremarkable. No enlarged lymph nodes. BLADDER: Unremarkable. REPRODUCTIVE: Unremarkable. BONES: No acute fracture. Stable compression deformity/Schmorl's node L2 vertebral body. OTHER FINDINGS: None. IMPRESSION: No acute findings related to/accounting for the clinical presentation. No significant interval change compared to the prior examination(s). Additional benign and/or incidental findings described above.
--- NOTE | 2017-06-20 18:47 | CP.PCM.PN ---
Subjective - Date & Time of Evaluation Date of Evaluation: 06/20/17 Time of Evaluation: 22:22 - Subjective Subjective: %6 yo with hx of diabetic gastroparesis presented to the ER with vomiting nad GI upset Objective - Vital Signs/Intake and Output Vital Signs (last 24 hours): Temp Pulse Resp BP Pulse Ox 97 F L 87 19 150/85 98 06/20/17 17:42 06/20/17 17:42 06/20/17 17:42 06/20/17 17:42 06/20/17 17:42 - Medications Medications: Current Medications Sodium Chloride (Sodium Chloride 0.9%) 1,000 mls @ 1,000 mls/hr IV .Q1H [facility] Stop: 06/21/17 14:36 Last Admin: 06/20/17 15:04 Dose: 1,000 mls/hr - Labs Labs: 06/20/17 14:58 06/20/17 15:19 - Respiratory Exam Respiratory Exam: NORMAL BREATHING PATTERN - Cardiovascular Exam Cardiovascular Exam: REGULAR RHYTHM - GI/Abdominal Exam GI & Abdominal Exam: Normal Bowel Sounds Assessment and Plan - Assessment and Plan (Free Text) Assessment: DM, gastroparesis, HX opioid induced constipation Labs ordered
[2017-06-21] MEDS: Sodium Chloride 0.45% 1,000 ML IV SCH (00:13)
--- NOTE | 2017-06-21 03:55 | CON ---
DATE: 06/20/2017 ENDOCRINOLOGY CONSULTATION LOCATION: In room 655. HISTORY OF PRESENT ILLNESS: This is a 56-year-old male with known history of type 1 insulin-dependent diabetes, currently on a Medtronic insulin pump, presenting here with diffuse abdominal pain and associated nausea, dyspepsia and vomiting and is now being referred for diabetic evaluation and management. PAST MEDICAL HISTORY: As mentioned above, history of type 1 insulin-dependent diabetes, currently using a Medtronic insulin pump with continuous insulin infusion as expected and noted. History of hypertensive cardiovascular disease and dyslipidemia, history of diabetic retinopathy and polyneuropathy as noted. Previous history of pneumonia and admissions here for the same. History of diabetic gastroparesis with multiple admissions for exacerbations of the same. history of polysubstance abuse and heroin usage and currently on methadone given as 5 mg every 8 hours as needed. FAMILY HISTORY Positive for hypertension and diabetes. SOCIAL HISTORY The patient has supportive family. No known substance use, but admits to prior history of nicotine dependence but quit a few years ago and also polysubstance abuse of illicit drugs and currently on methadone replacement therapy. REVIEW OF SYSTEMS: As mentioned above. Admits to generalized body weakness with easy fatigability and tiredness and suboptimal energy level. Also admits to generalized body weakness with marked insomnia and disrupted sleep patterns. No recent alterations of bowel and urinary patterns. PHYSICAL EXAMINATION: GENERAL: This is an average built male in no apparent distress. VITAL SIGNS: Blood pressure of 150/90, pulse of 70 beats per minute regular, temperature 98, respirations 20, height is 5 feet 7 inches, weight is 180 pounds. HEENT: Head normocephalic. Eyes; anicteric with pink conjunctivae. Funduscopy is not possible at this time. Ears, nose and throat otherwise normal. NECK: Supple. Thyroid gland is normal in size. No carotid bruits or cervical adenopathy. CARDIOPULMONARY: Some adynamic precordium. S1, S2 is rapid and regular. LUNGS: Clear to auscultation. ABDOMEN: Flat, soft with positive bowel sounds. EXTREMITIES: No peripheral edema. Pulses are +2 bilaterally. LABORATORY The chemistries showed a BUN of 22, sodium 145, potassium 4.2, chloride 98, CO2 of 27, glucose to 226 and creatinine 0.8. ASSESSMENT This is a 56-year-old male with acute exacerbation of diabetic gastroparesis, presenting here with diffuse abdominal pain and supervening nausea, dyspepsia and vomiting and is now being referred for diabetic evaluation and management. He also has diabetic microvascular complications of retinopathy and polyneuropathy with diabetic macrovascular complications of coronary artery disease with peripheral arterial disease and vasculopathy. PLAN OF MANAGEMENT: As discussed with the patient and staff, we will start a low-dose correction scale with fingersticks to be done a.c. and at bedtime and give Humalog coverage scale at a very low dose algorithm as ordered. If his oral intake is advanced start him back on a fixed dose of Humalog given before each meal as ordered. We will continue also the basal insulin given as Levemir as 10 units subcu at bedtime daily to start tomorrow night as ordered. We will obtain a hemoglobin A1c to confirm his prior glycemic control and baseline thyroid function studies will be ordered. We will also obtain a lipid panel to screen for other endocrinopathies as noted. We will also add a serum cortisol levels as indicated. We will hold off the initiation of his basal and bolus insulin regimen until day of advance his diet to solid food as noted. We will obtain serial chemistries and supplement accordingly as needed. We will follow. Rizwana Raygoza MD
[2017-06-21 06:32] LABS: HEMOGLOBIN 13.7 g/dL (12.0-18.0); MEAN CELL VOLUME 74.6 fl (80.0-94.0); MEAN CORPUSCULAR HEMOGLOBIN 23.4 pg (27.0-31.0); MEAN CORPUSCULAR HGB CONC 31.4 g/dL (33.0-37.0); RBC 5.85 Mil/uL (4.40-5.90); RED CELL DISTRIBUTION WIDTH 14.7 % (11.5-14.5); WHITE BLOOD COUNT 13.8 K/uL (4.8-10.8)
[2017-06-21 06:50] LABS: LDL CHOLESTEROL 66 mg/dL (0-129)
[2017-06-21 06:55] LABS: T4 12.4 ug/dl (5.5-11.0)
[2017-06-21 06:56] LABS: ALB/GLOB RATIO 1.2 (1.0-2.1); ALBUMIN 4.3 g/dL (3.5-5.0); ALT/SGPT 41 U/L (21-72); AST/SGOT 21 U/L (17-59); BLOOD UREA NITROGEN 19 mg/dl (9-20); CALCIUM 9.2 mg/dL (8.4-10.2); GFR AFRICAN-AMERICAN > 60; GFR NON-AFRICAN AMERICAN > 60; HDL CHOLESTEROL 36 MG/DL (30-70)
--- NOTE | 2017-06-21 10:49 | CP.PCM.CON ---
<Amada Metzger - Last Filed: 06/21/17 11:16> History of Present Illness - History of Present Illness History of Present Illness: Gastroenterology Fellow/PGY5 Consult Note 56 year old male with PMH of uncontrolled T1DM on insulin pump complicated by retinopathy/neuropathy/Gastroparesis/right foot ulcer, HTN, DLD, prior heroin abuse on methadone, and opioid induced constipation presenting with vomiting and abdominal pain. Patient notes eating a meal on followed by a large bowel movement, belching, and subsequent bilious/food vomitus leading to ER presentation. Notes no further episodes of vomiting since admission. No bowel movement since . Admits to irregular bowel habit every 1-2 days with incomplete evaluation, intermittent formed stools with diarrhea, and watery stool incontinence in his sleep. Denies use of laxatives with opioid use. Uses reglan and zofran at home. Denies hematemesis, melena, hematochezia, dysphagia, odynophagia, or unintentional weight loss. Last seen by Dr. Mac 06/17/16 with recommendation for zofran, reglan, and colace for gastroparesis and constipation. EGD and colonoscopy 03/2016 showed erosive H. pylori negative gastritis, aperistalsis, 8mm cecal tubular adenoma, valdovinos-diverticulosis, and internal hemorrhoids. Family History- denies stomach cancer, colon cancer Social History- prior polysubstance abuse-tobacco, heroin-on methadone, prior 1- 2 glasses of wine twice a week Surgical History-right foot osteomyelitis debridement, B/L forearm surgeries Review of Systems - Review of Systems Review of Systems: 12-point review of systems negative except for as above Past Patient History - Past Medical History & Family History Past Medical History?: Yes - Past Social History Smoking Status: Never Smoked - CARDIAC Hx Hypertension: Yes - PULMONARY Hx Bronchitis: Yes Hx Pneumonia: Yes - NEUROLOGICAL Hx Neurological Disorder: Yes - HEENT Hx HEENT Problems: No - RENAL Hx Chronic Kidney Disease: No - ENDOCRINE/METABOLIC Hx Endocrine Disorders: Yes Hx Diabetes Mellitus Type 1: Yes - HEMATOLOGICAL/ONCOLOGICAL Hx Human Immunodeficiency Virus (HIV): No - INTEGUMENTARY Other/Comment: Diabetic ulcer left foot - MUSCULOSKELETAL/RHEUMATOLOGICAL Hx Falls: No - GASTROINTESTINAL Other/Comment: gastroparesis - GENITOURINARY/GYNECOLOGICAL Hx Genitourinary Disorders: No - PSYCHIATRIC Hx Substance Use: No - SURGICAL HISTORY Hx Surgeries: Yes Hx Tonsillectomy: Yes Other/Comment: B/L elbow and R. wrist nerve decompression - ANESTHESIA Hx Anesthesia: Yes Hx Anesthesia Reactions: No Hx Malignant Hyperthermia: No Meds Allergies/Adverse Reactions: Allergies Allergy/AdvReac Type Severity Reaction Status Date / Time iodine Allergy RASH Verified 09/09/16 12:09 peanut Allergy RASH Verified 06/20/17 13:49 shellfish derived Allergy RASH Verified 09/09/16 12:09 - Medications Medications: Current Medications Atorvastatin Calcium (Lipitor) 20 mg PO HS [facility] Enoxaparin Sodium (Lovenox) 40 mg SC DAILY [facility] PRN Reason: Protocol Sodium Chloride (Sodium Chloride 0.45%) 1,000 mls @ 100 mls/hr IV .Q10H [facility] Stop: 06/23/17 23:50 Last Admin: 06/21/17 00:13 Dose: 100 mls/hr Lactic Acid (Lac-Hydrin 12% Lotion (225 G)) 1 applic TOP TID [facility] Methadone HCl (Methadone) 10 mg PO BID [facility] Last Admin: 06/21/17 09:04 Dose: 10 mg Methadone HCl (Methadone) 5 mg PO Q8 PRN PRN Reason: Pain, severe (8-10) Metoclopramide HCl (Reglan) 10 mg IVP Q6 PRN PRN Reason: Nausea/Vomiting Last Admin: 06/21/17 00:22 Dose: 10 mg Metoprolol Tartrate (Lopressor) 50 mg PO Q12 [facility] Last Admin: 06/21/17 09:00 Dose: 50 mg Pregabalin (Lyrica) 100 mg PO BID [facility] Last Admin: 06/21/17 09:01 Dose: 100 mg Physical Exam - Constitutional Appears: Non-toxic, No Acute Distress - Head Exam Head Exam: ATRAUMATIC, NORMOCEPHALIC - Eye Exam Eye Exam: EOMI, PERRL. absent: Scleral icterus Pupil Exam: PERRL. absent: Miosis, Mydriatic - ENT Exam ENT Exam: Mucous Membranes Moist, Normal Oropharynx - Neck Exam Neck exam: Positive for: Full Rom, Normal Inspection - Respiratory Exam Respiratory Exam: Clear to Auscultation Bilateral. absent: Rales, Rhonchi, Wheezes - Cardiovascular Exam Cardiovascular Exam: RRR, +S1, +S2. absent: Gallop, Rubs - GI/Abdominal Exam GI & Abdominal Exam: Normal Bowel Sounds, Soft. absent: Distended, Firm, Organomegaly, Rebound, Rigid, Tenderness - Extremities Exam Extremities exam: Positive for: normal inspection. Negative for: pedal edema - Neurological Exam Neurological exam: Alert, Oriented x3 - Psychiatric Exam Psychiatric exam: Normal Affect, Normal Mood - Skin Skin Exam: Normal Color, Warm Results - Vital Signs Recent Vital Signs: Last Vital Signs Temp 99.7 F H 06/21/17 08:27 Pulse 83 06/21/17 09:00 Resp 20 06/21/17 08:27 BP 162/96 H 06/21/17 09:00 Pulse Ox 98 06/21/17 08:27 - Labs Result Diagrams: 06/21/17 05:10 06/21/17 05:10 Labs: Laboratory Results - last 24 hr 06/20/17 06/20/17 06/20/17 14:58 15:19 15:39 WBC 13.9 H D RBC 5.83 Hgb 13.7 D Hct 43.0 MCV 73.7 L D MCH 23.5 L MCHC 31.9 L RDW 14.7 H Plt Count 369 MPV 9.5 Neut % (Auto) 88.1 H Lymph % (Auto) 6.9 L [place] % (Auto) 4.9 Eos % (Auto) 0.0 Baso % (Auto) 0.1 Neut # (Auto) 12.3 H Lymph # (Auto) 1.0 [place] # (Auto) 0.7 Eos # (Auto) 0.0 Baso # (Auto) 0.0 Neutrophils % (Manual) 82 H Lymphocytes % (Manual) 7 L Reactive Lymphs % 7 H Monocytes % (Manual) 4 Platelet Estimate Normal Large Platelets Present Giant Platelets Present Hypochromasia (manual) Slight Microcytosis (manual) Slight Target Cells Slight Stomatocytes Slight Sodium 145 Potassium 4.2 Chloride 98 Carbon Dioxide 27 Anion Gap 24 H BUN 22 H Creatinine 0.8 Est GFR ( Amer) > 60 Est GFR (Non-Af Amer) > 60 POC Glucose (mg/dL) Random Glucose 226 H Calcium 9.5 Total Bilirubin 0.7 AST 30 ALT 36 Alkaline Phosphatase 97 Total Protein 7.9 Albumin 4.4 Globulin 3.5 Albumin/Globulin Ratio 1.2 Triglycerides Cholesterol LDL Cholesterol Direct HDL Cholesterol Lipase 62 Thyroxine (T4) TSH 3rd Generation Urine Color Straw Urine Clarity Clear Urine pH 7.0 Ur Specific [place] 1.024 Urine Protein Negative Urine Glucose (UA) >=500 Urine Ketones Negative Urine Blood Negative Urine Nitrate Negative Urine Bilirubin Negative Urine Urobilinogen 0.2-1.0 Ur Leukocyte Esterase Neg Urine RBC (Auto) 2 Urine Microscopic WBC < 1 06/21/17 06/21/17 06/21/17 05:10 05:10 06:16 WBC 13.8 H RBC 5.85 Hgb 13.7 Hct 43.6 MCV 74.6 L MCH 23.4 L MCHC 31.4 L RDW 14.7 H Plt Count 328 MPV Neut % (Auto) Lymph % (Auto) [place] % (Auto) Eos % (Auto) Baso % (Auto) Neut # (Auto) Lymph # (Auto) [place] # (Auto) Eos # (Auto) Baso # (Auto) Neutrophils % (Manual) Lymphocytes % (Manual) Reactive Lymphs % Monocytes % (Manual) Platelet Estimate Large Platelets Giant Platelets Hypochromasia (manual) Microcytosis (manual) Target Cells Stomatocytes Sodium 142 Potassium 3.9 Chloride 98 Carbon Dioxide 28 Anion Gap 20 BUN 19 Creatinine 0.8 Est GFR ( Amer) > 60 Est GFR (Non-Af Amer) > 60 POC Glucose (mg/dL) 200 H Random Glucose 205 H Calcium 9.2 Total Bilirubin 1.0 AST 21 ALT 41 Alkaline Phosphatase 96 Total Protein 7.8 Albumin 4.3 Globulin 3.5 Albumin/Globulin Ratio 1.2 Triglycerides 60 Cholesterol 121 LDL Cholesterol Direct 66 HDL Cholesterol 36 Lipase Thyroxine (T4) 12.4 H TSH 3rd Generation < 0.02 L Urine Color Urine Clarity Urine pH Ur Specific [place] Urine Protein Urine Glucose (UA) Urine Ketones Urine Blood Urine Nitrate Urine Bilirubin Urine Urobilinogen Ur Leukocyte Esterase Urine RBC (Auto) Urine Microscopic WBC Assessment & Plan - Assessment and Plan (Free Text) Assessment: 56 year old male with PMH of uncontrolled T1DM on insulin pump complicated by retinopathy/neuropathy/Gastroparesis/right foot ulcer, HTN, DLD, prior heroin abuse on methadone, and opioid induced constipation presenting with vomiting and abdominal pain. Active treatment of gastroparesis and constipation. Last seen by Dr. Mac 06/17/16 with recommendation for zofran, reglan, and colace for gastroparesis and constipation. EGD and colonoscopy 03/2016 showed erosive H. pylori negative gastritis, aperistalsis, 8mm cecal tubular adenoma, valdovinos- diverticulosis, and internal hemorrhoids. Plan: -CT- no acute pathology -continue zofran ODT PRN -advance to small frequent meals-bland cardiac diabetic diet -start Miralax daily -counselled on fiber and water intake -follows at [facility] with GI, diagnosed with small intestinal bacterial overgrowth ( SIBO) -completed two week course of Rifaximin during May 2017 -plans to make follow up appointment for repeat breath testing for SIBO at [facility] <Eamon Mac - Last Filed: 06/21/17 13:00> Meds - Medications Medications: Current Medications Atorvastatin Calcium (Lipitor) 20 mg PO HS [facility] Enoxaparin Sodium (Lovenox) 40 mg SC DAILY [facility] PRN Reason: Protocol Sodium Chloride (Sodium Chloride 0.45%) 1,000 mls @ 100 mls/hr IV .Q10H [facility] Stop: 06/23/17 23:50 Last Admin: 06/21/17 00:13 Dose: 100 mls/hr Lactic Acid (Lac-Hydrin 12% Lotion (225 G)) 1 applic TOP TID [facility] Methadone HCl (Methadone) 10 mg PO BID [facility] Last Admin: 06/21/17 09:04 Dose: 10 mg Methadone HCl (Methadone) 5 mg PO Q8 PRN PRN Reason: Pain, severe (8-10) Metoclopramide HCl (Reglan) 10 mg IVP Q6 PRN PRN Reason: Nausea/Vomiting Last Admin: 06/21/17 00:22 Dose: 10 mg Metoprolol Tartrate (Lopressor) 50 mg PO Q12 [facility] Last Admin: 06/21/17 09:00 Dose: 50 mg Ondansetron HCl (Zofran Odt) 4 mg PO Q8H PRN PRN Reason: Nausea/Vomiting Polyethylene Glycol (Miralax) 17 gm PO DAILY [facility] Pregabalin (Lyrica) 100 mg PO BID [facility] Last Admin: 06/21/17 09:01 Dose: 100 mg Results - Vital Signs Recent Vital Signs: Last Vital Signs Temp 99.7 F H 06/21/17 08:27 Pulse 83 06/21/17 09:00 Resp 20 06/21/17 08:27 BP 162/96 H 06/21/17 09:00 Pulse Ox 98 06/21/17 08:27 - Labs Result Diagrams: 06/21/17 05:10 06/21/17 05:10 Labs: Laboratory Results - last 24 hr 06/20/17 06/20/17 06/20/17 14:58 15:19 15:39 WBC 13.9 H D RBC 5.83 Hgb 13.7 D Hct 43.0 MCV 73.7 L D MCH 23.5 L MCHC 31.9 L RDW 14.7 H Plt Count 369 MPV 9.5 Neut % (Auto) 88.1 H Lymph % (Auto) 6.9 L [place] % (Auto) 4.9 Eos % (Auto) 0.0 Baso % (Auto) 0.1 Neut # (Auto) 12.3 H Lymph # (Auto) 1.0 [place] # (Auto) 0.7 Eos # (Auto) 0.0 Baso # (Auto) 0.0 Neutrophils % (Manual) 82 H Lymphocytes % (Manual) 7 L Reactive Lymphs % 7 H Monocytes % (Manual) 4 Platelet Estimate Normal Large Platelets Present Giant Platelets Present Hypochromasia (manual) Slight Microcytosis (manual) Slight Target Cells Slight Stomatocytes Slight Sodium 145 Potassium 4.2 Chloride 98 Carbon Dioxide 27 Anion Gap 24 H BUN 22 H Creatinine 0.8 Est GFR ( Amer) > 60 Est GFR (Non-Af Amer) > 60 POC Glucose (mg/dL) Random Glucose 226 H Calcium 9.5 Total Bilirubin 0.7 AST 30 ALT 36 Alkaline Phosphatase 97 Total Protein 7.9 Albumin 4.4 Globulin 3.5 Albumin/Globulin Ratio 1.2 Triglycerides Cholesterol LDL Cholesterol Direct HDL Cholesterol Lipase 62 Thyroxine (T4) TSH 3rd Generation Urine Color Straw Urine Clarity Clear Urine pH 7.0 Ur Specific [place] 1.024 Urine Protein Negative Urine Glucose (UA) >=500 Urine Ketones Negative Urine Blood Negative Urine Nitrate Negative Urine Bilirubin Negative Urine Urobilinogen 0.2-1.0 Ur Leukocyte Esterase Neg Urine RBC (Auto) 2 Urine Microscopic WBC < 1 06/21/17 06/21/17 06/21/17 05:10 05:10 06:16 WBC 13.8 H RBC 5.85 Hgb 13.7 Hct 43.6 MCV 74.6 L MCH 23.4 L MCHC 31.4 L RDW 14.7 H Plt Count 328 MPV Neut % (Auto) Lymph % (Auto) [place] % (Auto) Eos % (Auto) Baso % (Auto) Neut # (Auto) Lymph # (Auto) [place] # (Auto) Eos # (Auto) Baso # (Auto) Neutrophils % (Manual) Lymphocytes % (Manual) Reactive Lymphs % Monocytes % (Manual) Platelet Estimate Large Platelets Giant Platelets Hypochromasia (manual) Microcytosis (manual) Target Cells Stomatocytes Sodium 142 Potassium 3.9 Chloride 98 Carbon Dioxide 28 Anion Gap 20 BUN 19 Creatinine 0.8 Est GFR ( Amer) > 60 Est GFR (Non-Af Amer) > 60 POC Glucose (mg/dL) 200 H Random Glucose 205 H Calcium 9.2 Total Bilirubin 1.0 AST 21 ALT 41 Alkaline Phosphatase 96 Total Protein 7.8 Albumin 4.3 Globulin 3.5 Albumin/Globulin Ratio 1.2 Triglycerides 60 Cholesterol 121 LDL Cholesterol Direct 66 HDL Cholesterol 36 Lipase Thyroxine (T4) 12.4 H TSH 3rd Generation < 0.02 L Urine Color Urine Clarity Urine pH Ur Specific [place] Urine Protein Urine Glucose (UA) Urine Ketones Urine Blood Urine Nitrate Urine Bilirubin Urine Urobilinogen Ur Leukocyte Esterase Urine RBC (Auto) Urine Microscopic WBC 06/21/17 11:15 WBC RBC Hgb Hct MCV MCH MCHC RDW Plt Count MPV Neut % (Auto) Lymph % (Auto) [place] % (Auto) Eos % (Auto) Baso % (Auto) Neut # (Auto) Lymph # (Auto) [place] # (Auto) Eos # (Auto) Baso # (Auto) Neutrophils % (Manual) Lymphocytes % (Manual) Reactive Lymphs % Monocytes % (Manual) Platelet Estimate Large Platelets Giant Platelets Hypochromasia (manual) Microcytosis (manual) Target Cells Stomatocytes Sodium Potassium Chloride Carbon Dioxide Anion Gap BUN Creatinine Est GFR ( Amer) Est GFR (Non-Af Amer) POC Glucose (mg/dL) 137 H Random Glucose Calcium Total Bilirubin AST ALT Alkaline Phosphatase Total Protein Albumin Globulin Albumin/Globulin Ratio Triglycerides Cholesterol LDL Cholesterol Direct HDL Cholesterol Lipase Thyroxine (T4) TSH 3rd Generation Urine Color Urine Clarity Urine pH Ur Specific [place] Urine Protein Urine Glucose (UA) Urine Ketones Urine Blood Urine Nitrate Urine Bilirubin Urine Urobilinogen Ur Leukocyte Esterase Urine RBC (Auto) Urine Microscopic WBC Attending/Attestation - Attestation I have personally seen and examined this patient.: Yes I have fully participated in the care of the patient.: Yes I have reviewed all pertinent clinical information: Yes Notes (Text): 06/21/17 12:55 This is a 56 year old male with PMH of uncontrolled T1DM on insulin pump complicated by retinopathy/neuropathy/Gastroparesis/right foot ulcer, HTN, DLD, prior heroin abuse on methadone, and opioid induced constipation presenting with vomiting and abdominal pain. Last seen by me in office 06/17/16 with recommendation for zofran, reglan, and colace for gastroparesis and constipation. EGD and colonoscopy 03/2016 showed erosive H. pylori negative gastritis, aperistalsis, 8mm cecal tubular adenoma, valdovinos-diverticulosis, and internal hemorrhoids. Recently he has found a new GI at [facility] who diagnosed him with SIBO and treated him with Rifaximin. CT unremarkable. Patient non compliant with stool softeners- will start on laxatives. Advance diet as tolerated. Endocrine consult noted. Strict glycemic control. Plans to make follow up appointment for repeat breath testing for SIBO at [facility]. No further GI work up required. Will sign off now. Thank you for letting us participate in the care of your patient
[2017-06-21] MEDS: Enoxaparin 40 mg Syringe SC SCH (13:23)
--- NOTE | 2017-06-21 14:06 | PN ---
DATE: 06/21/2017 ENDO FOLLOWUP NOTE LOCATION: Room 655. SUBJECTIVE: This is a 56-year-old male with recent uncontrolled type 1 insulin-dependent diabetes presenting here with recurrent bouts of severe abdominal pain in association with exacerbation of diabetic gastroparesis with supervening intractable vomiting episodes and is now being followed closely for metabolic management. He is still n.p.o. at this time and the glucose values are fluctuating, but improved as noted with today's glucose values ranging from 137 mg/dL to 200 mg/dL. His latest chemistries include BUN of 19, sodium of 142, potassium of 3.9, chloride of 98, CO2 of 28, glucose of 205, and creatinine of 0.8. His thyroid studies, however, are abnormal with a total T4 of 12.4 mcg/dL and TSH of less than 0.02. ASSESSMENT: This is a 56-year-old male with uncontrolled and decompensated type 1 insulin-dependent diabetes presenting here with intractable vomiting episodes and acute exacerbation of diabetic gastroparesis and is now being followed closely for metabolic management. He also has overt hyperthyroidism both historically, clinically, and biochemically most likely related to underlying autoimmune thyroiditis as noted. PLAN OF MANAGEMENT: We will allow the patient to continue his Medtronic insulin pump, which will actually gave him continuous insulin infusion with basal insulin as given. As his oral intake is advanced then we will switch him over to a more physiologic basal and bolus insulin drug combination as ordered with the use of his current insulin pump. We will also obtain serial chemistries and supplement accordingly as needed. We will follow and advise accordingly. Rizwana Raygoza MD
[2017-06-21] MEDS: POLYETHYLENE GLYCOL 3350 17 GM/Dose PACKET PO SCH (16:46)
[2017-06-22 07:01] LABS: ALB/GLOB RATIO 1.2 (1.0-2.1); ALBUMIN 4.2 g/dL (3.5-5.0); ALT/SGPT 38 U/L (21-72); AST/SGOT 19 U/L (17-59); BLOOD UREA NITROGEN 19 mg/dl (9-20); CALCIUM 9.1 mg/dL (8.4-10.2); GFR AFRICAN-AMERICAN > 60; GFR NON-AFRICAN AMERICAN > 60
[2017-06-22 07:16] LABS: T4 12.1 ug/dl (5.5-11.0)
[2017-06-22 08:12] VITALS: O2SAT 97
[2017-06-22] MEDS: Enoxaparin 40 mg Syringe SC SCH (09:31)
[2017-06-22] MEDS: POLYETHYLENE GLYCOL 3350 17 GM/Dose PACKET PO SCH (09:33)
[2017-06-22] MEDS: Sodium Chloride 0.45% 1,000 ML IV SCH (14:00)
--- NOTE | 2017-06-22 15:16 | PN ---
DATE: 06/22/2017 ENDOCRINOLOGY FOLLOWUP NOTE LOCATION: Room number . SUBJECTIVE: This is a 56-year-old male with recent uncontrolled type 1 insulin-dependent diabetes, using a Medtronic insulin pump who was admitted here with acute exacerbation of diabetic gastroparesis with diffuse abdominal pain and intractable vomiting episodes that have improved and subsided over the last 48 hours as noted. His glycemic levels are fluctuating and the glucose values have ranged from 151 to 179 mg/dL. LABORATORY DATA: His latest chemistries shows a BUN of 19, sodium of 136, potassium of 4.1, chloride of 96, CO2 of 28, glucose of 173 and creatinine of 0.7. He also has early hyperthyroidism and has been started on medical therapy as ordered. His latest thyroid study showed T4 of 12.1 micrograms per deciliter with a TSH of less than 0.041 and a free T4 of 1.87. IMPRESSION AND PLAN: So at this time, we will continue the medical therapy with Tapazole given as 10 mg b.i.d. after meals as ordered. We will continue also the use of his Medtronic insulin pump, which gives him continuous insulin and has been advised to at his bolus coverage for the mealtimes as indicated. We will obtain serial chemistries and supplement accordingly as needed. We will follow. Rizwana Raygoza MD
[2017-06-23] MEDS: Sodium Chloride 0.45% 1,000 ML IV SCH ×2 (01:45→04:27)
[2017-06-23 06:14] LABS: HEMOGLOBIN 13.3 g/dL (12.0-18.0); MEAN CELL VOLUME 74.3 fl (80.0-94.0); MEAN CORPUSCULAR HEMOGLOBIN 23.8 pg (27.0-31.0); MEAN CORPUSCULAR HGB CONC 32.1 g/dL (33.0-37.0); RBC 5.59 Mil/uL (4.40-5.90); RED CELL DISTRIBUTION WIDTH 14.4 % (11.5-14.5); WHITE BLOOD COUNT 8.4 K/uL (4.8-10.8)
[2017-06-23 06:29] LABS: ALB/GLOB RATIO 1.1 (1.0-2.1); ALBUMIN 3.5 g/dL (3.5-5.0); ALT/SGPT 37 U/L (21-72); AST/SGOT 21 U/L (17-59); BLOOD UREA NITROGEN 21 mg/dl (9-20); CALCIUM 8.6 mg/dL (8.4-10.2); GFR AFRICAN-AMERICAN > 60; GFR NON-AFRICAN AMERICAN > 60
[2017-06-23 06:38] LABS: T4 10.8 ug/dl (5.5-11.0)
[2017-06-23 07:48] VITALS: BP 148/72; PULSE 73; RESP 20; TEMP 98
[2017-06-23] MEDS: POLYETHYLENE GLYCOL 3350 17 GM/Dose PACKET PO SCH (08:27)
[2017-06-23] MEDS: Enoxaparin 40 mg Syringe SC SCH (08:27)
--- NOTE | 2017-06-23 15:50 | PN ---
DATE: 06/23/2017 ENDO FOLLOWUP NOTE LOCATION: Room 655. SUBJECTIVE: This is a 56-year-old male with recent admission for diabetic foot for exacerbation of diabetic gastroparesis with supervening nausea, dyspepsia, and intractable vomiting with underlying abdominal pain and has since then improved clinically and metabolically as noted thereof. His oral intake has improved and has been able to tolerate his meals as noted by the nursing staff. His glucose values have ranged from 149-182 and 211 mg/dL. His latest chemistries include a BUN of 21, sodium of 137, potassium of 3.8, chloride of 99, CO2 of 24, glucose of 156, and creatinine of 0.9. The repeat thyroid studies showed T4 of 10.8 with a TSH of 0.15. So at this time, we would recommend that he continue the use of his Medtronic insulin pump, which is given actually continuous basal insulin with bolus meal doses as given. We would also continue the Tapazole at the left lower dose of 5 mg b.i.d. after meals as ordered. We would highly recommend a repeat thyroid study post discharge in about a month to adjust his dose regimen accordingly. We will follow. Rizwana Raygoza MD
--- NOTE | 2017-06-23 19:46 | CP.PCM.HP ---
History of Present Illness - History of Present Illness History of Present Illness: 56 yo with hx of diabetic gastroparesis admitted with vomiting and GI upset Present on Admission - Present on Admission Any Indicators Present on Admission: No Past Patient History - Past Medical History & Family History Past Medical History?: Yes - Past Social History Smoking Status: Never Smoked - CARDIAC Hx Hypertension: Yes - PULMONARY Hx Bronchitis: Yes Hx Pneumonia: Yes - NEUROLOGICAL Hx Neurological Disorder: Yes - HEENT Hx HEENT Problems: No - RENAL Hx Chronic Kidney Disease: No - ENDOCRINE/METABOLIC Hx Endocrine Disorders: Yes Hx Diabetes Mellitus Type 1: Yes - HEMATOLOGICAL/ONCOLOGICAL Hx Human Immunodeficiency Virus (HIV): No - INTEGUMENTARY Other/Comment: Diabetic ulcer left foot - MUSCULOSKELETAL/RHEUMATOLOGICAL Hx Falls: No - GASTROINTESTINAL Other/Comment: gastroparesis - GENITOURINARY/GYNECOLOGICAL Hx Genitourinary Disorders: No - PSYCHIATRIC Hx Substance Use: No - SURGICAL HISTORY Hx Surgeries: Yes Hx Tonsillectomy: Yes Other/Comment: B/L elbow and R. wrist nerve decompression - ANESTHESIA Hx Anesthesia: Yes Hx Anesthesia Reactions: No Hx Malignant Hyperthermia: No Meds Home Medications: Home Medication List Medication Instructions Recorded Confirmed Type Polyethylene Glycol 3350 [Miralax] 17 gm PO DAILY packet 06/23/17 Rx methIMAzole [Tapazole] 5 mg PO BID #60 tab 06/23/17 Rx Allergies/Adverse Reactions: Allergies Allergy/AdvReac Type Severity Reaction Status Date / Time iodine Allergy RASH Verified 09/09/16 12:09 peanut Allergy RASH Verified 06/20/17 13:49 shellfish derived Allergy RASH Verified 09/09/16 12:09 Results - Vital Signs Recent Vital Signs: Last Vital Signs Temp 98 F 06/23/17 07:47 Pulse 73 06/23/17 08:26 Resp 20 06/23/17 07:47 BP 148/72 06/23/17 08:26 Pulse Ox 97 06/23/17 07:47 - Labs Result Diagrams: 06/23/17 05:50 06/23/17 05:50 Labs: Laboratory Results - last 24 hr 06/22/17 06/23/17 06/23/17 21:47 05:11 05:50 WBC 8.4 RBC 5.59 Hgb 13.3 Hct 41.5 MCV 74.3 L MCH 23.8 L MCHC 32.1 L RDW 14.4 Plt Count 307 Sodium Potassium Chloride Carbon Dioxide Anion Gap BUN Creatinine Est GFR ( Amer) Est GFR (Non-Af Amer) POC Glucose (mg/dL) 182 H 149 H Random Glucose Calcium Total Bilirubin AST ALT Alkaline Phosphatase Total Protein Albumin Globulin Albumin/Globulin Ratio Free T4 Thyroxine (T4) TSH 3rd Generation 06/23/17 06/23/17 06/23/17 05:50 05:50 11:31 WBC RBC Hgb Hct MCV MCH MCHC RDW Plt Count Sodium 137 Potassium 3.8 Chloride 99 Carbon Dioxide 24 Anion Gap 18 BUN 21 H Creatinine 0.9 Est GFR ( Amer) > 60 Est GFR (Non-Af Amer) > 60 POC Glucose (mg/dL) 211 H Random Glucose 156 H Calcium 8.6 Total Bilirubin 1.2 AST 21 ALT 37 Alkaline Phosphatase 73 Total Protein 6.6 Albumin 3.5 Globulin 3.1 Albumin/Globulin Ratio 1.1 Free T4 1.77 Thyroxine (T4) 10.8 TSH 3rd Generation 0.15 L Assessment & Plan - Assessment and Plan (Free Text) Assessment: Diabetic gastroparesis OIC IVF GI consult Cont meds Hyperthyroidism Endo Tapazole - Date & Time Date: 06/23/17 Time: 22:22
[2017-06-25 19:17] LABS: TSI 201 % baseline (<140)
== END 2017-06-23 14:46 | disposition home or self-care (01) ==
LOC: H.ER 13:42 → INTOOBSV 19:11 → H.ERHOLD 19:11 → H.MEDSURG1 21:11
PROVIDERS: ADMIT Family Medicine Geriatric Medicine; ATTEND Family Medicine Geriatric Medicine
DX: E10.43 Type 1 diabetes mellitus with diabetic autonomic (poly)neuropathy (principal); K31.84 Gastroparesis; Z79.4 Long term (current) use of insulin; Z96.41 Presence of insulin pump (external) (internal); E10.65 Type 1 diabetes mellitus with hyperglycemia; E10.319 Type 1 diabetes mellitus with unspecified diabetic retinopathy without macular edema; E10.621 Type 1 diabetes mellitus with foot ulcer; F11.20 Opioid dependence, uncomplicated; E06.3 Autoimmune thyroiditis; E05.90 Thyrotoxicosis, unspecified without thyrotoxic crisis or storm; I11.9 Hypertensive heart disease without heart failure; E78.5 Hyperlipidemia, unspecified; L97.529 Non-pressure chronic ulcer of other part of left foot with unspecified severity; K59.03 Drug induced constipation; K57.90 Diverticulosis of intestine, part unspecified, without perforation or abscess without bleeding; Z91.19 Patient's noncompliance with other medical treatment and regimen; Z87.891 Personal history of nicotine dependence; Z87.01 Personal history of pneumonia (recurrent); Z91.041 Radiographic dye allergy status; Z91.010 Allergy to peanuts; Z91.013 Allergy to seafood
CPT/HCPCS: 36415; 74176; 80053; 80061; 81003; 82948; 83036; 83690; 84436; 84443; 84445; 85025; 85027; 96374; 96375; 99284; G0378; J1650; J2270; J2765; J7030; J7040

== ENCOUNTER 2017-08-05 17:55 | Inpatient (IN) | payer MEDICARE, BC ==
[2017-08-05] MEDS ORDERED: Sodium Chloride 0.9% 1,000 ML IV STA ×2 (18:38→19:50)
--- NOTE | 2017-08-05 19:04 | ED PDOC ---
HPI: Abdomen Time Seen by Provider: 08/05/17 18:15 Chief Complaint (Nursing): Chest Pain Chief Complaint (Provider): Abdominal Pain and Vomiting History Per: Patient History/Exam Limitations: no limitations Onset/Duration Of Symptoms: Days (2x) Current Symptoms Are (Timing): Still Present Quality Of Discomfort: "Pain" Associated Symptoms: Chest Pain. denies: Fever, Diarrhea Additional Complaint(s): 56 year old male with a history of diabetes and hypertension presents to the ED via EMS for an evaluation of chest pain, abdominal pain and vomiting. States of non-bilious and non-bloody vomiting yesterday and he vomited several times today. Reports due to vomiting, he has developed internal chest pain. Patient has gastroparesis and reports of high sugar but does not check his blood sugar and is noncompliant with his insulin pump. Denies difficulty breathing, fever or diarrhea. PMD: Faisal Gomez Past Medical History Reviewed: Historical Data, Nursing Documentation, Vital Signs Vital Signs: Last Vital Signs Temp 98.6 F 08/09/17 16:08 Pulse 80 08/09/17 16:08 Resp 18 08/09/17 16:08 BP 116/79 08/09/17 16:08 Pulse Ox 95 08/09/17 16:08 - Medical History PMH: Bronchitis, Diabetes (type I, insulin pump), HTN, Pneumonia Denies: CAD, HIV, Chronic Kidney Disease - Surgical History Surgical History: Tonsillectomy - Family History Family History: States: Diabetes (grandparents), Hypertension (grandparents) - Immunization History Hx Tetanus Toxoid Vaccination: No Hx Influenza Vaccination: Yes Hx Pneumococcal Vaccination: Yes - Home Medications Home Medications: Ambulatory Orders Medication Instructions Recorded Methadone 5 mg PO Q8 PRN 08/25/15 Pregabalin [Lyrica] 100 mg PO BID 08/25/15 Methadone 10 mg PO BID 06/20/17 Metoclopramide [Reglan] 10 mg PO TID 06/20/17 Rosuvastatin Calcium [Crestor] 10 mg PO HS 06/20/17 Polyethylene Glycol 3350 [Miralax] 17 gm PO DAILY packet 06/23/17 methIMAzole [Tapazole] 5 mg PO BID #60 tab 06/23/17 Esomeprazole Magnesium [Nexium] 40 mg PO DAILY 08/05/17 - Allergies Allergies/Adverse Reactions: Allergies Allergy/AdvReac Type Severity Reaction Status Date / Time iodine Allergy RASH Verified 08/05/17 18:03 shellfish derived Allergy RASH Verified 08/05/17 18:03 Review of Systems ROS Statement: Except As Marked, All Systems Reviewed And Found Negative Constitutional: Negative for: Fever Cardiovascular: Positive for: Chest Pain Respiratory: Negative for: Shortness of Breath Gastrointestinal: Positive for: Vomiting, Abdominal Pain. Negative for: Diarrhea Physical Exam - Reviewed Nursing Documentation Reviewed: Yes Vital Signs Reviewed: Yes - Physical Exam Appears: Positive for: Non-toxic, No Acute Distress, Uncomfortable Head Exam: Positive for: ATRAUMATIC, NORMAL INSPECTION, NORMOCEPHALIC Skin: Positive for: Pallor Eye Exam: Positive for: EOMI, Normal appearance, PERRL ENT: Positive for: Normal ENT Inspection Neck: Positive for: Normal, Painless ROM, Supple. Negative for: Decreased ROM Cardiovascular/Chest: Positive for: Regular Rate, Rhythm, Tachycardia Respiratory: Positive for: Normal Breath Sounds. Negative for: Decreased Breath Sounds, Accessory Muscle Use, Respiratory Distress Gastrointestinal/Abdominal: Positive for: Bowel Sounds, Soft, Tenderness (mild epigastric ) Back: Positive for: Normal Inspection. Negative for: L CVA Tenderness, R CVA Tenderness Extremity: Positive for: Normal ROM. Negative for: Tenderness, Pedal Edema, Deformity Neurologic/Psych: Positive for: Alert, Oriented (x3). Negative for: Motor/ Sensory Deficits - Laboratory Results Result Diagrams: 08/08/17 06:42 08/08/17 06:42 - ECG Pulse Ox Interpretation: Normal Medical Decision Making Medical Decision Making: Time: 1836 Initial Impression: gastroparesis, acute pancreatitis, small bowel obstruction r /o DKA and ACS Initial Plan: --Arterial Blood Gas --Venous Blood Gas Shock Panel --Abdomen & Pelvis w/o PO or IV CT --EKG --Lipase --Troponin I --Normal Saline 1000 mls/hr --Pepcid 20mg --Reglan 10 mg Sodium Chloride 0.9% 50ml IV --Dulite Machine Bluer --Reevaluation Time: 1899 Patient will be signed out to Dr. Parra pending labs and CT scan. Scribe Attestation: Documented by Radha Boucher, acting as a scribe for Alma Maher MD Provider Scribe Attestation: All medical record entries made by the Scribe were at my direction and personally dictated by me. I have reviewed the chart and agree that the record accurately reflects my personal performance of the history, physical exam, medical decision making, and the department course for this patient. I have also personally directed, reviewed, and agree with the discharge instructions and disposition. Disposition - Clinical Impression Clinical Impression: Gastroparesis - Patient ED Disposition Is Patient to be Admitted: Transfer of Care Counseled Patient/Family Regarding: Studies Performed, Diagnosis - Disposition Disposition: Transfer of Care Disposition Time: 19:00 Condition: STABLE Patient Signed Over To: Cliff Parra Handoff Comments: Pending labs and CT scan
[2017-08-05 19:05] LABS: BASO % 0.3 % (0.0-2.0); HEMOGLOBIN 14.5 g/dL (12.0-18.0); LYMPH # 1.3 K/uL (1.0-4.3); LYMPH % 10.7 % (20.0-40.0); MEAN CELL VOLUME 73.7 fl (80.0-94.0); MEAN CORPUSCULAR HGB CONC 31.2 g/dL (33.0-37.0); MEAN PLATELET VOLUME 9.9 fl (7.2-11.7); MONO # 0.9 K/uL (0.0-0.8); MONO % 7.5 % (0.0-10.0); NEUT # 9.7 K/uL (1.8-7.0); NEUT % 81.5 % (50.0-75.0); RBC 6.31 Mil/uL (4.40-5.90); RED CELL DISTRIBUTION WIDTH 15.7 % (11.5-14.5); WHITE BLOOD COUNT 11.9 K/uL (4.8-10.8)
[2017-08-05] MEDS ORDERED: Famotidine 20mg/50ml 20 MG/50 ML BAG IVPB ONE (19:10)
[2017-08-05 19:17] LABS: LIPASE 100 U/L (23-300)
--- NOTE | 2017-08-05 19:17 | ED PDOC ---
- Laboratory Results Result Diagrams: 08/05/17 19:00 08/05/17 19:00 - ECG Pulse Ox Interpretation: Normal Medical Decision Making Medical Decision Making: Time: 1899 Patient signed out to me by Dr. Maher pending labs and CT scan. Time: 2142 EXAM: CT Abdomen and Pelvis Without Intravenous Contrast CLINICAL HISTORY: 56 years old, male; Pain and signs and symptoms; Vomiting; Abdominal pain; Generalized; Patient HX: Diabetes type 1, insulin pump TECHNIQUE: Axial computed tomography images of the abdomen and pelvis without intravenous contrast. All CT scans at this facility use one or more dose reduction techniques, viz.: automated exposure control; ma/kV adjustment per patient size (including targeted exams where dose is matched to indication; i.e. head); or iterative reconstruction technique. Coronal and sagittal reformatted images were created and reviewed. COMPARISON: CT - ABD PELVIS PO CONTRAST ONLY 2017-06-20 16:39 FINDINGS: Lung bases: Linear atelectasis or fibrosis in the lower lobes. Mediastinum: Mucosal thickening lower esophagus. ABDOMEN: Liver: Unremarkable. Gallbladder and bile ducts: Unremarkable. No calcified stones. No ductal dilation. Pancreas: Unremarkable. No ductal dilation. Spleen: Unremarkable. No splenomegaly. Adrenals: Unremarkable. No mass. Kidneys and ureters: There is nonspecific inflammation around the kidneys which is unchanged and probably a chronic finding. Nonobstructing stone in the mid left kidney. No stone the right kidney or in either ureter and no hydronephrosis Stomach and bowel: Unremarkable. No obstruction. No mucosal thickening. PELVIS: Appendix: Normal appendix. Bladder: Unremarkable. No stones. Reproductive: Unremarkable as visualized. ABDOMEN and PELVIS: Intraperitoneal space: Unremarkable. No free air. No significant fluid collection. Bones/joints: No acute fracture. No dislocation. Soft tissues: Right inguinal hernia containing fat. Vasculature: Unremarkable. No abdominal aortic aneurysm Lymph nodes: Scattered mesenteric and retroperitoneal lymph nodes which are within normal limits in size. Similar appearance on the prior study. IMPRESSION: There is nonspecific inflammation around the kidneys which is unchanged and probably a chronic finding. Correlation with urinalysis would be helpful to exclude a urinary tract infection. Patient still feeling nauseated and hiccuping upon re-evaluation. Lactate elevated likely because of dehydration, patient has dry mucus membranes. Spoke with Dr. Haley, GI Fellow for Dr. Mac who agrees with management. Case discussed with Dr. Gomez who agrees to admission. Scribe Attestation: Documented by Radha Boucher, acting as a scribe for Cliff Parra MD Provider Scribe Attestation: All medical record entries made by the Scribe were at my direction and personally dictated by me. I have reviewed the chart and agree that the record accurately reflects my personal performance of the history, physical exam, medical decision making, and the department course for this patient. I have also personally directed, reviewed, and agree with the discharge instructions and disposition. Disposition - Clinical Impression Clinical Impression: Gastroparesis - POA Present On Arrival: None - Disposition Disposition: Admitted as In-Patient Disposition Time: 23:19 Condition: FAIR
[2017-08-05 19:37] LABS: ABG ALLEN TEST YES; ARTERIAL BLOOD GAS HCO3 27.3 mmol/L (21-28); ARTERIAL BLOOD GAS HEMOGLOBIN 15.3 g/dL (11.7-17.4); ARTERIAL BLOOD GAS O2 SAT 75.8 % (95-98); ARTERIAL BLOOD GAS PCO2 28 mm/Hg (35-45); ARTERIAL BLOOD GAS PH 7.56 (7.35-7.45); ARTERIAL BLOOD GAS PO2 34 mm/Hg (80-100)
--- NOTE | 2017-08-05 21:09 | CP.PCM.PN ---
Subjective - Date & Time of Evaluation Date of Evaluation: 08/05/17 Time of Evaluation: 22:22 - Subjective Subjective: 56 yo presents to the ER for abdominal pain and N&V Objective - Vital Signs/Intake and Output Vital Signs (last 24 hours): Temp Pulse Resp BP Pulse Ox 99.3 F 94 H 17 146/98 H 100 08/05/17 19:53 08/05/17 19:53 08/05/17 19:53 08/05/17 19:53 08/05/17 19:53 - Medications Medications: Current Medications Metoclopramide HCl 10 mg/ (Sodium Chloride) 52 mls @ 300 mls/hr IVP ONCE PRN PRN Reason: Nausea/Vomiting Last Admin: 08/05/17 19:50 Dose: 50 mls/hr - Labs Labs: 08/05/17 19:00 - Respiratory Exam Respiratory Exam: NORMAL BREATHING PATTERN - Cardiovascular Exam Cardiovascular Exam: REGULAR RHYTHM - GI/Abdominal Exam GI & Abdominal Exam: Normal Bowel Sounds Assessment and Plan - Assessment and Plan (Free Text) Assessment: Diabetic gastroparesis OIC Labs IVF Hx Hyperthyroidism Tapazole
[2017-08-05 21:14] LABS: BLOOD UREA NITROGEN 19 mg/dl (9-20); CALCIUM 9.4 mg/dL (8.4-10.2); GFR AFRICAN-AMERICAN > 60; GFR NON-AFRICAN AMERICAN > 60
[2017-08-05 22:19] LABS: ABG ALLEN TEST YES; ARTERIAL BLOOD GAS HCO3 26.2 mmol/L (21-28); ARTERIAL BLOOD GAS O2 SAT 97.6 % (95-98); ARTERIAL BLOOD GAS PCO2 38 mm/Hg (35-45); ARTERIAL BLOOD GAS PH 7.44 (7.35-7.45); ARTERIAL BLOOD GAS PO2 71 mm/Hg (80-100)
[2017-08-06] MEDS: Sodium Chloride 0.45% 1,000 ML IV SCH ×3 (01:34→20:15)
--- NOTE | 2017-08-06 08:34 | CP.PCM.CON ---
History of Present Illness - History of Present Illness History of Present Illness: THE PATIENT IS A 56 YEAR OLD MALE WITH A HISTORY OF GASTROPARESIS, HYPERTENSION , SVT HISTORY AND DIABETES MELLITUS. HE WAS ADMITTED TO [facility] YESTERDAY FOLLOWING VOMITING SINCE FRIDAY. I WAS ASKED TO SEE AND FOLLOW HIM IN THE HOSPITAL. HE DENIES CHEST PAIN OR SOB. HE DENIES RECENT PALPITATIONS. Past Patient History - Past Medical History & Family History Past Medical History?: Yes - Past Social History Smoking Status: Never Smoked - CARDIAC Hx Hypertension: Yes - PULMONARY Hx Bronchitis: Yes Hx Pneumonia: Yes - NEUROLOGICAL Hx Neurological Disorder: Yes - HEENT Hx HEENT Problems: No - RENAL Hx Chronic Kidney Disease: No - ENDOCRINE/METABOLIC Hx Endocrine Disorders: Yes Hx Diabetes Mellitus Type 1: Yes - HEMATOLOGICAL/ONCOLOGICAL Hx Human Immunodeficiency Virus (HIV): No - INTEGUMENTARY Other/Comment: Diabetic ulcer left foot - MUSCULOSKELETAL/RHEUMATOLOGICAL Hx Falls: Yes Other/Comment: diabetic neuropathy. carpal tunnel right hand - GASTROINTESTINAL Other/Comment: gastroparesis - GENITOURINARY/GYNECOLOGICAL Hx Genitourinary Disorders: No - PSYCHIATRIC Hx Psychophysiologic Disorder: No Hx Substance Use: No - SURGICAL HISTORY Hx Tonsillectomy: Yes Other/Comment: Caprial tunnel right hand surgery - ANESTHESIA Hx Anesthesia: Yes Hx Anesthesia Reactions: No Hx Malignant Hyperthermia: No Meds Allergies/Adverse Reactions: Allergies Allergy/AdvReac Type Severity Reaction Status Date / Time iodine Allergy RASH Verified 08/05/17 18:03 shellfish derived Allergy RASH Verified 08/05/17 18:03 - Medications Medications: Current Medications Atorvastatin Calcium (Lipitor) 20 mg PO HS [facility] Enoxaparin Sodium (Lovenox) 30 mg SC DAILY [facility] PRN Reason: Protocol Metoclopramide HCl 10 mg/ (Sodium Chloride) 52 mls @ 300 mls/hr IVP ONCE PRN PRN Reason: Nausea/Vomiting Last Admin: 08/05/17 19:50 Dose: 50 mls/hr Sodium Chloride (Sodium Chloride 0.45%) 1,000 mls @ 100 mls/hr IV .Q10H [facility] Stop: 08/07/17 00:09 Last Admin: 08/06/17 01:34 Dose: 100 mls/hr Insulin Detemir (Levemir) 8 units SC Q12H [facility] Insulin Human Lispro (Humalog) 0 units SC ACHS [facility] Methadone HCl (Methadone) 5 mg PO Q8 PRN PRN Reason: Pain, severe (8-10) Methadone HCl (Methadone) 10 mg PO BID [facility] Methimazole (Tapazole) 5 mg PO BID [facility] Metoclopramide HCl (Reglan) 10 mg IVP Q8 PRN PRN Reason: Nausea/Vomiting Ondansetron HCl (Zofran Inj) 4 mg IVP Q4 PRN PRN Reason: Nausea/Vomiting Pantoprazole Sodium (Protonix Inj) 40 mg IVP DAILY [facility] Polyethylene Glycol (Miralax) 17 gm PO DAILY [facility] Pregabalin (Lyrica) 100 mg PO BID [facility] Physical Exam - Respiratory Exam Respiratory Exam: Clear to Auscultation Bilateral - Cardiovascular Exam Cardiovascular Exam: REGULAR RHYTHM, +S1, +S2 - Additional Findings Additional findings: EKG NSR TROPONIN NORMAL Results - Vital Signs Recent Vital Signs: Last Vital Signs Temp 99.2 F 08/06/17 00:00 Pulse 92 H 08/06/17 00:21 Resp 14 08/06/17 01:10 BP 152/87 H 08/06/17 00:21 Pulse Ox 97 08/06/17 00:00 - Labs Result Diagrams: 08/06/17 08:42 08/06/17 08:42 Labs: Laboratory Results - last 24 hr 08/05/17 08/05/17 08/05/17 18:39 19:00 19:00 WBC 11.9 H RBC 6.31 H Hgb 14.5 Hct 46.5 MCV 73.7 L MCH 23.0 L MCHC 31.2 L RDW 15.7 H Plt Count 341 MPV 9.9 Neut % (Auto) 81.5 H Lymph % (Auto) 10.7 L [place] % (Auto) 7.5 Eos % (Auto) 0.0 Baso % (Auto) 0.3 Neut # (Auto) 9.7 H Lymph # (Auto) 1.3 [place] # (Auto) 0.9 H Eos # (Auto) 0.0 Baso # (Auto) 0.0 pCO2 28 L pO2 34 L* HCO3 27.3 ABG pH 7.56 H ABG Total CO2 26.0 ABG O2 Saturation 75.8 L ABG Base Excess 4.0 H ABG Hemoglobin 15.3 ABG Carboxyhemoglobin 2.4 H POC ABG HHb (Measured) 22.8 H ABG Methemoglobin 3.2 H Edmund Test Yes ABG Potassium Hgb O2 Saturation 71.6 L Glucose Lactate FiO2 21.0 Crit Value Called To Dr cora kurtz Crit Value Called By Mj Crit Value Read Back Y Blood Gas Notified Time 1936 Sodium Potassium Chloride Carbon Dioxide Anion Gap BUN Creatinine Est GFR ( Amer) Est GFR (Non-Af Amer) POC Glucose (mg/dL) Random Glucose Calcium Troponin I < 0.0120 Lipase 100 Arterial Blood Potassium 08/05/17 08/05/17 08/06/17 19:00 22:09 05:21 WBC RBC Hgb Hct MCV MCH MCHC RDW Plt Count MPV Neut % (Auto) Lymph % (Auto) [place] % (Auto) Eos % (Auto) Baso % (Auto) Neut # (Auto) Lymph # (Auto) [place] # (Auto) Eos # (Auto) Baso # (Auto) pCO2 38 pO2 71 L HCO3 26.2 ABG pH 7.44 ABG Total CO2 27.0 ABG O2 Saturation 97.6 ABG Base Excess 1.7 ABG Hemoglobin ABG Carboxyhemoglobin POC ABG HHb (Measured) ABG Methemoglobin Edmund Test Yes ABG Potassium 3.9 Hgb O2 Saturation Glucose 332 H Lactate 4.4 H* FiO2 21.0 Crit Value Called To Cliff vaz md Crit Value Called By 333 Crit Value Read Back Y Blood Gas Notified Time 2217 Sodium 142 142.0 Potassium 3.7 Chloride 98 104.0 Carbon Dioxide 26 Anion Gap 22 H BUN 19 Creatinine 1.0 Est GFR ( Amer) > 60 Est GFR (Non-Af Amer) > 60 POC Glucose (mg/dL) 242 H Random Glucose 339 H Calcium 9.4 Troponin I Lipase Arterial Blood Potassium 3.9 Assessment & Plan - Assessment and Plan (Free Text) Assessment: GASTROPARESIS WITH VOMITING HYPERTENSION SVT HISTORY DM Plan: THE PATIENT SHOULD BE PLACED BACK ON TENORMEN 100 MGS PO DAILY FOR BOTH HYPERTENSION AND SVT ONCE HE IS ABLE TO HAVE PO INTAKE
[2017-08-06 08:51] LABS: BASO # 0.1 K/uL (0.0-0.2); BASO % 0.7 % (0.0-2.0); HEMOGLOBIN 13.7 g/dL (12.0-18.0); LYMPH # 1.7 K/uL (1.0-4.3); LYMPH % 9.9 % (20.0-40.0); MEAN CELL VOLUME 73.7 fl (80.0-94.0); MEAN CORPUSCULAR HEMOGLOBIN 23.4 pg (27.0-31.0); MEAN CORPUSCULAR HGB CONC 31.8 g/dL (33.0-37.0); MEAN PLATELET VOLUME 9.3 fl (7.2-11.7); MONO # 1.8 K/uL (0.0-0.8); MONO % 10.1 % (0.0-10.0); NEUT # 13.9 K/uL (1.8-7.0); NEUT % 79.3 % (50.0-75.0); NRBC % 0.1 % (0.0-0.0); PLATELET COUNT 307 K/uL (130-400); RBC 5.85 Mil/uL (4.40-5.90); RED CELL DISTRIBUTION WIDTH 15.6 % (11.5-14.5); WHITE BLOOD COUNT 17.5 K/uL (4.8-10.8)
[2017-08-06] MEDS ORDERED: Pantoprazole 40 mg EC Tab PO SCH (09:00)
[2017-08-06 09:09] LABS: ALBUMIN 4.3 g/dL (3.5-5.0); ALT/SGPT 36 U/L (21-72); AST/SGOT 22 U/L (17-59); BLOOD UREA NITROGEN 24 mg/dl (9-20); CALCIUM 8.5 mg/dL (8.4-10.2); GFR AFRICAN-AMERICAN > 60; GFR NON-AFRICAN AMERICAN > 60
--- NOTE | 2017-08-06 09:17 | CARD ---
APPROVED REPORT EKG Measurement Heart [id number] [id number] <Conclusion> Normal sinus rhythm Possible Left atrial enlargement Nonspecific T wave abnormality Prolonged QT Abnormal ECG
--- NOTE | 2017-08-06 09:29 | CARD ---
APPROVED REPORT EKG Measurement Heart [id number] [place] [id number] <Conclusion> Sinus rhythm with frequent premature ventricular complexes Possible Left atrial enlargement Prolonged QT Abnormal ECG
[2017-08-06] MEDS: Insulin Detemir 100 Units/ml Inj SC SCH ×2 (10:42→22:08)
[2017-08-06] MEDS: POLYETHYLENE GLYCOL 3350 17 GM/Dose PACKET PO SCH ×2 (10:43→13:19)
[2017-08-06] MEDS: Enoxaparin 30 mg Syringe SC SCH (10:43)
[2017-08-06 10:52] LABS: LYMPHOCYTE 10 % (20-50); MONOCYTE 7 % (0-10); NEUTROPHIL 79 % (42-75); REACTIVE LYMPHOCYTES 4 % (0-0); TOTAL CELLS COUNTED 100
[2017-08-06 10:53] LABS: ANISOCYTOSIS SLIGHT; PLATELET ESTIMATE NORMAL (NORMAL)
[2017-08-06 10:54] LABS: OVALOCYTES SLIGHT; TEARDROP CELLS SLIGHT
[2017-08-06 10:56] LABS: LARGE PLATELETS PRESENT
--- NOTE | 2017-08-06 11:43 | CT ---
PROCEDURE: CT Abdomen and Pelvis without intravenous contrast HISTORY: vomiting COMPARISON: CT scan of the abdomen and pelvis dated 06/20/2017. TECHNIQUE: Contiguous images were obtained from the domes of the diaphragms to the upper thighs without the administration of intravenous contrast. Oral contrast was not administered. Radiation dose: Total exam DLP = 598.1 mGy-cm. This CT exam was performed using one or more of the following dose reduction techniques: Automated exposure control, adjustment of the mA and/or kV according to patient size, and/or use of iterative reconstruction technique. FINDINGS: LOWER THORAX: Unremarkable. LIVER: Unremarkable. No gross lesion or ductal dilatation. GALLBLADDER AND BILE DUCTS: Unremarkable. PANCREAS: Unremarkable. No gross lesion or ductal dilatation. SPLEEN: Unremarkable. ADRENALS: Unremarkable. No mass. KIDNEYS AND URETERS: Punctate nonobstructive left interpolar calculus. No hydronephrosis. No solid mass. VASCULATURE: Unremarkable. No aortic aneurysm. BOWEL: Stable mild distal circumferential esophageal wall thickening. Colonic diverticulosis. No obstruction. No gross mural thickening. APPENDIX: Unremarkable. Normal appendix. PERITONEUM: Stable mild nonspecific hazy change in the central mesentery. Small right fat containing inguinal hernia. Unremarkable. No free fluid. No free air. LYMPH NODES: Unremarkable. No enlarged lymph nodes. BLADDER: Unremarkable. REPRODUCTIVE: Unremarkable. BONES: No acute fracture. L2 superior endplate Schmorl node. OTHER FINDINGS: None. IMPRESSION: No obstructive uropathy or evidence of recently passed genitourinary calculus. Stable findings as above.
--- NOTE | 2017-08-06 12:03 | RAD ---
HISTORY: HTN COMPARISON: Chest radiograph dated 05/07/2016. TECHNIQUE: Chest PA and lateral FINDINGS: LUNGS: No active pulmonary disease. PLEURA: No significant pleural effusion identified. No pneumothorax apparent. CARDIOVASCULAR: Normal. OSSEOUS STRUCTURES: Unchanged. VISUALIZED UPPER ABDOMEN: Normal. OTHER FINDINGS: None. IMPRESSION: No active disease.
[2017-08-06] MEDS: Insulin Lispro (humaLOG) 100 Units/ml Inj SC SCH ×3 (13:17→22:09)
[2017-08-06] MEDS: methIMAzole 5 MG TAB PO SCH ×3 (13:20→22:10)
[2017-08-06 13:39] LABS: ALB/GLOB RATIO 1.2 (1.0-2.1)
--- NOTE | 2017-08-06 17:34 | CP.PCM.HP ---
History of Present Illness - History of Present Illness History of Present Illness: 56 yo admitted for abd pain with N&V Present on Admission - Present on Admission Any Indicators Present on Admission: No Past Patient History - Past Medical History & Family History Past Medical History?: Yes - Past Social History Smoking Status: Never Smoked - CARDIAC Hx Hypertension: Yes - PULMONARY Hx Bronchitis: Yes Hx Pneumonia: Yes - NEUROLOGICAL Hx Neurological Disorder: Yes - HEENT Hx HEENT Problems: No - RENAL Hx Chronic Kidney Disease: No - ENDOCRINE/METABOLIC Hx Endocrine Disorders: Yes Hx Diabetes Mellitus Type 1: Yes - HEMATOLOGICAL/ONCOLOGICAL Hx Human Immunodeficiency Virus (HIV): No - INTEGUMENTARY Other/Comment: Diabetic ulcer left foot - MUSCULOSKELETAL/RHEUMATOLOGICAL Hx Falls: Yes Other/Comment: diabetic neuropathy. carpal tunnel right hand - GASTROINTESTINAL Other/Comment: gastroparesis - GENITOURINARY/GYNECOLOGICAL Hx Genitourinary Disorders: No - PSYCHIATRIC Hx Psychophysiologic Disorder: No Hx Substance Use: No - SURGICAL HISTORY Hx Tonsillectomy: Yes Other/Comment: Caprial tunnel right hand surgery - ANESTHESIA Hx Anesthesia: Yes Hx Anesthesia Reactions: No Hx Malignant Hyperthermia: No Meds Allergies/Adverse Reactions: Allergies Allergy/AdvReac Type Severity Reaction Status Date / Time iodine Allergy RASH Verified 08/05/17 18:03 shellfish derived Allergy RASH Verified 08/05/17 18:03 Physical Exam - Respiratory Exam Respiratory Exam: NORMAL BREATHING PATTERN - Cardiovascular Exam Cardiovascular Exam: REGULAR RHYTHM - GI/Abdominal Exam GI & Abdominal Exam: Normal Bowel Sounds Results - Vital Signs Recent Vital Signs: Last Vital Signs Temp 98.3 F 08/06/17 16:26 Pulse 95 H 08/06/17 16:26 Resp 20 08/06/17 16:26 BP 131/82 08/06/17 16:26 Pulse Ox 97 08/06/17 16:26 - Labs Result Diagrams: 08/06/17 08:42 08/06/17 08:42 Labs: Laboratory Results - last 24 hr 08/05/17 08/05/17 08/05/17 18:39 19:00 19:00 WBC 11.9 H RBC 6.31 H Hgb 14.5 Hct 46.5 MCV 73.7 L MCH 23.0 L MCHC 31.2 L RDW 15.7 H Plt Count 341 MPV 9.9 Neut % (Auto) 81.5 H Lymph % (Auto) 10.7 L Moore % (Auto) 7.5 Eos % (Auto) 0.0 Baso % (Auto) 0.3 Neut # (Auto) 9.7 H Lymph # (Auto) 1.3 Moore # (Auto) 0.9 H Eos # (Auto) 0.0 Baso # (Auto) 0.0 Neutrophils % (Manual) Lymphocytes % (Manual) Reactive Lymphs % Monocytes % (Manual) Platelet Estimate Large Platelets Anisocytosis (manual) Tear Drop Cells Ovalocytes pCO2 28 L pO2 34 L* HCO3 27.3 ABG pH 7.56 H ABG Total CO2 26.0 ABG O2 Saturation 75.8 L ABG Base Excess 4.0 H ABG Hemoglobin 15.3 ABG Carboxyhemoglobin 2.4 H POC ABG HHb (Measured) 22.8 H ABG Methemoglobin 3.2 H Edmund Test Yes ABG Potassium Hgb O2 Saturation 71.6 L Glucose Lactate FiO2 21.0 Crit Value Called To Dr cora kurtz Crit Value Called By Bradly Crit Value Read Back Y Blood Gas Notified Time 1936 Sodium Potassium Chloride Carbon Dioxide Anion Gap BUN Creatinine Est GFR ( Amer) Est GFR (Non-Af Amer) POC Glucose (mg/dL) Random Glucose Lactic Acid Calcium Total Bilirubin AST ALT Alkaline Phosphatase Troponin I < 0.0120 Total Protein Albumin Globulin Albumin/Globulin Ratio Lipase 100 Arterial Blood Potassium 08/05/17 08/05/17 08/06/17 19:00 22:09 05:21 WBC RBC Hgb Hct MCV MCH MCHC RDW Plt Count MPV Neut % (Auto) Lymph % (Auto) Moore % (Auto) Eos % (Auto) Baso % (Auto) Neut # (Auto) Lymph # (Auto) Moore # (Auto) Eos # (Auto) Baso # (Auto) Neutrophils % (Manual) Lymphocytes % (Manual) Reactive Lymphs % Monocytes % (Manual) Platelet Estimate Large Platelets Anisocytosis (manual) Tear Drop Cells Ovalocytes pCO2 38 pO2 71 L HCO3 26.2 ABG pH 7.44 ABG Total CO2 27.0 ABG O2 Saturation 97.6 ABG Base Excess 1.7 ABG Hemoglobin ABG Carboxyhemoglobin POC ABG HHb (Measured) ABG Methemoglobin Edmund Test Yes ABG Potassium 3.9 Hgb O2 Saturation Glucose 332 H Lactate 4.4 H* FiO2 21.0 Crit Value Called To Cliff vaz md Crit Value Called By 333 Crit Value Read Back Y Blood Gas Notified Time 2218 Sodium 142 142.0 Potassium 3.7 Chloride 98 104.0 Carbon Dioxide 26 Anion Gap 22 H BUN 19 Creatinine 1.0 Est GFR ( Amer) > 60 Est GFR (Non-Af Amer) > 60 POC Glucose (mg/dL) 242 H Random Glucose 339 H Lactic Acid Calcium 9.4 Total Bilirubin AST ALT Alkaline Phosphatase Troponin I Total Protein Albumin Globulin Albumin/Globulin Ratio Lipase Arterial Blood Potassium 3.9 08/06/17 08/06/17 08/06/17 08:42 08:42 08:42 WBC 17.5 H RBC 5.85 Hgb 13.7 Hct 43.1 MCV 73.7 L MCH 23.4 L MCHC 31.8 L RDW 15.6 H Plt Count 307 MPV 9.3 Neut % (Auto) 79.3 H Lymph % (Auto) 9.9 L Moore % (Auto) 10.1 H Eos % (Auto) 0.0 Baso % (Auto) 0.7 Neut # (Auto) 13.9 H Lymph # (Auto) 1.7 Moore # (Auto) 1.8 H Eos # (Auto) 0.0 Baso # (Auto) 0.1 Neutrophils % (Manual) 79 H Lymphocytes % (Manual) 10 L Reactive Lymphs % 4 H Monocytes % (Manual) 7 Platelet Estimate Normal Large Platelets Present Anisocytosis (manual) Slight Tear Drop Cells Slight Ovalocytes Slight pCO2 pO2 HCO3 ABG pH ABG Total CO2 ABG O2 Saturation ABG Base Excess ABG Hemoglobin ABG Carboxyhemoglobin POC ABG HHb (Measured) ABG Methemoglobin Edmund Test ABG Potassium Hgb O2 Saturation Glucose Lactate FiO2 Crit Value Called To Crit Value Called By Crit Value Read Back Blood Gas Notified Time Sodium 146 Potassium 3.9 Chloride 103 Carbon Dioxide 31 H Anion Gap 16 BUN 24 H Creatinine 1.0 Est GFR ( Amer) > 60 Est GFR (Non-Af Amer) > 60 POC Glucose (mg/dL) Random Glucose 224 H Lactic Acid 2.9 H Calcium 8.5 Total Bilirubin 1.1 AST 22 ALT 36 Alkaline Phosphatase 92 Troponin I Total Protein 7.7 Albumin 4.3 Globulin 3.4 Albumin/Globulin Ratio 1.2 Lipase Arterial Blood Potassium 08/06/17 08/06/17 11:36 15:57 WBC RBC Hgb Hct MCV MCH MCHC RDW Plt Count MPV Neut % (Auto) Lymph % (Auto) Moore % (Auto) Eos % (Auto) Baso % (Auto) Neut # (Auto) Lymph # (Auto) Moore # (Auto) Eos # (Auto) Baso # (Auto) Neutrophils % (Manual) Lymphocytes % (Manual) Reactive Lymphs % Monocytes % (Manual) Platelet Estimate Large Platelets Anisocytosis (manual) Tear Drop Cells Ovalocytes pCO2 pO2 HCO3 ABG pH ABG Total CO2 ABG O2 Saturation ABG Base Excess ABG Hemoglobin ABG Carboxyhemoglobin POC ABG HHb (Measured) ABG Methemoglobin Edmund Test ABG Potassium Hgb O2 Saturation Glucose Lactate FiO2 Crit Value Called To Crit Value Called By Crit Value Read Back Blood Gas Notified Time Sodium Potassium Chloride Carbon Dioxide Anion Gap BUN Creatinine Est GFR ( Amer) Est GFR (Non-Af Amer) POC Glucose (mg/dL) 218 H 289 H Random Glucose Lactic Acid Calcium Total Bilirubin AST ALT Alkaline Phosphatase Troponin I Total Protein Albumin Globulin Albumin/Globulin Ratio Lipase Arterial Blood Potassium Assessment & Plan - Assessment and Plan (Free Text) Assessment: Diabetic gastroparesis OIC Labs IVF GI NIDDM Hx Hyperthyroidism Endo Tapazole Hx SVT Cardiology - Date & Time Date: 08/06/17 Time: 22:22
[2017-08-06] MEDS ORDERED: Patient's Own Med (Rosuvastatin Calcium [Crestor] 10 MG) PO SCH (22:00)
--- NOTE | 2017-08-07 01:04 | CON ---
DATE: 08/06/2017 ENDOCRINOLOGY CONSULT LOCATION: Room 654, [address]. HISTORY OF PRESENT ILLNESS: This is a 56-year-old male with known history of type 1 insulin-dependent diabetes, currently using a [employer] insulin pump with very poor adherence to the aforementioned and is now admitted for further workup and management of intractable vomiting with upper abdominal pain and is also referred now for diabetic evaluation and management. PAST MEDICAL HISTORY: As mentioned above, history of type 1 insulin-dependent diabetes, supposedly using a Med[employer]onic insulin pump, but has very poor adherence to home glucose monitoring and compliance to the continuous usage of the insulin pump as noted. He apparently ran out of batteries and took off his insulin pump for the last day or so prior to admission, history of hypertension and dyslipidemia, history of diabetic retinopathy and polyneuropathy. He also has severe diabetic gastroparesis with recurrent admissions for exacerbations of the same, history of hyperthyroidism, currently on Tapazole given as 5 mg b.i.d. FAMILY HISTORY: Positive for diabetes, hypertension. SOCIAL HISTORY: Patient has significant history of polysubstance abuse, and currently, on methadone maintenance therapy. He has a supportive family, otherwise. REVIEW OF SYSTEMS: As mentioned above, admits to generalized body weakness with easy fatigability and tiredness and suboptimal energy level. Also admits to episodic dizziness and lightheadedness with bifrontal headaches and occasional visual blurring. No chest pains or palpitations or PND since oral intake has been variable and suboptimal with very nil portions because of intractable vomiting episodes noted overnight and also admits to marked polyuria, nocturia, polydipsia as noted. PHYSICAL EXAMINATION: GENERAL: This is an average built male, in no apparent distress. VITAL SIGNS: Blood pressure of 140/80, pulse of 70 beats per minute and regular, temperature 98, respirations 20. HEENT: Head normocephalic. Eyes anicteric with pink conjunctivae. Funduscopy not possible at this time. Ears, nose and throat, otherwise, normal. NECK: Supple. Thyroid gland is normal in size. No carotid bruits or cervical adenopathy. CARDIOPULMONARY: Some adynamic precordium. S1, S2 is rapid and regular. LUNGS: Clear to auscultation. ABDOMEN: Flat, soft with positive bowel sounds. EXTREMITIES: No peripheral edema. Pulses are +2 bilaterally. LABORATORY DATA: His chemistry showed a BUN of 19, sodium 142, potassium 3.7, chloride 98, CO2 of 26, glucose 339, and creatinine 1. The subsequent glucose was 242 mg/dL. ASSESSMENT: This is a 56-year-old male with uncontrolled and decompensated type 1 insulin-dependent diabetes, presenting here with intractable nausea, dyspepsia, and vomiting with underlying severe diabetic gastroparesis as noted. She also has diabetic microvascular complications of retinopathy and polyneuropathy with diabetic macrovascular complications of coronary artery disease and peripheral arterial disease and vasculopathy. PLAN OF MANAGEMENT: As discussed with the patient and staff, we will modify his current insulin regimen and lower the coverage scale to obviate hypoglycemia and detailed orders have been given using NovoLog insulin at dinnertime today as ordered. We will add basal insulin even if he is n.p.o. because of ongoing gluconeogenesis from the liver, and we will add Levemir given as 8 units subcu every 12 hours at 10 a.m. and 10 p.m. daily as given. We will continue his Tapazole given as 5 mg t.i.d. and obtain serial thyroid studies and adjust his dose regimen accordingly. A hemoglobin A1c will be done to confirm his prior glycemic control and baseline lipid panel and serum cortisol levels will be obtained. We will follow with you. Rizwana Raygoza MD
[2017-08-07 07:13] LABS: ALB/GLOB RATIO 1.1 (1.0-2.1); ALBUMIN 4.2 g/dL (3.5-5.0); ALT/SGPT 33 U/L (21-72); AST/SGOT 19 U/L (17-59); BLOOD UREA NITROGEN 23 mg/dl (9-20); CALCIUM 8.6 mg/dL (8.4-10.2); GFR AFRICAN-AMERICAN > 60; GFR NON-AFRICAN AMERICAN > 60; HDL CHOLESTEROL 39 MG/DL (30-70); LIPASE 177 U/L (23-300)
[2017-08-07 07:24] LABS: T4 9.67 ug/dl (5.5-11.0)
[2017-08-07 07:27] LABS: LDL CHOLESTEROL 77 mg/dL (0-129)
[2017-08-07] MEDS: Insulin Lispro (humaLOG) 100 Units/ml Inj SC SCH ×7 (07:30→22:14)
--- NOTE | 2017-08-07 08:29 | CP.PCM.CON ---
<Amada Metzger - Last Filed: 08/07/17 10:41> History of Present Illness - History of Present Illness History of Present Illness: Gastroenterology Fellow/PGY5 Consult Note 56 year old male with PMH of uncontrolled T1DM on insulin pump complicated by Gastroparesis/retinopathy/neuropathy, HTN, DLD, prior heroin abuse on methadone , and opioid induced constipation presenting with vomiting. Patient describes he changed his diet to salads and liquid intake over the last 1-2 weeks to attempt to lose weight. He notes on Friday that his stomach started to feel hard that progressively worsened to sensation of tensing up followed by 6-8 episodes of liquid vomitus leading to ER presentation. He states it seemed as though the liquids he had drank for the last few days did not digest. Associated belching and mild upper abdominal soreness. Notes daily hard stool bowel movmeent with three hard stools on day of admission. Admits he has not been using Colace on daily basis. Continues to use zofran at home. Denies hematemesis, melena, hematochezia, dysphagia, odynophagia, or unintentional weight loss. EGD and colonoscopy 03/2016 showed erosive H. pylori negative gastritis, aperistalsis, 8mm cecal tubular adenoma, valdovinos-diverticulosis, and internal hemorrhoids. Family History- denies stomach cancer, colon cancer Social History- prior polysubstance abuse-tobacco, heroin-on methadone, prior 1- 2 glasses of wine twice a week Surgical History-right foot osteomyelitis debridement, B/L forearm surgeries Review of Systems - Review of Systems Review of Systems: 12-point review of systems negative except for as above Past Patient History - Past Medical History & Family History Past Medical History?: Yes - Past Social History Smoking Status: Never Smoked - CARDIAC Hx Hypertension: Yes - PULMONARY Hx Bronchitis: Yes Hx Pneumonia: Yes - NEUROLOGICAL Hx Neurological Disorder: Yes - HEENT Hx HEENT Problems: No - RENAL Hx Chronic Kidney Disease: No - ENDOCRINE/METABOLIC Hx Endocrine Disorders: Yes Hx Diabetes Mellitus Type 1: Yes - HEMATOLOGICAL/ONCOLOGICAL Hx Human Immunodeficiency Virus (HIV): No - INTEGUMENTARY Other/Comment: Diabetic ulcer left foot - MUSCULOSKELETAL/RHEUMATOLOGICAL Hx Falls: Yes Other/Comment: diabetic neuropathy. carpal tunnel right hand - GASTROINTESTINAL Other/Comment: gastroparesis - GENITOURINARY/GYNECOLOGICAL Hx Genitourinary Disorders: No - PSYCHIATRIC Hx Psychophysiologic Disorder: No Hx Substance Use: No - SURGICAL HISTORY Hx Tonsillectomy: Yes Other/Comment: Caprial tunnel right hand surgery - ANESTHESIA Hx Anesthesia: Yes Hx Anesthesia Reactions: No Hx Malignant Hyperthermia: No Meds Allergies/Adverse Reactions: Allergies Allergy/AdvReac Type Severity Reaction Status Date / Time iodine Allergy RASH Verified 08/05/17 18:03 shellfish derived Allergy RASH Verified 08/05/17 18:03 - Medications Medications: Current Medications Atorvastatin Calcium (Lipitor) 20 mg PO HS [facility] Last Admin: 08/06/17 22:07 Dose: 20 mg Enoxaparin Sodium (Lovenox) 30 mg SC DAILY [facility] PRN Reason: Protocol Last Admin: 08/06/17 10:43 Dose: 30 mg Metoclopramide HCl 10 mg/ (Sodium Chloride) 52 mls @ 300 mls/hr IVP ONCE PRN PRN Reason: Nausea/Vomiting Last Admin: 08/05/17 19:50 Dose: 50 mls/hr Insulin Detemir (Levemir) 12 units SC HS [facility] Insulin Human Lispro (Humalog) 4 units SC AC [facility] Insulin Human Lispro (Humalog) 0 units SC ACHS [facility] Methadone HCl (Methadone) 5 mg PO Q8 PRN PRN Reason: Pain, severe (8-10) Methadone HCl (Methadone) 10 mg PO BID [facility] Last Admin: 08/06/17 17:09 Dose: 10 mg Methimazole (Tapazole) 5 mg PO BID [facility] Last Admin: 08/06/17 22:10 Dose: 5 mg Metoclopramide HCl (Reglan) 10 mg IVP Q8 PRN PRN Reason: Nausea/Vomiting Ondansetron HCl (Zofran Inj) 4 mg IVP Q4 PRN PRN Reason: Nausea/Vomiting Last Admin: 08/06/17 22:40 Dose: 4 mg Pantoprazole Sodium (Protonix Inj) 40 mg IVP DAILY [facility] Last Admin: 08/06/17 10:53 Dose: 40 mg Polyethylene Glycol (Miralax) 17 gm PO DAILY [facility] Last Admin: 08/06/17 13:19 Dose: Not Given Pregabalin (Lyrica) 100 mg PO BID [facility] Last Admin: 08/06/17 17:10 Dose: 100 mg Physical Exam - Constitutional Appears: Non-toxic, No Acute Distress - Head Exam Head Exam: ATRAUMATIC, NORMOCEPHALIC - Eye Exam Eye Exam: EOMI, PERRL. absent: Scleral icterus Pupil Exam: PERRL. absent: Miosis, Mydriatic - ENT Exam ENT Exam: Mucous Membranes Moist, Normal Oropharynx - Neck Exam Neck exam: Positive for: Full Rom, Normal Inspection - Respiratory Exam Respiratory Exam: Clear to Auscultation Bilateral. absent: Rales, Rhonchi, Wheezes - Cardiovascular Exam Cardiovascular Exam: RRR, +S1, +S2. absent: Gallop, Rubs - GI/Abdominal Exam GI & Abdominal Exam: Normal Bowel Sounds, Soft, Tenderness. absent: Distended, Firm, Guarding, Organomegaly, Rebound, Rigid Additional comments: mild upper abdominal tenderness to palpation - Extremities Exam Extremities exam: Positive for: normal inspection. Negative for: pedal edema - Neurological Exam Neurological exam: Alert, Oriented x3 - Psychiatric Exam Psychiatric exam: Normal Affect, Normal Mood - Skin Skin Exam: Dry, Intact, Normal Color, Warm Results - Vital Signs Recent Vital Signs: Last Vital Signs Temp 99 F 08/07/17 00:14 Pulse 88 08/07/17 00:14 Resp 20 08/07/17 00:14 BP 148/99 H 08/07/17 00:14 Pulse Ox 96 08/07/17 00:14 - Labs Result Diagrams: 08/06/17 08:42 08/07/17 05:40 Labs: Laboratory Results - last 24 hr 08/06/17 08/06/17 08/06/17 08:42 08:42 08:42 WBC 17.5 H RBC 5.85 Hgb 13.7 Hct 43.1 MCV 73.7 L MCH 23.4 L MCHC 31.8 L RDW 15.6 H Plt Count 307 MPV 9.3 Neut % (Auto) 79.3 H Lymph % (Auto) 9.9 L [place] % (Auto) 10.1 H Eos % (Auto) 0.0 Baso % (Auto) 0.7 Neut # (Auto) 13.9 H Lymph # (Auto) 1.7 [place] # (Auto) 1.8 H Eos # (Auto) 0.0 Baso # (Auto) 0.1 Neutrophils % (Manual) 79 H Lymphocytes % (Manual) 10 L Reactive Lymphs % 4 H Monocytes % (Manual) 7 Platelet Estimate Normal Large Platelets Present Anisocytosis (manual) Slight Tear Drop Cells Slight Ovalocytes Slight Sodium 146 Potassium 3.9 Chloride 103 Carbon Dioxide 31 H Anion Gap 16 BUN 24 H Creatinine 1.0 Est GFR ( Amer) > 60 Est GFR (Non-Af Amer) > 60 POC Glucose (mg/dL) Random Glucose 224 H Lactic Acid 2.9 H Calcium 8.5 Total Bilirubin 1.1 AST 22 ALT 36 Alkaline Phosphatase 92 Total Protein 7.7 Albumin 4.3 Globulin 3.4 Albumin/Globulin Ratio 1.2 Triglycerides Cholesterol LDL Cholesterol Direct HDL Cholesterol Lipase Thyroxine (T4) TSH 3rd Generation 08/06/17 08/06/17 08/06/17 11:36 15:57 22:08 WBC RBC Hgb Hct MCV MCH MCHC RDW Plt Count MPV Neut % (Auto) Lymph % (Auto) [place] % (Auto) Eos % (Auto) Baso % (Auto) Neut # (Auto) Lymph # (Auto) [place] # (Auto) Eos # (Auto) Baso # (Auto) Neutrophils % (Manual) Lymphocytes % (Manual) Reactive Lymphs % Monocytes % (Manual) Platelet Estimate Large Platelets Anisocytosis (manual) Tear Drop Cells Ovalocytes Sodium Potassium Chloride Carbon Dioxide Anion Gap BUN Creatinine Est GFR ( Amer) Est GFR (Non-Af Amer) POC Glucose (mg/dL) 218 H 289 H 241 H Random Glucose Lactic Acid Calcium Total Bilirubin AST ALT Alkaline Phosphatase Total Protein Albumin Globulin Albumin/Globulin Ratio Triglycerides Cholesterol LDL Cholesterol Direct HDL Cholesterol Lipase Thyroxine (T4) TSH 3rd Generation 08/07/17 08/07/17 05:26 05:40 WBC RBC Hgb Hct MCV MCH MCHC RDW Plt Count MPV Neut % (Auto) Lymph % (Auto) [place] % (Auto) Eos % (Auto) Baso % (Auto) Neut # (Auto) Lymph # (Auto) [place] # (Auto) Eos # (Auto) Baso # (Auto) Neutrophils % (Manual) Lymphocytes % (Manual) Reactive Lymphs % Monocytes % (Manual) Platelet Estimate Large Platelets Anisocytosis (manual) Tear Drop Cells Ovalocytes Sodium 141 Potassium 3.8 Chloride 101 Carbon Dioxide 27 Anion Gap 17 BUN 23 H Creatinine 0.9 Est GFR ( Amer) > 60 Est GFR (Non-Af Amer) > 60 POC Glucose (mg/dL) 216 H Random Glucose 213 H Lactic Acid Calcium 8.6 Total Bilirubin 1.5 H AST 19 ALT 33 Alkaline Phosphatase 96 Total Protein 7.9 Albumin 4.2 Globulin 3.7 Albumin/Globulin Ratio 1.1 Triglycerides 120 D Cholesterol 147 LDL Cholesterol Direct 77 HDL Cholesterol 39 Lipase 177 Thyroxine (T4) 9.67 TSH 3rd Generation 0.37 L Assessment & Plan - Assessment and Plan (Free Text) Assessment: 56 year old male with PMH of uncontrolled T1DM on insulin pump complicated by Gastroparesis/retinopathy/neuropathy, HTN, DLD, prior heroin abuse on methadone , and opioid induced constipation presenting with vomiting. Active treatment of vomiting 2/2 gastroparesis and constipation. EGD and colonoscopy 03/2016 showed erosive H. pylori negative gastritis, aperistalsis, 8mm cecal tubular adenoma, valdovinos-diverticulosis, and internal hemorrhoids. Plan: -CT A/P- no acute abdominopelvic pathology -continue zofran PRN for nausea/vomiting relief -tolerating clear liquids, ensure following diabetic diet -advance to small frequent meals-bland cardiac diabetic low fat low fiber diet as tolerated -counselled on bowel regimen, continue Miralax daily -counselled to reschedule appointment at [facility] with GI that he canceled yesterday due to current admission -prior SIBO treatment 05/2017 , followed up with DR mancia [facility] 2 weeks ago- endorses recommended re-treatment if develop symptoms of bloating/gas -counselled on outpatient follow up with established GI at [facility] and referral for possible gastric pacemaker placement evaluation <Eamon Mac - Last Filed: 08/07/17 14:55> Meds - Medications Medications: Current Medications Atenolol (Tenormin) 50 mg PO DAILY [facility] Last Admin: 08/07/17 12:29 Dose: 50 mg Atorvastatin Calcium (Lipitor) 20 mg PO HS [facility] Last Admin: 08/06/17 22:07 Dose: 20 mg Enoxaparin Sodium (Lovenox) 30 mg SC DAILY [facility] PRN Reason: Protocol Last Admin: 08/07/17 09:29 Dose: 30 mg Metoclopramide HCl 10 mg/ (Sodium Chloride) 52 mls @ 300 mls/hr IVP ONCE PRN PRN Reason: Nausea/Vomiting Last Admin: 08/05/17 19:50 Dose: 50 mls/hr Insulin Detemir (Levemir) 16 units SC [facility] Insulin Human Lispro (Humalog) 0 units SC ACHS [facility] Last Admin: 08/07/17 12:33 Dose: Not Given Insulin Human Lispro (Humalog) 6 units SC AC [facility] Methadone HCl (Methadone) 5 mg PO Q8 PRN PRN Reason: Pain, severe (8-10) Methadone HCl (Methadone) 10 mg PO BID [facility] Last Admin: 08/07/17 09:01 Dose: 10 mg Methimazole (Tapazole) 5 mg PO BID [facility] Last Admin: 08/07/17 09:03 Dose: 5 mg Metoclopramide HCl (Reglan) 10 mg IVP Q8 PRN PRN Reason: Nausea/Vomiting Ondansetron HCl (Zofran Inj) 4 mg IVP Q4 PRN PRN Reason: Nausea/Vomiting Last Admin: 08/07/17 12:31 Dose: 4 mg Pantoprazole Sodium (Protonix Inj) 40 mg IVP DAILY [facility] Last Admin: 08/07/17 09:03 Dose: 40 mg Polyethylene Glycol (Miralax) 17 gm PO DAILY [facility] Last Admin: 08/07/17 12:10 Dose: Not Given Pregabalin (Lyrica) 100 mg PO BID [facility] Last Admin: 08/07/17 12:10 Dose: Not Given Results - Vital Signs Recent Vital Signs: Last Vital Signs Temp 98.1 F 08/07/17 08:47 Pulse 87 08/07/17 12:29 Resp 18 08/07/17 08:47 BP 137/88 08/07/17 12:29 Pulse Ox 100 08/07/17 08:47 - Labs Result Diagrams: 08/07/17 10:55 08/07/17 05:40 Labs: Laboratory Results - last 24 hr 08/06/17 08/06/17 08/07/17 15:57 22:08 05:26 WBC RBC Hgb Hct MCV MCH MCHC RDW Plt Count Sodium Potassium Chloride Carbon Dioxide Anion Gap BUN Creatinine Est GFR ( Amer) Est GFR (Non-Af Amer) POC Glucose (mg/dL) 289 H 241 H 216 H Random Glucose Hemoglobin A1c Calcium Total Bilirubin AST ALT Alkaline Phosphatase Total Protein Albumin Globulin Albumin/Globulin Ratio Triglycerides Cholesterol LDL Cholesterol Direct HDL Cholesterol Lipase Thyroxine (T4) TSH 3rd Generation 08/07/17 08/07/17 08/07/17 05:40 05:40 10:48 WBC RBC Hgb Hct MCV MCH MCHC RDW Plt Count Sodium 141 Potassium 3.8 Chloride 101 Carbon Dioxide 27 Anion Gap 17 BUN 23 H Creatinine 0.9 Est GFR ( Amer) > 60 Est GFR (Non-Af Amer) > 60 POC Glucose (mg/dL) 205 H Random Glucose 213 H Hemoglobin A1c 9.5 H Calcium 8.6 Total Bilirubin 1.5 H AST 19 ALT 33 Alkaline Phosphatase 96 Total Protein 7.9 Albumin 4.2 Globulin 3.7 Albumin/Globulin Ratio 1.1 Triglycerides 120 D Cholesterol 147 LDL Cholesterol Direct 77 HDL Cholesterol 39 Lipase 177 Thyroxine (T4) 9.67 TSH 3rd Generation 0.37 L 08/07/17 10:55 WBC 11.3 H RBC 5.66 Hgb 13.3 Hct 41.3 MCV 73.0 L MCH 23.5 L MCHC 32.1 L RDW 15.5 H Plt Count 271 Sodium Potassium Chloride Carbon Dioxide Anion Gap BUN Creatinine Est GFR ( Amer) Est GFR (Non-Af Amer) POC Glucose (mg/dL) Random Glucose Hemoglobin A1c Calcium Total Bilirubin AST ALT Alkaline Phosphatase Total Protein Albumin Globulin Albumin/Globulin Ratio Triglycerides Cholesterol LDL Cholesterol Direct HDL Cholesterol Lipase Thyroxine (T4) TSH 3rd Generation Attending/Attestation - Attestation I have personally seen and examined this patient.: Yes I have fully participated in the care of the patient.: Yes I have reviewed all pertinent clinical information: Yes Notes (Text): 08/07/17 14:50 This is a 56 year old male with PMH of uncontrolled T1DM on insulin pump complicated by Gastroparesis/retinopathy/neuropathy, HTN, DLD, prior heroin abuse on methadone, and opioid induced constipation presenting with vomiting due to gastroparesis and constipation. EGD and colonoscopy 03/2016 showed erosive H. pylori negative gastritis, aperistalsis, 8mm cecal tubular adenoma, valdovinos-diverticulosis, and internal hemorrhoids. last seen as outpatient in 2017. Since then he has been following at [facility] for further GI work up. Was diagnosed with SIBO and started on rifaximin after which he felt better. Ct unremarkable. Has been on reglan for more than 3 months hence will avoid. Small frequent meals. Continue zofran prn and supportive care. Low fat and fiber diet -counselled on outpatient follow up with established GI at [facility] and referral for possible gastric pacemaker placement evaluation
[2017-08-07] MEDS: methIMAzole 5 MG TAB PO SCH ×2 (09:03→16:38)
--- NOTE | 2017-08-07 09:06 | CP.PCM.PN ---
Subjective - Date & Time of Evaluation Date of Evaluation: 08/07/17 Time of Evaluation: 08:30 - Subjective Subjective: FEELS A LITTLE BETTER TODAY BELCHING LESS KEEPING MEDICATION TABLETS DOWN Objective - Vital Signs/Intake and Output Vital Signs (last 24 hours): Temp Pulse Resp BP Pulse Ox 98.1 F 76 18 115/71 100 08/07/17 08:47 08/07/17 08:47 08/07/17 08:47 08/07/17 08:47 08/07/17 08:47 - Medications Medications: Current Medications Atenolol (Tenormin) 50 mg PO DAILY [facility] Atorvastatin Calcium (Lipitor) 20 mg PO HS [facility] Last Admin: 08/06/17 22:07 Dose: 20 mg Enoxaparin Sodium (Lovenox) 30 mg SC DAILY [facility] PRN Reason: Protocol Last Admin: 08/06/17 10:43 Dose: 30 mg Metoclopramide HCl 10 mg/ (Sodium Chloride) 52 mls @ 300 mls/hr IVP ONCE PRN PRN Reason: Nausea/Vomiting Last Admin: 08/05/17 19:50 Dose: 50 mls/hr Insulin Detemir (Levemir) 12 units SC HS [facility] Insulin Human Lispro (Humalog) 4 units SC AC [facility] Insulin Human Lispro (Humalog) 0 units SC ACHS [facility] Methadone HCl (Methadone) 5 mg PO Q8 PRN PRN Reason: Pain, severe (8-10) Methadone HCl (Methadone) 10 mg PO BID [facility] Last Admin: 08/07/17 09:01 Dose: 10 mg Methimazole (Tapazole) 5 mg PO BID [facility] Last Admin: 08/06/17 22:10 Dose: 5 mg Metoclopramide HCl (Reglan) 10 mg IVP Q8 PRN PRN Reason: Nausea/Vomiting Ondansetron HCl (Zofran Inj) 4 mg IVP Q4 PRN PRN Reason: Nausea/Vomiting Last Admin: 08/07/17 09:01 Dose: 4 mg Pantoprazole Sodium (Protonix Inj) 40 mg IVP DAILY [facility] Last Admin: 08/06/17 10:53 Dose: 40 mg Polyethylene Glycol (Miralax) 17 gm PO DAILY [facility] Last Admin: 08/06/17 13:19 Dose: Not Given Pregabalin (Lyrica) 100 mg PO BID [facility] Last Admin: 08/06/17 17:10 Dose: 100 mg - Labs Labs: 08/06/17 08:42 08/07/17 05:40 - Respiratory Exam Respiratory Exam: Clear to Ausculation Bilateral - Cardiovascular Exam Cardiovascular Exam: REGULAR RHYTHM, +S1, +S2 Assessment and Plan - Assessment and Plan (Free Text) Assessment: GASTROPARESIS HYPERTENSION SVT HISTORY DM Plan: WILL RESUME TENORMEN 50 MGS PO DAILY AND OBSERVE BLOOD PRESSURE AND HEART RATE
[2017-08-07] MEDS: Enoxaparin 30 mg Syringe SC SCH (09:29)
[2017-08-07 11:35] LABS: HEMOGLOBIN 13.3 g/dL (12.0-18.0); MEAN CORPUSCULAR HEMOGLOBIN 23.5 pg (27.0-31.0); MEAN CORPUSCULAR HGB CONC 32.1 g/dL (33.0-37.0); RBC 5.66 Mil/uL (4.40-5.90); RED CELL DISTRIBUTION WIDTH 15.5 % (11.5-14.5); WHITE BLOOD COUNT 11.3 K/uL (4.8-10.8)
[2017-08-07] MEDS: POLYETHYLENE GLYCOL 3350 17 GM/Dose PACKET PO SCH (12:10)
--- NOTE | 2017-08-07 19:28 | PN ---
DATE: 08/07/2017 ENDO FOLLOWUP NOTE LOCATION: In room 654. SUBJECTIVE: This is a 56-year-old male with recent uncontrolled type 1 insulin-dependent diabetes, presenting here with intractable vomiting, acute exacerbation of diabetic gastroparesis and is now being followed closely for metabolic management. His glycemic levels are fluctuating, but improved and the latest glucose levels have ranged from 205 to 216 and 241 mg/dL. His chemistry showed a BUN of 23, sodium 141, potassium 3.8, chloride 101, CO2 of 27, glucose 213, and creatinine 0.9. ASSESSMENT: This is a 56-year-old male with uncontrolled and decompensated type 1 insulin-dependent diabetes, presenting here with acute exacerbation of diabetic gastroparesis with frequent and recurrent admissions for the same as noted. He also has diabetic microvascular complications of retinopathy and polyneuropathy with diabetic macrovascular complications of coronary artery disease and peripheral arterial disease and vasculopathy. PLAN OF MANAGEMENT: As discussed with the patient and staff, we will modify once again his basal and bolus insulin regimen to allow for dose equilibration and increase the Levemir to 16 units subcu at bedtime daily to start tonight. We will also increase the Humalog to 6 units subcu t.i.d. before meals to start at dinnertime today as ordered. We will titrate incrementally as indicated to optimize metabolic control. We will obtain serial chemistries and supplement accordingly as needed. We will also titrate his dose regimen to optimize metabolic control. We will increase the Humalog to 6 units subcu t.i.d. before meals to start today as ordered. We will also increase the basal insulin given overnight to Levemir given as 16 units subcu at bedtime b.i.d. as given. We will titrate incrementally as indicated to optimize metabolic control. We will also obtain serial chemistries and supplement accordingly needed. We will also modify his diet regimen and advance him to a soft mechanical with moderate consistent carb content to start at dinnertime today as ordered. We will observe his tolerance thereof and whether there is a recurrence also of the vomiting episodes as noted. We will continue IV hydration as given. We will discuss with the patient regarding the use of his [employer] insulin pump and to really reinforce the need for adherence and compliance if he is still being more optimal metabolic control as the outpatient. We will follow with you. Rizwana Raygoza MD [facility] # [id number]
--- NOTE | 2017-08-07 20:44 | CP.PCM.PN ---
Subjective - Date & Time of Evaluation Date of Evaluation: 08/07/17 Time of Evaluation: 22:22 - Subjective Subjective: Above noted Objective - Vital Signs/Intake and Output Vital Signs (last 24 hours): Temp Pulse Resp BP Pulse Ox 97.5 F L 83 18 128/80 100 08/07/17 17:00 08/07/17 17:00 08/07/17 17:00 08/07/17 17:00 08/07/17 17:00 - Medications Medications: Current Medications Atenolol (Tenormin) 50 mg PO DAILY [facility] Last Admin: 08/07/17 12:29 Dose: 50 mg Atorvastatin Calcium (Lipitor) 20 mg PO [facility] Last Admin: 08/06/17 22:07 Dose: 20 mg Enoxaparin Sodium (Lovenox) 30 mg SC DAILY [facility] PRN Reason: Protocol Last Admin: 08/07/17 09:29 Dose: 30 mg Metoclopramide HCl 10 mg/ (Sodium Chloride) 52 mls @ 300 mls/hr IVP ONCE PRN PRN Reason: Nausea/Vomiting Last Admin: 08/05/17 19:50 Dose: 50 mls/hr Sodium Chloride (Sodium Chloride 0.45%) 1,000 mls @ 100 mls/hr IV .Q10H [facility] Stop: 08/08/17 18:58 Insulin Detemir (Levemir) 16 units SC HS [facility] Insulin Human Lispro (Humalog) 0 units SC ACHS [facility] Last Admin: 08/07/17 16:29 Dose: Not Given Insulin Human Lispro (Humalog) 6 units SC AC [facility] Last Admin: 08/07/17 16:44 Dose: 6 u Lactic Acid (Lac-Hydrin 12% Cream (140 G)) 1 ea TOP BID [facility] Methadone HCl (Methadone) 5 mg PO Q8 PRN PRN Reason: Pain, severe (8-10) Methadone HCl (Methadone) 10 mg PO BID [facility] Last Admin: 08/07/17 16:36 Dose: 10 mg Methimazole (Tapazole) 5 mg PO BID [facility] Last Admin: 08/07/17 16:38 Dose: 5 mg Metoclopramide HCl (Reglan) 10 mg IVP Q8 PRN PRN Reason: Nausea/Vomiting Ondansetron HCl (Zofran Inj) 4 mg IVP Q4 PRN PRN Reason: Nausea/Vomiting Last Admin: 08/07/17 16:41 Dose: 4 mg Pantoprazole Sodium (Protonix Inj) 40 mg IVP DAILY [facility] Last Admin: 08/07/17 09:03 Dose: 40 mg Polyethylene Glycol (Miralax) 17 gm PO DAILY [facility] Last Admin: 08/07/17 12:10 Dose: Not Given Pregabalin (Lyrica) 100 mg PO BID [facility] Last Admin: 08/07/17 16:41 Dose: 100 mg - Labs Labs: 08/07/17 10:55 08/07/17 05:40 - Respiratory Exam Respiratory Exam: NORMAL BREATHING PATTERN - Cardiovascular Exam Cardiovascular Exam: REGULAR RHYTHM - GI/Abdominal Exam GI & Abdominal Exam: Normal Bowel Sounds Assessment and Plan - Assessment and Plan (Free Text) Assessment: Diabetic gastroparesis OIC SIBO Labs IVF GI Endo NIDDM Hx Hyperthyroidism Endo Tapazole Hx SVT Cardiology Chronic pain Opiods
[2017-08-07] MEDS ORDERED: Insulin Detemir 100 Units/ml Inj SC SCH (22:00)
[2017-08-07] MEDS: Sodium Chloride 0.45% 1,000 ML IV SCH (22:12)
[2017-08-07] MEDS ORDERED: DiphenhydrAMINE 50 mg/ml Inj IVP ONE (23:26)
[2017-08-08 06:57] LABS: MEAN CELL VOLUME 73.7 fl (80.0-94.0); MEAN CORPUSCULAR HEMOGLOBIN 23.3 pg (27.0-31.0); MEAN CORPUSCULAR HGB CONC 31.6 g/dL (33.0-37.0); RBC 5.56 Mil/uL (4.40-5.90); RED CELL DISTRIBUTION WIDTH 15.5 % (11.5-14.5); WHITE BLOOD COUNT 11.4 K/uL (4.8-10.8)
[2017-08-08 07:24] LABS: BLOOD UREA NITROGEN 29 mg/dl (9-20); GFR AFRICAN-AMERICAN > 60; GFR NON-AFRICAN AMERICAN > 60
[2017-08-08] MEDS: Insulin Lispro (humaLOG) 100 Units/ml Inj SC SCH ×7 (09:01→21:41)
[2017-08-08] MEDS: Ammonium Lactate 12% Cream (140 g) TOP SCH ×2 (09:03→16:22)
[2017-08-08] MEDS: Enoxaparin 30 mg Syringe SC SCH (09:03)
[2017-08-08] MEDS: POLYETHYLENE GLYCOL 3350 17 GM/Dose PACKET PO SCH (09:04)
[2017-08-08] MEDS: methIMAzole 5 MG TAB PO SCH ×2 (09:04→16:22)
[2017-08-08] MEDS: Sodium Chloride 0.45% 1,000 ML IV SCH ×2 (09:04→18:52)
[2017-08-08] MEDS: Sucralfate 1 gm/10 ml Oral Susp UD PO SCH ×4 (10:34→21:44)
--- NOTE | 2017-08-08 12:01 | CP.PCM.PN ---
Subjective - Date & Time of Evaluation Date of Evaluation: 08/08/17 Time of Evaluation: 10:00 (;) - Subjective Subjective: NO CHEST PAIN, PALPITATIONS OR SOB ABLE TO KEEP FOODS DOWN BETTER, LESS BELCHING Objective - Vital Signs/Intake and Output Vital Signs (last 24 hours): Temp Pulse Resp BP Pulse Ox 98 F 94 H 18 112/71 96 08/08/17 08:30 08/08/17 09:04 08/08/17 08:30 08/08/17 09:04 08/08/17 08:30 - Medications Medications: Current Medications Atenolol (Tenormin) 50 mg PO DAILY [facility] Last Admin: 08/08/17 09:04 Dose: 50 mg Atorvastatin Calcium (Lipitor) 20 mg PO HS [facility] Last Admin: 08/07/17 22:10 Dose: 20 mg Enoxaparin Sodium (Lovenox) 30 mg SC DAILY [facility] PRN Reason: Protocol Last Admin: 08/08/17 09:03 Dose: 30 mg Metoclopramide HCl 10 mg/ (Sodium Chloride) 52 mls @ 300 mls/hr IVP ONCE PRN PRN Reason: Nausea/Vomiting Last Admin: 08/05/17 19:50 Dose: 50 mls/hr Sodium Chloride (Sodium Chloride 0.45%) 1,000 mls @ 100 mls/hr IV .Q10H [facility] Stop: 08/08/17 18:58 Last Admin: 08/08/17 09:04 Dose: Not Given Insulin Detemir (Levemir) 16 units SC HS [facility] Insulin Human Lispro (Humalog) 0 units SC ACHS [facility] Last Admin: 08/08/17 09:01 Dose: Not Given Insulin Human Lispro (Humalog) 6 units SC AC [facility] Last Admin: 08/08/17 09:01 Dose: 6 u Lactic Acid (Lac-Hydrin 12% Cream (140 G)) 1 ea TOP BID [facility] Last Admin: 08/08/17 09:03 Dose: 1 applic Methadone HCl (Methadone) 5 mg PO Q8 PRN PRN Reason: Pain, severe (8-10) Methadone HCl (Methadone) 10 mg PO BID [facility] Last Admin: 08/08/17 09:07 Dose: 10 mg Methimazole (Tapazole) 5 mg PO BID [facility] Last Admin: 08/08/17 09:04 Dose: 5 mg Metoclopramide HCl (Reglan) 10 mg IVP Q8 PRN PRN Reason: Nausea/Vomiting Last Admin: 08/07/17 22:16 Dose: 10 mg Ondansetron HCl (Zofran Inj) 4 mg IVP Q4 PRN PRN Reason: Nausea/Vomiting Last Admin: 08/08/17 09:00 Dose: 4 mg Pantoprazole Sodium (Protonix Inj) 40 mg IVP DAILY [facility] Last Admin: 08/08/17 09:04 Dose: 40 mg Polyethylene Glycol (Miralax) 17 gm PO DAILY [facility] Last Admin: 08/08/17 09:04 Dose: Not Given Pregabalin (Lyrica) 100 mg PO BID [facility] Last Admin: 08/08/17 09:08 Dose: 100 mg Sucralfate (Carafate Oral Susp) 1 gm PO QID [facility] Last Admin: 08/08/17 10:34 Dose: 1 gm - Labs Labs: 08/08/17 06:42 08/08/17 06:42 - Respiratory Exam Respiratory Exam: Clear to Ausculation Bilateral - Cardiovascular Exam Cardiovascular Exam: REGULAR RHYTHM, +S1, +S2 Assessment and Plan - Assessment and Plan (Free Text) Assessment: GASTROPARESIS HYPERTENSION SVT HISTORY Plan: CONTINUE TENORMEN
[2017-08-08 13:20] VITALS: BMI 28.1
--- NOTE | 2017-08-08 14:44 | CP.PCM.PN ---
Subjective - Date & Time of Evaluation Date of Evaluation: 08/08/17 Time of Evaluation: 22:22 - Subjective Subjective: Improved Objective - Vital Signs/Intake and Output Vital Signs (last 24 hours): Temp Pulse Resp BP Pulse Ox 98 F 94 H 18 112/71 96 08/08/17 08:30 08/08/17 09:04 08/08/17 08:30 08/08/17 09:04 08/08/17 08:30 - Medications Medications: Current Medications Atenolol (Tenormin) 50 mg PO DAILY [facility] Last Admin: 08/08/17 09:04 Dose: 50 mg Atorvastatin Calcium (Lipitor) 20 mg PO HS [facility] Last Admin: 08/07/17 22:10 Dose: 20 mg Enoxaparin Sodium (Lovenox) 30 mg SC DAILY [facility] PRN Reason: Protocol Last Admin: 08/08/17 09:03 Dose: 30 mg Metoclopramide HCl 10 mg/ (Sodium Chloride) 52 mls @ 300 mls/hr IVP ONCE PRN PRN Reason: Nausea/Vomiting Last Admin: 08/05/17 19:50 Dose: 50 mls/hr Sodium Chloride (Sodium Chloride 0.45%) 1,000 mls @ 100 mls/hr IV .Q10H [facility] Stop: 08/08/17 18:58 Last Admin: 08/08/17 09:04 Dose: Not Given Insulin Detemir (Levemir) 16 units SC HS [facility] Insulin Human Lispro (Humalog) 0 units SC ACHS [facility] Last Admin: 08/08/17 12:30 Dose: Not Given Insulin Human Lispro (Humalog) 6 units SC AC [facility] Last Admin: 08/08/17 12:30 Dose: 6 u Lactic Acid (Lac-Hydrin 12% Cream (140 G)) 1 ea TOP BID [facility] Last Admin: 08/08/17 09:03 Dose: 1 applic Methadone HCl (Methadone) 5 mg PO Q8 PRN PRN Reason: Pain, severe (8-10) Methadone HCl (Methadone) 10 mg PO BID [facility] Last Admin: 08/08/17 09:07 Dose: 10 mg Methimazole (Tapazole) 5 mg PO BID [facility] Last Admin: 08/08/17 09:04 Dose: 5 mg Metoclopramide HCl (Reglan) 10 mg IVP Q8 PRN PRN Reason: Nausea/Vomiting Last Admin: 08/07/17 22:16 Dose: 10 mg Ondansetron HCl (Zofran Inj) 4 mg IVP Q4 PRN PRN Reason: Nausea/Vomiting Last Admin: 08/08/17 09:00 Dose: 4 mg Pantoprazole Sodium (Protonix Inj) 40 mg IVP DAILY [facility] Last Admin: 08/08/17 09:04 Dose: 40 mg Polyethylene Glycol (Miralax) 17 gm PO DAILY [facility] Last Admin: 08/08/17 09:04 Dose: Not Given Pregabalin (Lyrica) 100 mg PO BID [facility] Last Admin: 08/08/17 09:08 Dose: 100 mg Sucralfate (Carafate Oral Susp) 1 gm PO QID [facility] Last Admin: 08/08/17 12:30 Dose: 1 gm - Labs Labs: 08/08/17 06:42 08/08/17 06:42 - Respiratory Exam Respiratory Exam: NORMAL BREATHING PATTERN - Cardiovascular Exam Cardiovascular Exam: REGULAR RHYTHM - GI/Abdominal Exam GI & Abdominal Exam: Normal Bowel Sounds Assessment and Plan - Assessment and Plan (Free Text) Assessment: Diabetic gastroparesis OIC SIBO Labs IVF GI Endo NIDDM Hx Hyperthyroidism Endo Tapazole Hx SVT Cardiology Chronic pain Opiods
[2017-08-08] MEDS ORDERED: Insulin Detemir 100 Units/ml Inj SC SCH (22:00)
--- NOTE | 2017-08-09 01:11 | PN ---
DATE: 08/08/2017 ENDOCRINOLOGY FOLLOWUP NOTE LOCATION: Room 654. This is a 56-year-old male with recent uncontrolled type 1 insulin-dependent diabetes, now being followed closely for metabolic management. He has been taken off the [employer]tr[employer] insulin pump, just for inpatient management. His glycemic profile has improved accordingly overnight with glucose values ranging from 130 to 141 and 172 mg/dL. His latest chemistry showed a BUN of 29, sodium 136, potassium 3.8, chloride 101, CO2 of 29, glucose 185, and creatinine 1.2. His hemoglobin A1c is 9.5% as noted. So at this time, we will continue the same basal and bolus insulin regimen as ordered to allow for dose equilibration and keep him on the Humalog given as 6 units subcu t.i.d. before meals as ordered. We will continue the Levemir given as basal insulin at 16 units subcu at bedtime daily as given. We will titrate increments as indicated to optimize metabolic control. We will follow and advise accordingly. Rizwana Raygoza MD
[2017-08-09] MEDS: Insulin Lispro (humaLOG) 100 Units/ml Inj SC SCH ×6 (09:20→17:04)
[2017-08-09] MEDS: Sucralfate 1 gm/10 ml Oral Susp UD PO SCH ×3 (09:20→17:02)
[2017-08-09] MEDS: Ammonium Lactate 12% Cream (140 g) TOP SCH ×2 (09:21→17:03)
[2017-08-09] MEDS: Enoxaparin 30 mg Syringe SC SCH (09:21)
[2017-08-09] MEDS: POLYETHYLENE GLYCOL 3350 17 GM/Dose PACKET PO SCH (09:22)
[2017-08-09] MEDS: methIMAzole 5 MG TAB PO SCH ×2 (09:22→17:03)
--- NOTE | 2017-08-09 13:37 | PN ---
DATE: 08/09/2017 SUBJECTIVE: The patient seen and examined. The patient seen for Dr. Gomez while he is away. The patient remains in regular medical floor. Feels better. Still has some nausea still, but much better than before and also is tolerating liquid diet. Had some issues with tolerating diet yesterday. The patient is going to try it again today. The patient denies any chest pain or shortness of breath or any vomiting or constipation. PHYSICAL EXAMINATION: GENERAL: The patient is in no acute distress. VITAL SIGNS: Stable. HEART: S1 and S2, normal and regular. LUNGS: Good bilateral air exchange. ABDOMEN: Soft, nontender. No organomegaly. No fluid. Bowel sounds are plus and normal. No sign of acute abdomen. No guarding, no rigidity, no rebound. EXTREMITIES: No edema. No calf swelling. No tenderness. No acute ischemia. [employer]: Exam is essentially unchanged. DIAGNOSTIC DATA: Available diagnostic data reviewed. ASSESSMENT AND PLAN: Overall, the patient's general medical condition is stable. Plan as ordered. Sung Moreno MD
--- NOTE | 2017-08-09 15:23 | CP.PCM.PN ---
Subjective - Date & Time of Evaluation Date of Evaluation: 08/08/17 Time of Evaluation: 15:00 - Subjective Subjective: FEELS BETTER KEEPING DOWN REGULAR FOOD NO CHEST PAIN, PALPITATIONS OR SOB Objective - Vital Signs/Intake and Output Vital Signs (last 24 hours): Temp Pulse Resp BP Pulse Ox 97.4 F L 75 19 119/81 98 08/09/17 08:43 08/09/17 09:22 08/09/17 08:43 08/09/17 09:22 08/09/17 08:43 - Medications Medications: Current Medications Atenolol (Tenormin) 50 mg PO DAILY [facility] Last Admin: 08/09/17 09:22 Dose: 50 mg Atorvastatin Calcium (Lipitor) 20 mg PO [facility] Last Admin: 08/08/17 21:45 Dose: 20 mg Enoxaparin Sodium (Lovenox) 30 mg SC DAILY [facility] PRN Reason: Protocol Last Admin: 08/09/17 09:21 Dose: 30 mg Metoclopramide HCl 10 mg/ (Sodium Chloride) 52 mls @ 300 mls/hr IVP ONCE PRN PRN Reason: Nausea/Vomiting Last Admin: 08/05/17 19:50 Dose: 50 mls/hr Insulin Detemir (Levemir) 16 units SC HS [facility] Last Admin: 08/08/17 21:44 Dose: 16 units Insulin Human Lispro (Humalog) 0 units SC ACHS [facility] Last Admin: 08/09/17 12:39 Dose: Not Given Insulin Human Lispro (Humalog) 6 units SC AC [facility] Last Admin: 08/09/17 12:40 Dose: 6 u Lactic Acid (Lac-Hydrin 12% Cream (140 G)) 1 ea TOP BID [facility] Last Admin: 08/09/17 09:21 Dose: 1 applic Methadone HCl (Methadone) 5 mg PO Q8 PRN PRN Reason: Pain, severe (8-10) Methadone HCl (Methadone) 10 mg PO BID [facility] Last Admin: 08/09/17 09:28 Dose: 10 mg Methimazole (Tapazole) 5 mg PO BID [facility] Last Admin: 08/09/17 09:22 Dose: 5 mg Metoclopramide HCl (Reglan) 10 mg IVP Q8 PRN PRN Reason: Nausea/Vomiting Last Admin: 08/07/17 22:16 Dose: 10 mg Ondansetron HCl (Zofran Inj) 4 mg IVP Q4 PRN PRN Reason: Nausea/Vomiting Last Admin: 08/08/17 21:48 Dose: 4 mg Pantoprazole Sodium (Protonix Inj) 40 mg IVP DAILY [facility] Last Admin: 08/09/17 09:22 Dose: 40 mg Polyethylene Glycol (Miralax) 17 gm PO DAILY [facility] Last Admin: 08/09/17 09:22 Dose: Not Given Pregabalin (Lyrica) 100 mg PO BID [facility] Last Admin: 08/09/17 09:28 Dose: 100 mg Sucralfate (Carafate Oral Susp) 1 gm PO QID [facility] Last Admin: 08/09/17 12:39 Dose: 1 gm - Labs Labs: 08/08/17 06:42 08/08/17 06:42 - Respiratory Exam Respiratory Exam: Clear to Ausculation Bilateral - Cardiovascular Exam Cardiovascular Exam: REGULAR RHYTHM, +S1, +S2 Assessment and Plan - Assessment and Plan (Free Text) Assessment: GASTROPARESIS WITH VOMITING-IMPROVED HYPERTENSION SVT HISTORY HYPERLIPIDEMIA Plan: CONTINUE TENORMEN, ATORVASTATIN, LOVENOX THE PATIENT STATES HE WILL LOOK INTO GI MOTILITY STUDIES TO SEE IF HE IS A CANDIDATE FOR A GASTRIC PACEMAKER
[2017-08-09 16:08] VITALS: BP 116/79; PULSE 80; RESP 18; TEMP 98.6; O2SAT 95
--- NOTE | 2017-08-09 23:52 | PN ---
DATE: 08/09/2017 LOCATION: Room 654. SUBJECTIVE: This is a 56-year-old male with recent uncontrolled type 1 insulin-dependent diabetes presenting here with intractable vomiting episodes with underlying exacerbation of diabetic gastroparesis and is now being followed closely for metabolic management. He was actually taken off the use of his Medtronic insulin pump while inpatient at this time. His oral intake remains very variable with suboptimal meal portions as noted. His glycemic fluctuations have improved overnight and the glucose values have ranged from 115-195 and 216 mg/dL. LABORATORY DATA: His latest chemistries showed a BUN of 29, sodium 136, potassium 3.8, chloride 101, CO2 29, glucose 185 and creatinine 1.2. His hemoglobin A1c is 9.5% which is again quite elevated and indicative of suboptimal metabolic control of his diabetic condition. ASSESSMENT AND PLAN: So at this time, we will continue the modified basal and bolus insulin regimen as given with Humalog given as 6 units subcu t.i.d. before meals as ordered. We will continue the Levemir given as 16 units subcu at bedtime daily as ordered. We will titrate incremental as indicated to optimize metabolic control. We will follow and advise accordingly. Rizwana Raygoza MD
== END 2017-08-09 18:25 | disposition home or self-care (01) | DRG 74 ==
LOC: H.ER 17:55 → H.ERHOLD 22:15 → H.MEDSURG1 08-06 01:02
PROVIDERS: ADMIT Family Medicine Geriatric Medicine; ATTEND Family Medicine Geriatric Medicine
DX: E10.43 Type 1 diabetes mellitus with diabetic autonomic (poly)neuropathy (principal); K31.84 Gastroparesis; I47.1 Supraventricular tachycardia; F11.20 Opioid dependence, uncomplicated; E10.65 Type 1 diabetes mellitus with hyperglycemia; E10.42 Type 1 diabetes mellitus with diabetic polyneuropathy; E10.51 Type 1 diabetes mellitus with diabetic peripheral angiopathy without gangrene; E10.319 Type 1 diabetes mellitus with unspecified diabetic retinopathy without macular edema; G89.29 Other chronic pain; E10.621 Type 1 diabetes mellitus with foot ulcer; L97.529 Non-pressure chronic ulcer of other part of left foot with unspecified severity; E86.0 Dehydration; K59.03 Drug induced constipation; Z79.4 Long term (current) use of insulin; Z79.84 Long term (current) use of oral hypoglycemic drugs; Z96.41 Presence of insulin pump (external) (internal); I10 Essential (primary) hypertension; E78.5 Hyperlipidemia, unspecified; E05.90 Thyrotoxicosis, unspecified without thyrotoxic crisis or storm; Z91.041 Radiographic dye allergy status; Z91.013 Allergy to seafood